=== PATIENT | male | born 1960 | race Caucasian/White ===

== ENCOUNTER 2021-09-05 10:07 | Emergency (ER) | payer OTHER, SELFPAY ==
[2021-09-05] VITALS (16 sets, daily range): BP systolic 132–169; BP diastolic 72–95; PULSE 75–100; RESP 18–38; TEMP 36.3; O2SAT 93–100; BMI 24.3
--- NOTE | 2021-09-05 10:46 | ED.NAVMDI ---
HPI - Nausea/Vomiting/Diarrhea General Chief complaint: Nausea/Vomiting/Diarrhea Stated complaint: Pancreatitis, vomitting Time Seen by Provider: 09/05/21 10:45 Source: patient Mode of arrival: Ambulatory History of Present Illness HPI Narrative: 61-year-old male nonsmoker with history of pancreatitis presents with a chief complaint of severe right-sided abdominal pain this been present since at least this morning. It is incredibly intense and associated with nausea and vomiting. He states he thinks it started after eating. It is worse with eating and worse with motion. He denies any radiation of his pain. He denies any fever or chills. He denies chest pain or shortness of breath. He was most recently seen an outside facility a few weeks ago for pancreatitis and alcoholic gastritis. Related Data Home Medications Medication Instructions Recorded Confirmed Citalopram Hydrobromide 20 mg PO Q DAY #0 09/09/07 (Citalopram HBr) Previous Rx's Medication Instructions Recorded lorazepam 0.5 mg tablet 0.5 mg PO BID PRN #14 tab 09/05/21 ondansetron 4 mg disintegrating 4 mg PO TID-QID PRN #10 tab 09/05/21 tablet Allergies Allergy/AdvReac Type Severity Reaction Status Date / Time Sulfa (Sulfonamide Allergy Verified 09/05/21 10:24 Antibiotics) Review of Systems Review of Systems Narrative: GENERAL: Denies chills, fatigue, malaise, fever, sweats. HEENT: Denies sinus pain, ear pain, sore throat, difficulty swallowing, dizziness. RESPIRATORY: Denies dyspnea, cough, wheezing, hemoptysis, sputum. CARDIOVASCULAR: Denies chest pain, palpitations, orthopnea, edema, GASTROINTESTINAL: See HPI : Denies dysuria, frequency, incontinence, hematuria, urinary retention. MUSCULOSKELETAL: denies weakness, joint pain, or bony pain SKIN: Denies rash, skin lesions, or other NEUROLOGIC: Denies weakness, headache, numbness, change in speech, confusion, seizures, incoordination. PSYCHIATRIC: No concerning psychosocial issues. 12 point review of systems is negative except for those stated above Patient History Social History Smoking Status: Never smoker Smoking Status: Never smoker Substance Use Type: does not use Exam Narrative Exam Narrative: GENERAL: [61] year old patient appears stated age. Well-developed patient, in mild distress. HEAD: Atraumatic. Normocephalic. EYES: Pupils equal round and reactive. Extraocular motions intact. No scleral icterus. No injection or drainage. ENT: Nose without bleeding, purulent drainage. Throat without erythema, tonsillar hypertrophy or exudate. Airway patent. NECK: Trachea midline. Non tender CARDIOVASCULAR: Regular rate and rhythm without murmurs, gallops, or rubs. RESPIRATORY: Clear to auscultation. Breath sounds equal bilaterally. No wheezes, rales, or rhonchi. GASTROINTESTINAL: Abdomen soft, non-tender, nondistended. EXTREMITIES: No edema or joint tenderness. BACK: Nontender without deformity or crepitance. No flank tenderness. NEURO: AOx3. SKIN: No rash or erythema of visible areas Initial Vital Signs Initial Vital Signs: Vital Signs Temperature 97.4 F L 09/05/21 10:19 Pulse Rate 89 09/05/21 10:19 Respiratory Rate 24 09/05/21 10:19 Blood Pressure 140/92 H 09/05/21 10:19 Pulse Oximetry 99 09/05/21 10:19 Course Orders Ordered: ED Orders 09/05/21 11:13 Complete Blood Count AUTO DIFF Stat Comprehensive Metabolic Panel Stat Lipase Stat 09/05/21 11:19 XR ribs LT min 3V w CXR1V Stat 09/05/21 12:48 CT abdomen pelvis w con Stat 09/05/21 13:52 Urine Culture Stat Urine Microscopic Stat Discontinued Medications Hydromorphone HCl (Hydromorphone 1 Mg Inj) 1 mg IV NOW ONE Stop: 09/05/21 11:45 Last Admin: 09/05/21 11:52 Dose: 1 mg Documented by: TERRI Hydromorphone HCl (Hydromorphone 1 Mg Inj) 1 mg IV NOW ONE Stop: 09/05/21 12:48 Last Admin: 09/05/21 13:03 Dose: 1 mg Documented by: TERRI Sodium Chloride (Normal Saline 0.9%) 1,000 mls @ 1,000 mls/hr IV BOLUS ONE Stop: 09/05/21 12:18 Last Infusion: 09/05/21 12:37 Dose: 0 mls/hr Documented by: Admin: 09/05/21 11:23 Dose: 1,000 mls/hr Documented by: TERRI Sodium Chloride (Normal Saline 0.9%) 1,000 mls @ 1,000 mls/hr IV BOLUS ONE Stop: 09/05/21 14:02 Last Infusion: 09/05/21 15:50 Dose: 0 mls/hr Documented by: Admin: 09/05/21 14:10 Dose: 1,000 mls/hr Documented by: TERRI Lorazepam (Lorazepam 2 Mg/Ml Inj) 1 mg IV NOW ONE Stop: 09/05/21 14:22 Last Admin: 09/05/21 14:41 Dose: 1 mg Documented by: BERTHA Ondansetron HCl (Ondansetron 4 Mg/2 Ml Inj) 4 mg IV NOW ONE Stop: 09/05/21 11:45 Last Admin: 09/05/21 12:37 Dose: 4 mg Documented by: TERRI Ondansetron HCl (Ondansetron 4 Mg/2 Ml Inj) 4 mg IV NOW ONE Stop: 09/05/21 12:48 Last Admin: 09/05/21 14:58 Dose: Not Given Documented by: TERRI Pantoprazole Sodium (Pantoprazole 40 Mg Vial) 40 mg IV NOW ONE Stop: 09/05/21 12:48 Last Admin: 09/05/21 13:03 Dose: 40 mg Documented by: TERRI Vital Signs Vital signs: Vital Signs - 8 hr 09/05/21 11:34 09/05/21 12:00 09/05/21 12:23 Pulse Rate 81 80 76 Respiratory Rate Blood Pressure 143/87 H Pulse Oximetry 100 99 98 09/05/21 12:30 09/05/21 12:37 09/05/21 13:00 Pulse Rate 100 H 86 83 Respiratory Rate Blood Pressure 144/84 H 156/79 H Pulse Oximetry 99 100 98 09/05/21 13:13 09/05/21 13:30 09/05/21 14:00 Pulse Rate 78 75 84 Respiratory Rate 24 Blood Pressure 155/82 H 132/76 143/74 H Pulse Oximetry 98 98 97 09/05/21 14:30 09/05/21 15:00 09/05/21 15:30 Pulse Rate 79 78 83 Respiratory Rate 33 H 32 H 18 Blood Pressure 139/80 152/72 H 135/75 Pulse Oximetry 98 96 96 09/05/21 16:00 Pulse Rate 87 Respiratory Rate 22 Blood Pressure 169/86 H Pulse Oximetry 93 MDM - Nausea/Vomiting/Diarrhea Lab Data Result diagrams: 09/05/21 11:13 09/05/21 11:13 Labs: Lab Results 09/05/21 09/05/21 09/05/21 Range/Units 11:13 11:13 13:52 WBC 6.5 (4.5-11.0) X10^3/uL RBC 4.21 L (4.5-5.9) X10^6/uL Hgb 14.6 (13.5-17.5) g/dL Hct 41.1 (41-53) % MCV 97.7 (80-100) fL MCH 34.6 H (26-34) PG MCHC 35.5 (30-36) % RDW 13.6 (11.6-14.8) % Plt Count 121 L (150-400) X10^3/uL Neut % (Auto) 89.0 H (50-75) % Lymph % (Auto) 4.8 L (25-40) % [place] % (Auto) 6.1 (3-14) % Eos % (Auto) 0.0 L (2-4) % Baso % (Auto) 0.1 (0-2) % Neut # (Auto) 5800 (5972-4970) /uL Lymph # (Auto) 300 L (6552-8692) /uL [place] # (Auto) 400 (0-900) /uL Eos # (Auto) 0 (0-450) /uL Baso # (Auto) 0 (0-100) /uL Sodium 141 (137-145) mmol/L Potassium 3.7 (3.4-5.1) mmol/L Chloride 97 L (98-107) mmol/L Carbon Dioxide 17 L (22-32) mmol/L BUN 12 (9-20) mg/dL Creatinine 0.59 L (0.66-1.25) mg/dL Estimated GFR > 60.0 (>60) mL/min BUN/Creatinine Ratio 20.3 (6-22) Glucose 136 H (80-110) mg/dL Calcium 10.0 (8.4-10.2) mg/dL Total Bilirubin 1.4 H (0.2-1.3) mg/dL AST 107 H (17-59) IU/L ALT 58 H (<50) IU/L Alkaline Phosphatase 130 H (38-126) U/L Total Protein 8.7 H (6.3-8.2) g/dL Albumin 4.9 (3.5-5.0) g/dL Globulin 3.8 (1.7-4.1) g/dL Albumin/Globulin Ratio 1.3 (1.0-2.8) Lipase 66 (23-300) U/L Urine RBC None seen (0-5/HPF) Urine WBC 10-30/hpf H (0-5/HPF) Urine Bacteria Many (>30) H (None) Ur Culture Indicated? Specimen cultured Urine Dip Bedside Urine Glucose Negative Bedside Urine Bilirubin - Negative Bedside Urine Ketone +++ 80 Urine Specific [place] 1.015 Bedside Urine Occult Blood +/- Bedside Urine pH 6.0 Bedside Urine Protein + 30 Bedside Urine Urobilinogen - Negative Bedside Urine Nitrite + Positive Bedside Urine Leukocytes +/- 15 Esterase MDM Narrative Medical decision making narrative: Patient with extensive evaluation and reassuring history and physical exam. Labs are unremarkable, advanced imaging shows no significant findings such as bowel obstruction, pancreatitis or other ominous intra-abdominal finding. Pain is well controlled, vomiting is well controlled, patient is tolerating orals. Extensive return precautions given and questions have been answered to his apparent satisfaction Discharge Plan Departure Patient Disposition: Home Clinical Impression: Abdominal pain, Vomiting Instructions: DI for Abdominal Pain-Adult, DI for Vomiting -- Adult Activity Restrictions/Additional Instructions: *You have been diagnosed with [abdominal pain and vomiting. Your history, physical exam, labs and imaging are very reassuring. There is no suggestion of pancreatitis, bowel obstruction or other significant intra-abdominal pathology. *What to do: *Please continue to take your regular medications as directed. [ x] New medication prescriptions sent to your pharmacy: [[facility] ] [ ] New medication written as a paper prescription [ ] No new medications given *Please follow up with your primary care provider in 2-3 days, call for an appointment. Let them know you were seen in the Emergency Department and that we ask that you be seen in follow up. We will electronically transmit a record of today's note if your PCP is in our system * please use a clear liquid diet for the next 48 hours and then avoid alcohol, nicotine, spicy foods, fatty foods and acidic foods. *Return to Emergency Department if you should have any new, worsening or concerning symptoms, such as [fever greater than 101 F, shaking chills, worsening pain, persistent vomiting or other bothersome symptoms] Prescriptions: New ondansetron 4 mg tablet,disintegrating 4 mg PO TID-QID PRN (Reason: nausea and vomiting) Qty: 10 0RF lorazepam 0.5 mg tablet 0.5 mg PO BID PRN (Reason: nausea and vomiting) Qty: 14 0RF No Action Citalopram Hydrobromide (Citalopram HBr) 20 mg PO Q DAY Qty: 0 0RF
[2021-09-05 11:17] LABS: Add Manual Diff / Slide Review NO; Basophils Absolute Auto 0 /uL (0-100); Basophils Percent Auto 0.1 % (0-2); Eosinophils Absolute Auto 0 /uL (0-450); Hematocrit 41.1 % (41-53); Hemoglobin 14.6 g/dL (13.5-17.5); Lymphocytes Absolute Auto 300 /uL (1100-4500); Lymphocytes Percent Auto 4.8 % (25-40); Mean Corpuscular HGB Conc 35.5 % (30-36); Mean Corpuscular Hemoglobin 34.6 PG (26-34); Mean Corpuscular Volume 97.7 fL (80-100); Monocytes Absolute Auto 400 /uL (0-900); Monocytes Percent Auto 6.1 % (3-14); Neutrophils Absolute Auto 5800 /uL (1500-7000); Platelet Count 121 X10^3/uL (150-400); Red Blood Cell Count 4.21 X10^6/uL (4.5-5.9); Red Cell Distribution Width 13.6 % (11.6-14.8); White Blood Cell Count 6.5 X10^3/uL (4.5-11.0)
[2021-09-05] MEDS: ONDANSETRON 4 MG/2 ML INJ (11:18)
--- NOTE | 2021-09-05 11:19 | DI.RAD.S_ITS ---
PROCEDURE: XR RIBS LT MIN 3V W CXR1V INDICATIONS: fall over carpet and landed on toilet TECHNIQUE: 2 views of the left ribs were acquired, along with a single view chest. COMPARISON: None. FINDINGS: Surgical changes and devices: None. Bones and chest wall: Minimally displaced fracture involving left anterolateral 9th rib is seen. No suspicious bony lesions. Overlying soft tissues appear unremarkable. Lungs and pleura: No pleural effusions or pneumothorax. Lungs appear clear. Mediastinum: Mediastinal contours appear normal. Heart size is normal. IMPRESSION: Minimally displaced left anterolateral 9th rib fracture. No focal infiltrate, pleural effusion or pneumothorax. Dictated by: Mike Regalado M.D. on 09/05/2021 at 12:06 Approved by: Mike Regalado M.D. on 09/05/2021 at 12:07
[2021-09-05] MEDS: SODIUM CHLORIDE 0.9% 1,000 ML 1000 ML IV ×2 (11:23→14:10)
[2021-09-05 11:30] LABS: Albumin 4.9 g/dL (3.5-5.0); Albumin Globulin Ratio 1.3 (1.0-2.8); Alkaline Phosphatase 130 U/L (38-126); Aspartate Aminotransferase 107 IU/L (17-59); BUN Creatinine Ratio 20.3 (6-22); Bilirubin Total 1.4 mg/dL (0.2-1.3); Blood Urea Nitrogen 12 mg/dL (9-20); Carbon Dioxide 17 mmol/L (22-32); Chloride 97 mmol/L (98-107); Estimated Glomerular Filt Rate > 60.0 mL/min (>60); Globulin 3.8 g/dL (1.7-4.1); Glucose 136 mg/dL (80-110); HEMOLYSIS < 15 (0-50); Lipase 66 U/L (23-300); Potassium 3.7 mmol/L (3.4-5.1); Sodium 141 mmol/L (137-145); Total Protein 8.7 g/dL (6.3-8.2)
[2021-09-05 11:37] LABS: Alanine Aminotransferase 58 IU/L (<50)
[2021-09-05] MEDS: HYDROMORPHONE 1 MG INJ IV ×2 (11:52→13:03)
[2021-09-05] MEDS: ONDANSETRON 4 MG/2 ML INJ IV (12:37)
--- NOTE | 2021-09-05 12:48 | DI.CT.S_ITS ---
PROCEDURE: CT ABDOMEN PELVIS W CON INDICATIONS: severe abdominal pain TECHNIQUE: After the administration of intravenous contrast, axial sections acquired from the lung bases to the pubic symphysis. Coronal and sagittal reformats were performed. For radiation dose reduction, the following was used: automated exposure control, adjustment of mA and/or kV according to patient size. COMPARISON: [facility], CR, XR RIBS LT MIN 3V W CXR1V, 09/05/2021, 11:12. FINDINGS: Image quality: Excellent. Lung bases: Unremarkable. Heart: No significant findings. ABDOMEN: Liver: Liver is normal in size. Moderate to severe hepatic steatosis is seen, no discrete hepatic lesion. No signs of liver laceration. Gallbladder: Gallbladder is surgically absent. Biliary ducts: Unremarkable. Pancreas: Unremarkable. Spleen: Unremarkable. Adrenal Glands: Unremarkable. Kidneys and Ureters: Unremarkable. Stomach and Bowel: There is no bowel obstruction or abnormal bowel wall thickening. Sigmoid diverticulosis is seen, no CT evidence of acute diverticulitis. No mesenteric fat stranding. Small hiatal hernia is seen. Peritoneum: No abnormal intraperitoneal fluid. No free air. Ventral Wall: No hernias. Abdominal Nodes: No retroperitoneal or mesenteric adenopathy by size criteria. Vessels: Aorta and inferior vena cava are normal in size. [id number] atherosclerotic calcifications in abdominal aorta is seen. PELVIS: Pelvic Organs: Unremarkable. Bladder: Unremarkable. Pelvic Nodes: No enlarged lymph nodes. Miscellaneous: No hernias are seen. Bones: No suspicious intraosseous lesion. Patient's known minimally displaced left anterolateral 9th rib fracture is again seen series 4, image 12. No acute vertebral body compression fracture. Degenerative disc disease at L3-4 through L5-S1 levels are seen. Osteoarthritic changes are noted throughout bony pelvis. No acute pelvic fracture or dislocation. IMPRESSION: 1. No acute solid organ injury within abdomen or pelvis. No bowel obstruction. No free fluid or free air. 2. Moderate to severe hepatic steatosis. Prior cholecystectomy. 3. Minimally displaced left lateral 9th rib fracture. No other fracture or dislocation is seen in abdomen or pelvis. Dictated by: Mike Regalado M.D. on 09/05/2021 at 13:31 Approved by: Mike Regalado M.D. on 09/05/2021 at 13:37
[2021-09-05] MEDS: PANTOPRAZOLE 40 MG VIAL IV (13:03)
[2021-09-05 14:13] LABS: RBC Urine None Seen (0-5/HPF); WBC Urine 10-30/HPF (0-5/HPF)
[2021-09-05 14:14] LABS: Bacteria Urine Many (>30); Culture Indicated Urine Specimen Cultured
[2021-09-05] MEDS: LORazepam 2 MG/ML INJ 1 MG IV (14:41)
== END 2021-09-05 16:21 | disposition home or self-care (01) ==
PROVIDERS: Emergency Provider Emergency Medicine
DX: R10.9 Unspecified abdominal pain (principal); R11.2 Nausea with vomiting, unspecified
CPT/HCPCS: 36415; 71101; 74177; 80053; 81003; 81015; 83690; 85025; 87077; 87086; 87186; 93005; 93010; 96361; 96374; 96375; 96376; 99284; C9113; J1170; J2060; J2405

== ENCOUNTER 2021-09-06 02:46 | Emergency (ER) | payer OTHER, MEDICAID, SELFPAY ==
[2021-09-06] VITALS (9 sets, daily range): BP systolic 135–165; BP diastolic 89–92; PULSE 66–87; RESP 12–23; TEMP 37.1; O2SAT 94–100
--- NOTE | 2021-09-06 02:55 | ED_ITS ---
HPI - Abdominal Pain General Chief Complaint: Abdominal Pain Stated Complaint: throwing up, body aches Time Seen by Provider: 09/06/21 02:54 Source: patient and old records reviewed Mode of arrival: Ambulatory Limitations: no limitations History of Present Illness HPI narrative: This is a 61-year-old male with history of pancreatitis who returns after being seen on 07/05 for right upper quadrant abdominal pain, nausea vomiting body aches that started acutely yesterday. Patient states he has had a couple episod es in the past over the past year. He has felt shaky and chilled. He denied chest pain or shortness of breath. He states pain is right upper quadrant but also into his back. Patient denies diarrhea constipation states he has had normal bowel movements with no hematochezia or melena. Denies dysuria, urgency or frequency. States he has been told he has had frequent bladder infections in the past. Patient states he has had a cholecystectomy and appendectomy he denies daily medications. He is allergic to sulfa. Denies tobacco, denies alcohol, denies illicit. Note from 09/05/21, notes patient seen recently for alcoholic gastritis and pancreatitis. Related Data Home Medications Medication Instructions Recorded Confirmed Citalopram Hydrobromide 20 mg PO Q DAY #0 09/09/07 (Citalopram HBr) Previous Rx's Medication Instructions Recorded lorazepam 0.5 mg tablet 0.5 mg PO BID PRN #14 tab 09/05/21 ondansetron 4 mg disintegrating 4 mg PO TID-QID PRN #10 tab 09/05/21 tablet metoclopramide HCl 10 mg tablet 10 mg PO Q6H #60 tab 09/07/21 (Reglan) Allergies Allergy/AdvReac Type Severity Reaction Status Date / Time Sulfa (Sulfonamide Allergy Verified 09/06/21 07:29 Antibiotics) Review of Systems Review of Systems ROS Unobtainable: All systems reviewed & are unremarkable except as noted in HPI and below Patient History Medical History Fatty liver due to alcoholism History of alcohol abuse Pancreatitis Surgical History S/P cholecystectomy Social History Smoking Status: Never smoker Smoking Status: Never smoker Substance Use Type: does not use Exam Narrative Exam Narrative: GENERAL: Alert and oriented x three, male in moderate distress. HEENT: Head normocephalic, atraumatic, EOMI, pupils reactive, no scleral icterus or jaundice. Face symmetric, moist mucous membranes NECK: Supple, full range of motion CARDIOVASCULAR: Regular rate and rhythm without murmurs, rubs or gallops. RESPIRATORY: Breath sounds equal bilaterally, no wheezes rales or rhonchi. ABDOMEN: Soft, nondistended. Positive for right upper quadrant tenderness. Bowel sounds all 4 quadrants. No guarding or rebound, rigidity, no mass : No CVA tenderness EXTREMITIES: Normal range of motion, no clubbing or edema. Neurovascularly intact. NEUROLOGICAL: Cranial nerves II through XII grossly intact. Moving all extremities SKIN: Warm, dry, no petechiae, no rashes or lesions. Initial Vital Signs Initial Vital Signs: Vital Signs Temperature 98.8 F 09/06/21 02:56 Pulse Rate 87 09/06/21 02:56 Respiratory Rate 22 09/06/21 02:56 Blood Pressure 165/89 H 09/06/21 02:56 Pulse Oximetry 98 09/06/21 02:56 Course Orders Ordered: Discontinued Medications Sodium Chloride (Normal Saline 0.9%) 1,000 mls @ 150 mls/hr IV CONT TAYLOR Last Infusion: 09/06/21 06:46 Dose: 150 mls/hr Documented by: Admin: 09/06/21 03:49 Dose: 150 mls/hr Documented by: MARY Ceftriaxone Sodium 1,000 mg/ (Sodium Chloride) 100 mls @ 200 mls/hr IV NOW ONE Stop: 09/06/21 04:31 Last Infusion: 09/06/21 05:31 Dose: 0 mls/hr Documented by: Admin: 09/06/21 04:47 Dose: 200 mls/hr Documented by: MARY Ketorolac Tromethamine (Ketorolac 30 Mg/Ml Vial) 15 mg IV NOW ONE Stop: 09/06/21 02:56 Last Admin: 09/06/21 03:48 Dose: 15 mg Documented by: MARY Ondansetron HCl (Ondansetron 4 Mg/2 Ml Inj) 4 mg IV NOW ONE Stop: 09/06/21 02:56 Last Admin: 09/06/21 03:48 Dose: 4 mg Documented by: MARY Reevaluation(s) Reevaluation #1: Patient has improved. We discussed that his labs have also improved. I recommend that he start his medications which were sent to local pharmacy and to fill these they may be helpful. We discussed patient's ultrasound which shows possible cystic lesion or changes and patient is well aware of these and states they have been imaged before. Time: 04:51 Vital Signs Vital signs: Vital Signs - 8 hr 09/06/21 02:56 09/06/21 03:47 09/06/21 04:00 Temperature 98.8 F Pulse Rate 87 72 66 Respiratory Rate 22 21 13 Blood Pressure 165/89 H Pulse Oximetry 98 100 94 09/06/21 04:30 09/06/21 05:00 09/06/21 05:30 Temperature Pulse Rate 78 66 67 Respiratory Rate 22 16 12 Blood Pressure Pulse Oximetry 98 97 97 09/06/21 06:00 Temperature Pulse Rate 67 Respiratory Rate 14 Blood Pressure Pulse Oximetry 96 MDM - Abdominal Pain Lab Data Result diagrams: 09/06/21 03:45 09/06/21 03:45 Labs: Lab Results 09/06/21 09/06/21 09/06/21 Range/Units 03:30 03:30 03:45 WBC 6.0 (4.5-11.0) X10^3/uL RBC 4.11 L (4.5-5.9) X10^6/uL Hgb 13.9 (13.5-17.5) g/dL Hct 40.1 L (41-53) % MCV 97.5 (80-100) fL MCH 34.0 (26-34) PG MCHC 34.8 (30-36) % RDW 13.9 (11.6-14.8) % Plt Count 103 L (150-400) X10^3/uL Neut % (Auto) 81.9 H (50-75) % Lymph % (Auto) 9.8 L (25-40) % [place] % (Auto) 8.2 (3-14) % Eos % (Auto) 0.0 L (2-4) % Baso % (Auto) 0.1 (0-2) % Neut # (Auto) 4900 (8701-3575) /uL Lymph # (Auto) 600 L (8387-4837) /uL [place] # (Auto) 500 (0-900) /uL Eos # (Auto) 0 (0-450) /uL Baso # (Auto) 0 (0-100) /uL Sodium (137-145) mmol/L Potassium (3.4-5.1) mmol/L Chloride (98-107) mmol/L Carbon Dioxide (22-32) mmol/L BUN (9-20) mg/dL Creatinine (0.66-1.25) mg/dL Estimated GFR (>60) mL/min BUN/Creatinine Ratio (6-22) Glucose (80-110) mg/dL Lactate (0.7-2.1) mmol/L Calcium (8.4-10.2) mg/dL Total Bilirubin (0.2-1.3) mg/dL AST (17-59) IU/L ALT (<50) IU/L Alkaline Phosphatase (38-126) U/L Total Protein (6.3-8.2) g/dL Albumin (3.5-5.0) g/dL Globulin (1.7-4.1) g/dL Albumin/Globulin Ratio (1.0-2.8) Lipase (23-300) U/L Ur Bilirubin Confirm Negative (Negative) Urine RBC 1-5/hpf (0-5/HPF) Urine WBC 5-10/hpf H (0-5/HPF) Urine Bacteria Many (>30) H (None) Ur Culture Indicated? Culture not indicate Micro UA Comment * 09/06/21 09/06/21 09/06/21 Range/Units 03:45 03:45 06:05 WBC (4.5-11.0) X10^3/uL RBC (4.5-5.9) X10^6/uL Hgb (13.5-17.5) g/dL Hct (41-53) % MCV (80-100) fL MCH (26-34) PG MCHC (30-36) % RDW (11.6-14.8) % Plt Count (150-400) X10^3/uL Neut % (Auto) (50-75) % Lymph % (Auto) (25-40) % [place] % (Auto) (3-14) % Eos % (Auto) (2-4) % Baso % (Auto) (0-2) % Neut # (Auto) (2233-3914) /uL Lymph # (Auto) (5750-5174) /uL [place] # (Auto) (0-900) /uL Eos # (Auto) (0-450) /uL Baso # (Auto) (0-100) /uL Sodium 138 (137-145) mmol/L Potassium 3.3 L (3.4-5.1) mmol/L Chloride 100 (98-107) mmol/L Carbon Dioxide 26 (22-32) mmol/L BUN 12 (9-20) mg/dL Creatinine 0.66 (0.66-1.25) mg/dL Estimated GFR > 60.0 (>60) mL/min BUN/Creatinine Ratio 18.2 (6-22) Glucose 132 H (80-110) mg/dL Lactate 2.3 H 0.8 (0.7-2.1) mmol/L Calcium 9.8 (8.4-10.2) mg/dL Total Bilirubin 1.3 (0.2-1.3) mg/dL AST 71 H (17-59) IU/L ALT 43 (<50) IU/L Alkaline Phosphatase 108 (38-126) U/L Total Protein 8.0 (6.3-8.2) g/dL Albumin 4.5 (3.5-5.0) g/dL Globulin 3.5 (1.7-4.1) g/dL Albumin/Globulin Ratio 1.3 (1.0-2.8) Lipase 162 D (23-300) U/L Ur Bilirubin Confirm (Negative) Urine RBC (0-5/HPF) Urine WBC (0-5/HPF) Urine Bacteria (None) Ur Culture Indicated? Micro UA Comment Point of care testing: Urine Dip Bedside Urine Glucose Negative Bedside Urine Bilirubin + 1 Bedside Urine Ketone + 15 Urine Specific [place] 1.015 Bedside Urine Occult Blood +/- Bedside Urine pH 6.5 Bedside Urine Protein + 30 Bedside Urine Urobilinogen +/- 1mg Bedside Urine Nitrite - Negative Bedside Urine Leukocytes + 70 Esterase Imaging Data US - abdomen: Radiologist's Impression: Hepatic steatosis. Intermittent hypoechoic structure within the head of the pancreas. Possibly an intraductal papillary mucinous neoplasm. Recommend contrast enhanced MRI of the abdomen/MRCP for further evaluation. Postsurgical findings of cholecystectomy. Common duct is normal in diameter and measures 10 mm. No free fluid or adenopathy noted. MDM Narrative Medical decision making narrative: This is a 61-year-old male comes in with abdominal pain, nausea and vomiting patient was seen here the day prior had CT abdomen pelvis, lab work which was reviewed and today has improved. Patient improved with medications. We repeated with an ultrasound and he has possible lesions on the pancreas. When discussed patient states he is aware these they have been imaged in are followed. Patient has reassuring labs and improving exam he was discharged home and to fill his medications which he had not from the day prior as they will likely be helpful for him symptoms. Discharge Plan Departure Patient Disposition: Home Clinical Impression: Abdominal pain Instructions: DI for Abdominal Pain-Adult Activity Restrictions/Additional Instructions: Your abdominal labs and liver enzymes are improved from yesterday. Your urine shows possible signs of infection I would await urine culture and if positive can have antibiotics called in for you. I would recommend filling and starting the medications prescribed by Dr. Ferreira yesterday. Your prescription was sent to [facility] in [facility]. Please return for fevers, new chest pain or shortness of breath, persistent vomiting, black or bloody stools or other new or concerning symptoms. Prescriptions: No Action Citalopram Hydrobromide (Citalopram HBr) 20 mg PO Q DAY Qty: 0 0RF ondansetron 4 mg tablet,disintegrating 4 mg PO TID-QID PRN (Reason: nausea and vomiting) Qty: 10 0RF lorazepam 0.5 mg tablet 0.5 mg PO BID PRN (Reason: nausea and vomiting) Qty: 14 0RF metoclopramide HCl [Reglan] 10 mg tablet 10 mg PO Q6H Qty: 60 0RF
--- NOTE | 2021-09-06 02:56 | DI.US.S_ITS ---
PROCEDURE: US ABDOMEN LIMITED INDICATIONS: RUQ PAIN, VOMITING TECHNIQUE: Real-time scanning was performed of the abdominal and retroperitoneal organs, with image documentation. COMPARISON: [facility], CT, CT ABDOMEN PELVIS W CON, 09/05/2021, 13:05. FINDINGS: Liver: Liver is normal in size. Increased liver parenchymal echotexture is seen consistent with hepatic steatosis unchanged from CT study. No discrete hepatic lesion is noted. Gallbladder: Gallbladder is surgically absent. Biliary ducts: Intrahepatic bile ducts are non-dilated. Extrahepatic bile duct caliber measures 9.5 mm. Normal is 6-7 mm or less in diameter, or 10 mm or less post-cholecystectomy. Pancreas: There is a 9 x 7 x 9 mm hypoechoic structure seen in pancreatic head region with through acoustic enhancement. No internal vascularity is seen. Rest of the pancreas is within normal limits. Miscellaneous: No free abdominal fluid. IMPRESSION: 1. Hepatic steatosis, no discrete hepatic lesion. 2. Indeterminate subcentimeter hypoechoic structure involving pancreatic head which may represent IPMN. This can be further evaluated with MRI of abdomen and MRCP if clinically indicated. 3. Postsurgical changes from cholecystectomy. Common bile duct size is in the upper limits of normal. No intrahepatic biliary ductal dilatation. No significant discrepancies from preliminary reading. Dictated by: Mike Regalado M.D. on 09/06/2021 at 8:06 Approved by: Mike Regalado M.D. on 09/06/2021 at 8:09
[2021-09-06] MEDS: KETOROLAC 30 MG/ML VIAL 15 MG IV (03:48)
[2021-09-06] MEDS: ONDANSETRON 4 MG/2 ML INJ IV (03:48)
[2021-09-06] MEDS: SODIUM CHLORIDE 0.9% 1,000 ML 150 ML IV (03:49)
[2021-09-06 03:55] LABS: Add Manual Diff / Slide Review NO; Basophils Absolute Auto 0 /uL (0-100); Basophils Percent Auto 0.1 % (0-2); Eosinophils Absolute Auto 0 /uL (0-450); Hematocrit 40.1 % (41-53); Hemoglobin 13.9 g/dL (13.5-17.5); Lymphocytes Absolute Auto 600 /uL (1100-4500); Lymphocytes Percent Auto 9.8 % (25-40); Mean Corpuscular HGB Conc 34.8 % (30-36); Mean Corpuscular Volume 97.5 fL (80-100); Monocytes Absolute Auto 500 /uL (0-900); Monocytes Percent Auto 8.2 % (3-14); Neutrophils Absolute Auto 4900 /uL (1500-7000); Neutrophils Percent Auto 81.9 % (50-75); Platelet Count 103 X10^3/uL (150-400); Red Blood Cell Count 4.11 X10^6/uL (4.5-5.9); Red Cell Distribution Width 13.9 % (11.6-14.8)
[2021-09-06 03:59] LABS: Lactate (Lactic Acid) 2.3 mmol/L (0.7-2.1)
[2021-09-06 04:01] LABS: Alanine Aminotransferase 43 IU/L (<50); Albumin 4.5 g/dL (3.5-5.0); Albumin Globulin Ratio 1.3 (1.0-2.8); Alkaline Phosphatase 108 U/L (38-126); Aspartate Aminotransferase 71 IU/L (17-59); BUN Creatinine Ratio 18.2 (6-22); Bilirubin Total 1.3 mg/dL (0.2-1.3); Blood Urea Nitrogen 12 mg/dL (9-20); Calcium 9.8 mg/dL (8.4-10.2); Carbon Dioxide 26 mmol/L (22-32); Chloride 100 mmol/L (98-107); Estimated Glomerular Filt Rate > 60.0 mL/min (>60); Globulin 3.5 g/dL (1.7-4.1); Glucose 132 mg/dL (80-110); HEMOLYSIS < 15 (0-50); Lipase 162 U/L (23-300); Potassium 3.3 mmol/L (3.4-5.1); Sodium 138 mmol/L (137-145)
[2021-09-06 04:25] LABS: Ictotest Urine Negative (Negative)
[2021-09-06 04:38] LABS: Bacteria Urine Many (>30); RBC Urine 1-5/HPF (0-5/HPF); WBC Urine 5-10/HPF (0-5/HPF)
[2021-09-06] MEDS: cefTRIAXone 1,000 MG in SODIUM CHLORIDE 0.9% 100 ML 200 ML IV (04:47)
[2021-09-06 05:45] LABS: Reflexed Lactate in 2 Hours Y
[2021-09-06 06:21] LABS: Lactate 2HR (Lactic Acid Rflx) 0.8 mmol/L (0.7-2.1)
== END 2021-09-06 06:50 | disposition home or self-care (01) ==
PROVIDERS: Emergency Provider Emergency Medicine
DX: R10.11 Right upper quadrant pain (principal); R11.2 Nausea with vomiting, unspecified
CPT/HCPCS: 36415; 76705; 80053; 81003; 81015; 83605; 83690; 85025; 87040; 87077; 87086; 87186; 99284; J0696; J1885; J2405

== ENCOUNTER 2021-09-06 07:13 | Emergency (ER) | payer OTHER, MEDICAID, SELFPAY ==
[2021-09-06] VITALS (8 sets, daily range): BP systolic 118–158; BP diastolic 69–94; PULSE 64–97; RESP 16–18; TEMP 36.6; O2SAT 95–100; BMI 25.0
--- NOTE | 2021-09-06 08:35 | ED_ITS ---
HPI - Nausea/Vomiting/Diarrhea General Chief complaint: Nausea/Vomiting/Diarrhea Stated complaint: throwing up Time Seen by Provider: 09/06/21 07:38 Source: patient Mode of arrival: Ambulatory History of Present Illness HPI Narrative: Will this is the patient's 3rd ER visit in the last 2 days. He was discharged this morning just prior to my arrival. He was also seen here yesterday. He has a history of pancreatitis/alcoholic pancreatitis. He had onset of epigastric abdominal pain 2 days ago. He has developed nausea vomiting and ongoing pain. The pain is not currently radiated to the back. After having a com closure to his recent ER visit, he developed nausea vomiting almost immediately after discharge. He was discharged on lorazepam and Zofran yesterday yesterday, he failed to get to the pharmacy to cotton picker his medications. CT was done yesterday. He has fatty liver, status post cholecystectomy. The pancreas is normal in CT. He fell about a week ago, a left 9th rib fracture is seen on CT. Ultrasound was done last night. Ultrasound revealed a hypoechoic structure at the pancreatic head. Radiology suggested MRCP. Related Data Home Medications Medication Instructions Recorded Confirmed Citalopram Hydrobromide 20 mg PO Q DAY #0 09/09/07 (Citalopram HBr) Previous Rx's Medication Instructions Recorded lorazepam 0.5 mg tablet 0.5 mg PO BID PRN #14 tab 09/05/21 ondansetron 4 mg disintegrating 4 mg PO TID-QID PRN #10 tab 09/05/21 tablet metoclopramide HCl 10 mg tablet 10 mg PO Q6H #60 tab 09/07/21 (Reglan) Allergies Allergy/AdvReac Type Severity Reaction Status Date / Time Sulfa (Sulfonamide Allergy Verified 09/06/21 07:29 Antibiotics) Review of Systems Constitutional Constitutional: Reports anorexia, Denies body ache(s), Denies chills, Denies fatigue, Denies fever(s), Denies headache(s) and Denies weakness ENT Ears, Nose, Mouth, and Throat: Denies dizziness, Denies headache(s), Denies neck pain, Denies sinus pressure and Denies sore throat Cardiovascular Cardiovascular: Denies chest pain, Denies syncope, Denies rapid heart rate, Denies pedal edema and Denies dyspnea Respiratory Respiratory: Denies cough and Denies dyspnea Gastrointestinal Gastrointestinal: Reports as per HPI Genitourinary Genitourinary: Denies dysuria, Denies testicular pain and Denies urinary frequency Musculoskeletal Musculoskeletal: Reports back pain and Denies neck pain Integumentary/Breasts Skin/Breast: Denies lesions and Denies rash Neurologic Neurologic: Denies confusion, Denies dizziness, Denies syncope, Denies headache(s) and Denies weakness Psychiatric Psychiatric: Denies confusion and Denies depression Endocrine Endocrine: Denies fatigue Hematologic/Lymphatic On Anticoagulants: No Patient History Medical History (Updated 09/06/21 @ 13:00 by Jose Gutierrez MD) Fatty liver due to alcoholism History of alcohol abuse Pancreatitis Surgical History (Updated 09/06/21 @ 13:00 by Jose Gutierrez MD) S/P cholecystectomy Social History Smoking Status: Never smoker Smoking Status: Never smoker alcohol intake frequency: other Substance Use Type: does not use Exam Initial Vital Signs Initial Vital Signs: Vital Signs Temperature 98 F 09/06/21 07:27 Pulse Rate 87 09/06/21 07:27 Respiratory Rate 17 09/06/21 07:27 Blood Pressure 158/94 H 09/06/21 07:27 Pulse Oximetry 100 09/06/21 07:27 Const General: cooperative, in distress and anxious Orientation: Orientation (Normal) [facility] Head: normal to inspection, normocephalic and atraumatic Mouth: oral mucosae normal Throat: posterior oropharynx normal Eyes General: appearance normal, both eyes and all related structures Other: No icterus Neck Neck: supple, No lymphadenopathy and No JVD Thyroid: thyroid normal Chest Chest: normal inspection of the chest Resp Effort & Inspection: normal respiratory effort Auscultation: clear to auscultation bilaterally Cardio Rate: regular rate Rhythm: regular rhythm Heart Sounds: S1 normal, S2 normal, no click and no gallops GI Other: Epigastric tenderness with mild guarding. No distension. Normal bowel sounds. No palpable masses. Back/Spine/Pelvis Back: normal to inspection and No CVA tenderness Skin General: no rashes or lesions noted Neuro General: patient alert, patient awake and no focal motor deficits Extrem General: normal to inspection, no pedal edema and no calf tenderness Psych Appearance: grossly normal Course Course Course Narrative: Pain and nausea have improved greatly after receiving Dilaudid and Reglan. MRI revealed multiple pancreatic findings(IPMNs), see the radiology read. The patient is familiar with 1-3 mm lesions in his pancreas from a prior study. He is advised to contact his PCM and arrange GI follow-up. He responded well to Reglan. I prescribed this medication for him. Orders Ordered: Discontinued Medications Diphenhydramine HCl (Diphenhydramine 50 Mg/Ml Vial) 25 mg IV NOW ONE Stop: 09/06/21 08:57 Last Admin: 09/06/21 10:21 Dose: 25 mg Documented by: NATALIA Hydromorphone HCl (Hydromorphone 1 Mg Inj) 1 mg IV NOW ONE Stop: 09/06/21 08:57 Last Admin: 09/06/21 10:21 Dose: 1 mg Documented by: NATALIA Sodium Chloride (Normal Saline 0.9%) 1,000 mls @ 1,000 mls/hr IV BOLUS ONE Stop: 09/06/21 09:55 Last Infusion: 09/06/21 12:27 Dose: 0 mls/hr Documented by: Admin: 09/06/21 10:21 Dose: 1,000 mls/hr Documented by: NATALIA Metoclopramide HCl (Metoclopramide 10 Mg/2 Ml Inj) 10 mg IV NOW ONE Stop: 09/06/21 08:57 Last Admin: 09/06/21 10:21 Dose: 10 mg Documented by: NATALIA Vital Signs Vital signs: Vital Signs - 8 hr 09/06/21 07:27 09/06/21 08:30 09/06/21 09:30 Temperature 98 F Pulse Rate 87 66 69 Respiratory Rate 17 17 17 Blood Pressure 158/94 H 147/69 H 138/77 Pulse Oximetry 100 97 95 09/06/21 10:30 09/06/21 11:00 09/06/21 11:30 Temperature Pulse Rate 70 64 94 H Respiratory Rate 17 18 Blood Pressure 131/74 129/73 118/72 Pulse Oximetry 95 97 95 09/06/21 12:00 09/06/21 12:30 Temperature Pulse Rate 97 H 65 Respiratory Rate 16 16 Blood Pressure 125/75 132/76 Pulse Oximetry 97 97 MDM - Nausea/Vomiting/Diarrhea Lab Data Result diagrams: 09/06/21 10:11 09/06/21 10:11 Labs: Lab Results 09/06/21 09/06/21 Range/Units 10:11 10:11 WBC 4.4 L (4.5-11.0) X10^3/uL RBC 3.51 L (4.5-5.9) X10^6/uL Hgb 12.0 L (13.5-17.5) g/dL Hct 34.3 L (41-53) % MCV 97.7 (80-100) fL MCH 34.2 H (26-34) PG MCHC 35.0 (30-36) % RDW 13.9 (11.6-14.8) % Plt Count 72 L (150-400) X10^3/uL Neut % (Auto) 78.3 H (50-75) % Lymph % (Auto) 13.1 L (25-40) % [place] % (Auto) 8.3 (3-14) % Eos % (Auto) 0.2 L (2-4) % Baso % (Auto) 0.1 (0-2) % Neut # (Auto) 3400 (1909-5291) /uL Lymph # (Auto) 600 L (9891-8762) /uL [place] # (Auto) 400 (0-900) /uL Eos # (Auto) 0 (0-450) /uL Baso # (Auto) 0 (0-100) /uL Sodium 136 L (137-145) mmol/L Potassium 3.4 (3.4-5.1) mmol/L Chloride 103 (98-107) mmol/L Carbon Dioxide 27 (22-32) mmol/L BUN 12 (9-20) mg/dL Creatinine 0.61 L (0.66-1.25) mg/dL Estimated GFR > 60.0 (>60) mL/min BUN/Creatinine Ratio 19.7 (6-22) Glucose 113 H (80-110) mg/dL Calcium 8.7 (8.4-10.2) mg/dL Total Bilirubin 0.8 (0.2-1.3) mg/dL AST 53 (17-59) IU/L ALT 36 (<50) IU/L Alkaline Phosphatase 83 (38-126) U/L Total Protein 6.4 (6.3-8.2) g/dL Albumin 3.5 (3.5-5.0) g/dL Globulin 2.9 (1.7-4.1) g/dL Albumin/Globulin Ratio 1.2 (1.0-2.8) Lipase 227 (23-300) U/L Ethyl Alcohol < 10 ( - 10) mg/dL Imaging Data Abdominal MRI/MRCP: Radiologist's Impression: Launch?Image [address] [id number] Magnetic Resonance Report Signed Patient: Elvis Zheng MR#: [id number] : 1960 Acct:[id number] Age/Sex: 61 / M Date of Service: 09/06/21 Loc: ED Accession Number: [id number] ?? Procedure: MR abdomen wo con Ordering Provider: Jose Gutierrez MD PROCEDURE:? MR ABDOMEN WO CON ? INDICATIONS:? abdominal pain ? TECHNIQUE:? Coronal HASTE through the abdomen, axial 2-D FLASH in- and [id number], and breath-hold T2 FSE with fat saturation through the biliary system and pancreas.? Oblique coronal and axial thin-slice HASTE, radial thick-slab HASTE centered on the extrahepatic bile ducts.? ? ? Intravenous secretin:? Not requested.? ? COMPARISON:? [facility], CT, CT ABDOMEN PELVIS W CON, 09/05/2021, 13:05.? [facility], US, US ABDOMEN LIMITED, 09/06/2021, 3:42. ? FINDINGS:? Image quality:? Excellent.? ? Pancreas and biliary system:? Status post cholecystectomy.? Mild prominence of the central intrahepatic bile ducts and the common bile duct is most likely secondary to the prior cholecystectomy.? The common hepatic duct measures approximately 9 mm in diameter.? The common bile duct measures 7 mm in diameter at the level of the pancreatic head.? No intraductal filling defect is seen. ? A T2-hyperintense cyst is seen in the head of the pancreas that measures 1.1 x 1.1 x 0.8 cm (image 24 of series 5 and image 12 of series 3).? There is no pancreatic ductal dilatation.? No solid pancreatic mass is seen.? Additional 1.1 x 0.5 by 0.6 cm cyst is seen in the pancreatic tail (21/5, 13/3). ? Other solid organs:? Markedly decreased signal on out of phase T1-weighted image s throughout the liver is consistent with severe fatty infiltration.? The liver is mildly enlarged, measuring 20.6 cm in craniocaudal dimension.? Spleen is normal in size.? No adrenal nodules.? Both kidneys are normal in size, without hydronephrosis.? ? Nodes and vessels:? No retroperitoneal or mesenteric adenopathy by size criteria.? Aorta and inferior vena cava are normal in size.? ? Bowel and peritoneum:? Unenhanced bowel loops are normal in caliber.? No free fluid.? ? Lung bases:? No basal pleural effusions.? Heart size is normal.? ? Bones and soft tissues:? No ventral hernias.? Bone marrow is of normal overall signal.? Left-sided rib fracture demonstrated on recent CT is not well visualized with MRI.? ? IMPRESSION:? 1. Status post cholecystectomy with associated prominence of the extrahepatic and central intrahepatic biliary ducts.? No filling defect is seen within the biliary colle cting system. ? 2. Hepatomegaly and diffuse severe hepatic steatosis. ? 3. 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 No dilation of the main pancreatic duct.? Recommend annual contrast enhanced pancreas protocol MRI or CT to demonstrate stability. ? ? Dictated by: Allen Meyer M.D. on 09/06/2021 at 10:41 ? ? Approved by: Allen Meyer M.D. on 09/06/2021 at 10:52?? Discharge Plan Departure Patient Disposition: Home Clinical Impression: Chronic pancreatitis Instructions: DI for Pancreatitis Activity Restrictions/Additional Instructions: Drink plenty of water. You should be on a low-fat diet only. Reglan every 6-8 hours as needed for abdominal pain. Followup with your PCM, you need to follow-up with a net making supervisor. As we discussed, MRI shows small lesions on your pancreas that need to be followed closely. Return to the ER as necessary. Prescriptions: New metoclopramide HCl [Reglan] 10 mg tablet 10 mg PO Q6H Qty: 60 0RF No Action Citalopram Hydrobromide (Citalopram HBr) 20 mg PO Q DAY Qty: 0 0RF ondansetron 4 mg tablet,disintegrating 4 mg PO TID-QID PRN (Reason: nausea and vomiting) Qty: 10 0RF lorazepam 0.5 mg tablet 0.5 mg PO BID PRN (Reason: nausea and vomiting) Qty: 14 0RF
--- NOTE | 2021-09-06 09:24 | DI.MRI.S_ITS ---
PROCEDURE: MR ABDOMEN WO CON INDICATIONS: abdominal pain TECHNIQUE: Coronal HASTE through the abdomen, axial 2-D FLASH in- and [id number], and breath-hold T2 FSE with fat saturation through the biliary system and pancreas. Oblique coronal and axial thin-slice HASTE, radial thick-slab HASTE centered on the extrahepatic bile ducts. Intravenous secretin: Not requested. COMPARISON: [facility], CT, CT ABDOMEN PELVIS W CON, 09/05/2021, 13:05. [facility], US, US ABDOMEN LIMITED, 09/06/2021, 3:42. FINDINGS: Image quality: Excellent. Pancreas and biliary system: Status post cholecystectomy. Mild prominence of the central intrahepatic bile ducts and the common bile duct is most likely secondary to the prior cholecystectomy. The common hepatic duct measures approximately 9 mm in diameter. The common bile duct measures 7 mm in diameter at the level of the pancreatic head. No intraductal filling defect is seen. A T2-hyperintense cyst is seen in the head of the pancreas that measures 1.1 x 1.1 x 0.8 cm (image 24 of series 5 and image 12 of series 3). There is no pancreatic ductal dilatation. No solid pancreatic mass is seen. Additional 1.1 x 0.5 by 0.6 cm cyst is seen in the pancreatic tail (21/5, 13/3). Other solid organs: Markedly decreased signal on out of phase T1-weighted images throughout the liver is consistent with severe fatty infiltration. The liver is mildly enlarged, measuring 20.6 cm in craniocaudal dimension. Spleen is normal in size. No adrenal nodules. Both kidneys are normal in size, without hydronephrosis. Nodes and vessels: No retroperitoneal or mesenteric adenopathy by size criteria. Aorta and inferior vena cava are normal in size. Bowel and peritoneum: Unenhanced bowel loops are normal in caliber. No free fluid. Lung bases: No basal pleural effusions. Heart size is normal. Bones and soft tissues: No ventral hernias. Bone marrow is of normal overall signal. Left-sided rib fracture demonstrated on recent CT is not well visualized with MRI. IMPRESSION: 1. Status post cholecystectomy with associated prominence of the extrahepatic and central intrahepatic biliary ducts. No filling defect is seen within the biliary collecting system. 2. Hepatomegaly and diffuse severe hepatic steatosis. 3. 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 No dilation of the main pancreatic duct. Recommend annual contrast enhanced pancreas protocol MRI or CT to demonstrate stability. Dictated by: Allen Meyer M.D. on 09/06/2021 at 10:41 Approved by: Allen Meyer M.D. on 09/06/2021 at 10:52
[2021-09-06 10:18] LABS: Add Manual Diff / Slide Review NO; Basophils Absolute Auto 0 /uL (0-100); Basophils Percent Auto 0.1 % (0-2); Eosinophils Absolute Auto 0 /uL (0-450); Eosinophils Percent Auto 0.2 % (2-4); Hematocrit 34.3 % (41-53); Lymphocytes Absolute Auto 600 /uL (1100-4500); Lymphocytes Percent Auto 13.1 % (25-40); Mean Corpuscular Hemoglobin 34.2 PG (26-34); Mean Corpuscular Volume 97.7 fL (80-100); Monocytes Absolute Auto 400 /uL (0-900); Monocytes Percent Auto 8.3 % (3-14); Neutrophils Absolute Auto 3400 /uL (1500-7000); Neutrophils Percent Auto 78.3 % (50-75); Platelet Count 72 X10^3/uL (150-400); Red Blood Cell Count 3.51 X10^6/uL (4.5-5.9); Red Cell Distribution Width 13.9 % (11.6-14.8); White Blood Cell Count 4.4 X10^3/uL (4.5-11.0)
[2021-09-06] MEDS: diphenhydrAMINE 50 MG/ML VIAL 25 MG IV (10:21)
[2021-09-06] MEDS: SODIUM CHLORIDE 0.9% 1,000 ML 1000 ML IV (10:21)
[2021-09-06] MEDS: METOCLOPRAMIDE 10 MG/2 ML INJ IV (10:21)
[2021-09-06] MEDS: HYDROMORPHONE 1 MG INJ IV (10:21)
[2021-09-06 10:34] LABS: Alanine Aminotransferase 36 IU/L (<50); Albumin 3.5 g/dL (3.5-5.0); Albumin Globulin Ratio 1.2 (1.0-2.8); Alkaline Phosphatase 83 U/L (38-126); Aspartate Aminotransferase 53 IU/L (17-59); BUN Creatinine Ratio 19.7 (6-22); Bilirubin Total 0.8 mg/dL (0.2-1.3); Blood Urea Nitrogen 12 mg/dL (9-20); Calcium 8.7 mg/dL (8.4-10.2); Carbon Dioxide 27 mmol/L (22-32); Chloride 103 mmol/L (98-107); Estimated Glomerular Filt Rate > 60.0 mL/min (>60); Ethanol (ETOH) < 10 mg/dL; Globulin 2.9 g/dL (1.7-4.1); Glucose 113 mg/dL (80-110); HEMOLYSIS < 15 (0-50); Lipase 227 U/L (23-300); Potassium 3.4 mmol/L (3.4-5.1); Sodium 136 mmol/L (137-145); Total Protein 6.4 g/dL (6.3-8.2)
== END 2021-09-06 13:06 | disposition home or self-care (01) ==
PROVIDERS: Emergency Provider Emergency Medicine
DX: K86.1 Other chronic pancreatitis (principal); Z88.2 Allergy status to sulfonamides; R10.11 Right upper quadrant pain; R11.2 Nausea with vomiting, unspecified
CPT/HCPCS: 36415; 74181; 76705; 80053; 80320; 81003; 81015; 83605; 83690; 85025; 87040; 87077; 87086; 87186; 96361; 96365; 96374; 96375; 99284; J0696; J1170; J1200; J1885; J2405; J2765

== ENCOUNTER 2021-09-17 10:45 | Emergency (ER) | payer OTHER, MEDICAID, SELFPAY ==
[2021-09-17] VITALS (14 sets, daily range): BP systolic 131–168; BP diastolic 70–94; PULSE 66–77; RESP 18–37; TEMP 36.8; O2SAT 97–100; BMI 21.9
[2021-09-17 11:31] LABS: Add Manual Diff / Slide Review NO; Basophils Absolute Auto 0 /uL (0-100); Basophils Percent Auto 0.6 % (0-2); Eosinophils Absolute Auto 0 /uL (0-450); Hemoglobin 14.1 g/dL (13.5-17.5); Lymphocytes Absolute Auto 400 /uL (1100-4500); Lymphocytes Percent Auto 8.3 % (25-40); Mean Corpuscular HGB Conc 35.2 % (30-36); Mean Corpuscular Hemoglobin 34.3 PG (26-34); Mean Corpuscular Volume 97.5 fL (80-100); Monocytes Absolute Auto 400 /uL (0-900); Monocytes Percent Auto 7.6 % (3-14); Neutrophils Absolute Auto 4100 /uL (1500-7000); Neutrophils Percent Auto 83.5 % (50-75); Platelet Count 242 X10^3/uL (150-400); Red Cell Distribution Width 13.8 % (11.6-14.8); White Blood Cell Count 4.9 X10^3/uL (4.5-11.0)
[2021-09-17] MEDS: ONDANSETRON 4 MG/2 ML INJ IV (11:35)
[2021-09-17 11:40] LABS: INR 1.2 (0.9-1.3); Prothrombin Time 14.1 SECONDS (10.1-12.7)
[2021-09-17 11:43] LABS: PTT Partial Thromboplastin Tim 26 SECONDS (26.4-36.2)
[2021-09-17 11:44] LABS: Albumin 4.5 g/dL (3.5-5.0); Albumin Globulin Ratio 1.3 (1.0-2.8); Alkaline Phosphatase 167 U/L (38-126); Aspartate Aminotransferase 49 IU/L (17-59); BUN Creatinine Ratio 19.6 (6-22); Bilirubin Total 1.3 mg/dL (0.2-1.3); Blood Urea Nitrogen 11 mg/dL (9-20); Calcium 9.3 mg/dL (8.4-10.2); Carbon Dioxide 24 mmol/L (22-32); Chloride 101 mmol/L (98-107); Estimated Glomerular Filt Rate > 60.0 mL/min (>60); Globulin 3.6 g/dL (1.7-4.1); Glucose 149 mg/dL (80-110); HEMOLYSIS < 15 (0-50); Lipase 72 U/L (23-300); Potassium 3.1 mmol/L (3.4-5.1); Sodium 139 mmol/L (137-145); Total Protein 8.1 g/dL (6.3-8.2)
[2021-09-17 11:51] LABS: Alanine Aminotransferase 40 IU/L (<50)
--- NOTE | 2021-09-17 12:10 | PC.NURSE ---
Pt denies nausea/vomiting since zofran. Pt provided with mouth swab per request.
--- NOTE | 2021-09-17 12:27 | DI.CT.S_ITS ---
PROCEDURE: CT ABDOMEN PELVIS W CON INDICATIONS: epigastric, RUQ pain, hx pancreatitis TECHNIQUE: After the administration of oral and IV contrast, axial sections were acquired from the lung bases to the pubic symphysis. Coronal and sagittal reformats were performed. For radiation dose reduction, the following was used: automated exposure control, adjustment of mA and/or kV according to patient size. COMPARISON: [facility], MR, MR ABDOMEN WO CON, 09/06/2021, 9:36. [facility], CT, CT ABDOMEN PELVIS W CON, 09/05/2021, 13:05. FINDINGS: Image quality: Excellent. Lung bases: No pleural effusion. Heart: No significant findings. Suspect thickening of the distal esophagus. ABDOMEN: Liver: Hepatic steatosis. No focal lesion seen. Gallbladder: Absent. Biliary ducts: CBD is mildly dilated measuring 1.2 cm, unchanged and tapers distally. No significant intrahepatic biliary ductal dilatation. Pancreas: Cyst in the head of the pancreas measuring 1.1 cm, (09/17), unchanged. No peripancreatic fluid collection. Spleen: Unremarkable. Adrenal Glands: Unremarkable. Kidneys and Ureters: No hydronephrosis. Stomach and Bowel: Stomach, small bowel loops, and colon are unremarkable. A few colonic diverticuli. Peritoneum: No abnormal intraperitoneal fluid. No free air. Ventral Wall: No hernia. Abdominal Nodes: No retroperitoneal or mesenteric adenopathy by size criteria. Vessels: Aorta and inferior vena cava are normal in size. Calcified plaque. PELVIS: Pelvic Organs: Prostatomegaly. Bladder: Unremarkable. Pelvic Nodes: No enlarged lymph nodes. Miscellaneous: No inguinal hernias are seen. Bones: No suspicious lesion. IMPRESSION: 1. No CT evidence of pancreatitis. 2. Cyst in the head of the pancreas measuring 1.1 cm. Most likely IPMN. Please see recent MRCP. 3. Similar prominent extrahepatic bile duct. 4. Suspect thickening of the distal esophagus. This could be further evaluated with endoscopy if clinically indicated. 5. Cholecystectomy. Dictated by: Mat Carmen M.D. on 09/17/2021 at 13:20 Approved by: Mat Carmen M.D. on 09/17/2021 at 13:31
--- NOTE | 2021-09-17 12:36 | PC.NURSE ---
Pt educated on order for urine specimen, pt states he has not received any IVs and declines attempt for urine specimen at this time.
[2021-09-17] MEDS: SODIUM CHLORIDE 0.9% 1,000 ML 1000 ML IV (12:42)
[2021-09-17] MEDS: MORPHINE 4 MG/ML INJ IV (12:42)
[2021-09-17 13:32] LABS: Lactate (Lactic Acid) 4.7 mmol/L (0.7-2.1)
[2021-09-17 14:07] LABS: RBC Urine 30-100/HPF (0-5/HPF); WBC Urine 5-10/HPF (0-5/HPF)
[2021-09-17 14:08] LABS: Bacteria Urine Many (>30); Culture Indicated Urine Specimen Cultured; Squamous Epithelial Cell Urine None Seen (0-5/HPF)
[2021-09-17 14:47] LABS: Lactate (Lactic Acid) 1.8 mmol/L (0.7-2.1)
[2021-09-17 15:10] LABS: Reflexed Lactate in 2 Hours Y
--- NOTE | 2021-09-17 20:37 | ED.ABDPAIN ---
HPI - Abdominal Pain <Anuel Stone PA-C - Last Filed: 09/17/21 20:44> General Chief Complaint: Abdominal Pain Stated Complaint: Pancreatitis episode Time Seen by Provider: 09/17/21 12:01 Source: patient Mode of arrival: Wheelchair History of Present Illness HPI narrative: 61-year-old male with past medical history pancreatitis, hepatic steatosis, history of alcohol abuse presents to the ED with 2 days of burning epigastric pain, nausea, vomiting. Patient denies fever, endorses chills. Patient denies chest pain, shortness of breath, flank pain, dysuria, urinary urgency, lightheadedness, dizziness, syncope. Patient has been seen in this ED several times for similar symptoms, has recent MRI findings of pancreatic lesions that are likely IPMNs, for which the patient has an appointment with a GI specialist for tomorrow. Related Data Home Medications Medication Instructions Recorded Confirmed Citalopram Hydrobromide 20 mg PO Q DAY #0 09/09/07 (Citalopram HBr) Previous Rx's Medication Instructions Recorded lorazepam 0.5 mg tablet 0.5 mg PO BID PRN #14 tab 09/05/21 ondansetron 4 mg disintegrating 4 mg PO TID-QID PRN #10 tab 09/05/21 tablet metoclopramide HCl 10 mg tablet 10 mg PO Q6H #60 tab 09/07/21 (Reglan) cefpodoxime 200 mg tablet 200 mg PO BID 10 Days #20 tab 09/17/21 ondansetron 4 mg disintegrating 4 mg PO Q8H PRN #10 tab 09/17/21 tablet Allergies Allergy/AdvReac Type Severity Reaction Status Date / Time Sulfa (Sulfonamide Allergy Verified 09/17/21 11:34 Antibiotics) Review of Systems <Anuel Stone PA-C - Last Filed: 09/17/21 20:44> Review of Systems ROS Unobtainable: All systems reviewed & are unremarkable except as noted in HPI and below Constitutional Constitutional: Reports chills, Denies fatigue, Denies fever(s), Denies frequent falls, Denies lethargy and Denies weakness Eyes Eyes: Denies change in vision, Denies eye discharge, Denies irritation and Denies loss of vision ENT Ears, Nose, Mouth, and Throat: Denies change in voice, Denies dizziness, Denies neck pain, Denies sore throat and Denies throat swelling Cardiovascular Cardiovascular: Denies chest pain, Denies irregular heart rhythm, Denies lightheadedness, Denies palpitations, Denies dyspnea, Denies dyspnea on exertion and Denies orthopnea Respiratory Respiratory: Denies cough, Denies dyspnea, Denies dyspnea on exertion and Denies wheezing Gastrointestinal Gastrointestinal: Reports abdominal pain, Denies change in bowel habits, Denies diarrhea, Reports nausea and Reports vomiting Genitourinary Genitourinary: Denies hematuria, Denies flank pain, Denies urinary incontinence and Denies urinary urgency Musculoskeletal Musculoskeletal: Denies back pain, Denies muscle weakness, Denies neck pain, Denies numbness and Denies tingling Integumentary/Breasts Skin/Breast: Denies pruritus, Denies erythema, Denies rash and Denies wounds Neurologic Neurologic: Denies behavioral changes, Denies confusion, Denies dizziness, Denies frequent falls, Denies loss of vision, Denies numbness, Denies tingling and Denies weakness Psychiatric Psychiatric: Denies anxiety, Denies behavioral changes, Denies confusion, Denies depression, Denies homicidal ideation and Denies suicidal ideation Endocrine Endocrine: Denies fatigue, Denies flushing and Denies palpitations Hematologic/Lymphatic Hematologic/Lymphatic: Denies easy bruising Allergic/Immunologic Allergic/Immunologic: Denies urticaria, Denies throat swelling and Denies wheezing Patient History <Anuel Stone PA-C - Last Filed: 09/17/21 20:44> Medical History Fatty liver due to alcoholism History of alcohol abuse Pancreatitis Surgical History S/P cholecystectomy Social History Smoking Status: Never smoker Smoking Status: Never smoker alcohol intake frequency: other Substance Use Type: does not use Exam <Anuel Stone PA-C - Last Filed: 09/17/21 20:44> Initial Vital Signs Initial Vital Signs: Vital Signs Temperature 98.3 F 09/17/21 11:26 Pulse Rate 73 09/17/21 11:26 Respiratory Rate 18 09/17/21 11:26 Blood Pressure 162/88 H 09/17/21 11:26 Pulse Oximetry 99 09/17/21 11:26 Const General: cooperative, healthy appearing and comfortable HENWV Head: normal to inspection Eyes General: appearance normal, both eyes and all related structures Resp Effort & Inspection: normal respiratory effort Auscultation: clear to auscultation bilaterally Cardio Rate: regular rate Rhythm: regular rhythm GI Other: Abdomen is soft, nondistended, tender to palpation in the epigastric region. General: No CVA tenderness Skin General: no rashes or lesions noted Neuro General: patient alert, patient awake and patient oriented x3 Psych Appearance: grossly normal Mental Status: mental status grossly normal <Michelle Alfaro DO - Last Filed: 09/21/21 19:10> Initial Vital Signs Initial Vital Signs: Vital Signs Temperature 98.3 F 09/17/21 11:26 Pulse Rate 73 09/17/21 11:26 Respiratory Rate 18 09/17/21 11:26 Blood Pressure 162/88 H 09/17/21 11:26 Pulse Oximetry 99 09/17/21 11:26 Course <Anuel Stone PA-C - Last Filed: 09/17/21 20:44> Orders Ordered: Discontinued Medications Sodium Chloride (Normal Saline 0.9%) 1,000 mls @ 1,000 mls/hr IV BOLUS ONE Stop: 09/17/21 13:31 Last Infusion: 09/17/21 14:30 Dose: 0 mls/hr Documented by: Admin: 09/17/21 12:42 Dose: 1,000 mls/hr Documented by: GISSEL Morphine Sulfate (Morphine 4 Mg/Ml Inj) 4 mg IV NOW ONE Stop: 09/17/21 12:32 Last Admin: 09/17/21 12:42 Dose: 4 mg Documented by: GISSEL Ondansetron HCl (Ondansetron 4 Mg/2 Ml Inj) 4 mg IV NOW ONE Stop: 09/17/21 11:19 Last Admin: 09/17/21 11:35 Dose: 4 mg Documented by: GISSEL Vital Signs Vital signs: Vital Signs - 8 hr 09/17/21 13:00 09/17/21 13:01 09/17/21 13:30 Pulse Rate 76 76 67 Respiratory Rate 37 H 30 H 24 Blood Pressure 168/94 H 150/81 H Pulse Oximetry 99 100 99 09/17/21 14:00 09/17/21 14:30 09/17/21 15:15 Pulse Rate 66 74 74 Respiratory Rate 20 33 H Blood Pressure 131/77 137/91 H Pulse Oximetry 97 100 99 09/17/21 15:16 09/17/21 15:20 Pulse Rate 74 74 Respiratory Rate 18 Blood Pressure 154/85 H 154/85 H Pulse Oximetry 99 100 <Michelle Alfaro DO - Last Filed: 09/21/21 19:10> Orders Ordered: Discontinued Medications Sodium Chloride (Normal Saline 0.9%) 1,000 mls @ 1,000 mls/hr IV BOLUS ONE Stop: 09/17/21 13:31 Last Infusion: 09/17/21 14:30 Dose: 0 mls/hr Documented by: Admin: 09/17/21 12:42 Dose: 1,000 mls/hr Documented by: GISSEL Morphine Sulfate (Morphine 4 Mg/Ml Inj) 4 mg IV NOW ONE Stop: 09/17/21 12:32 Last Admin: 09/17/21 12:42 Dose: 4 mg Documented by: GISSEL Ondansetron HCl (Ondansetron 4 Mg/2 Ml Inj) 4 mg IV NOW ONE Stop: 09/17/21 11:19 Last Admin: 09/17/21 11:35 Dose: 4 mg Documented by: GISSEL Vital Signs Vital signs: Vital Signs - 8 hr 09/17/21 13:00 09/17/21 13:01 09/17/21 13:30 Pulse Rate 76 76 67 Respiratory Rate 37 H 30 H 24 Blood Pressure 168/94 H 150/81 H Pulse Oximetry 99 100 99 09/17/21 14:00 09/17/21 14:30 09/17/21 15:15 Pulse Rate 66 74 74 Respiratory Rate 20 33 H Blood Pressure 131/77 137/91 H Pulse Oximetry 97 100 99 09/17/21 15:16 09/17/21 15:20 Pulse Rate 74 74 Respiratory Rate 18 Blood Pressure 154/85 H 154/85 H Pulse Oximetry 99 100 MDM - Abdominal Pain <Anuel Stone PA-C - Last Filed: 09/17/21 20:44> Medical Records Attestation: I reviewed the patient's medical records. Lab Data Attestation: I reviewed the patient's lab results. Lab results narrative: Labs within normal limits. UA positive for UTI. Result diagrams: 09/17/21 11:20 09/17/21 11:20 Labs: Lab Results 09/17/21 09/17/21 09/17/21 Range/Units 11:20 11:20 11:20 WBC 4.9 (4.5-11.0) X10^3/uL RBC 4.10 L (4.5-5.9) X10^6/uL Hgb 14.1 (13.5-17.5) g/dL Hct 40.0 L (41-53) % MCV 97.5 (80-100) fL MCH 34.3 H (26-34) PG MCHC 35.2 (30-36) % RDW 13.8 (11.6-14.8) % Plt Count 242 (150-400) X10^3/uL Neut % (Auto) 83.5 H (50-75) % Lymph % (Auto) 8.3 L (25-40) % [place] % (Auto) 7.6 (3-14) % Eos % (Auto) 0.0 L (2-4) % Baso % (Auto) 0.6 (0-2) % Neut # (Auto) 4100 (1248-5760) /uL Lymph # (Auto) 400 L (4291-8389) /uL [place] # (Auto) 400 (0-900) /uL Eos # (Auto) 0 (0-450) /uL Baso # (Auto) 0 (0-100) /uL PT 14.1 H (10.1-12.7) SECONDS INR 1.2 (0.9-1.3) APTT 26 L (26.4-36.2) SECONDS Sodium 139 (137-145) mmol/L Potassium 3.1 L (3.4-5.1) mmol/L Chloride 101 (98-107) mmol/L Carbon Dioxide 24 (22-32) mmol/L BUN 11 (9-20) mg/dL Creatinine 0.56 L (0.66-1.25) mg/dL Estimated GFR > 60.0 (>60) mL/min BUN/Creatinine Ratio 19.6 (6-22) Glucose 149 H (80-110) mg/dL Lactate (0.7-2.1) mmol/L Calcium 9.3 (8.4-10.2) mg/dL Total Bilirubin 1.3 (0.2-1.3) mg/dL AST 49 (17-59) IU/L ALT 40 (<50) IU/L Alkaline Phosphatase 167 H (38-126) U/L Total Protein 8.1 (6.3-8.2) g/dL Albumin 4.5 (3.5-5.0) g/dL Globulin 3.6 (1.7-4.1) g/dL Albumin/Globulin Ratio 1.3 (1.0-2.8) Lipase 72 (23-300) U/L Urine RBC (0-5/HPF) Urine WBC (0-5/HPF) Ur Squamous Epith Cells (0-5/HPF) Urine Bacteria (None) Ur Culture Indicated? 09/17/21 09/17/21 09/17/21 Range/Units 11:20 13:33 14:13 WBC (4.5-11.0) X10^3/uL RBC (4.5-5.9) X10^6/uL Hgb (13.5-17.5) g/dL Hct (41-53) % MCV (80-100) fL MCH (26-34) PG MCHC (30-36) % RDW (11.6-14.8) % Plt Count (150-400) X10^3/uL Neut % (Auto) (50-75) % Lymph % (Auto) (25-40) % [place] % (Auto) (3-14) % Eos % (Auto) (2-4) % Baso % (Auto) (0-2) % Neut # (Auto) (7556-0462) /uL Lymph # (Auto) (1948-7306) /uL [place] # (Auto) (0-900) /uL Eos # (Auto) (0-450) /uL Baso # (Auto) (0-100) /uL PT (10.1-12.7) SECONDS INR (0.9-1.3) APTT (26.4-36.2) SECONDS Sodium (137-145) mmol/L Potassium (3.4-5.1) mmol/L Chloride (98-107) mmol/L Carbon Dioxide (22-32) mmol/L BUN (9-20) mg/dL Creatinine (0.66-1.25) mg/dL Estimated GFR (>60) mL/min BUN/Creatinine Ratio (6-22) Glucose (80-110) mg/dL Lactate 4.7 H* 1.8 (0.7-2.1) mmol/L Calcium (8.4-10.2) mg/dL Total Bilirubin (0.2-1.3) mg/dL AST (17-59) IU/L ALT (<50) IU/L Alkaline Phosphatase (38-126) U/L Total Protein (6.3-8.2) g/dL Albumin (3.5-5.0) g/dL Globulin (1.7-4.1) g/dL Albumin/Globulin Ratio (1.0-2.8) Lipase (23-300) U/L Urine RBC 30-100/hpf H (0-5/HPF) Urine WBC 5-10/hpf H (0-5/HPF) Ur Squamous Epith Cells None seen (0-5/HPF) Urine Bacteria Many (>30) H (None) Ur Culture Indicated? Specimen cultured Point of care testing: Urine Dip Bedside Urine Glucose Negative Bedside Urine Bilirubin - Negative Bedside Urine Ketone +/- 5 Urine Specific [place] 1.005 Bedside Urine Occult Blood +++ Bedside Urine pH 8.5 Bedside Urine Protein ++ 100 Bedside Urine Urobilinogen - Negative Bedside Urine Nitrite - Negative Bedside Urine Leukocytes - Negative Esterase Imaging Data CT scan - abdomen/pelvis: Radiologist's Impression: PROCEDURE:? CT ABDOMEN PELVIS W CON ? INDICATIONS:? epigastric, RUQ pain, hx pancreatitis ? TECHNIQUE:? After the administration of oral and IV contrast, axial sections were acquired from the lung bases to the pubic symphysis.? Coronal and sagittal reformats were performed.? For radiation dose reduction, the following was used:? automated exposure control, adjustment of mA and/or kV according to patient size. ? COMPARISON:? [facility], MR, MR ABDOMEN WO CON, 09/06/2021, 9:36.? [facility], CT, CT ABDOMEN PELVIS W CON, 09/05/2021, 13:05. ? FINDINGS:? Image quality:? Excellent.? ? Lung bases:? No pleural effusion.? ? Heart:? No significant findings. ? Suspect thickening of the distal esophagus. ? ABDOMEN: Liver:? Hepatic steatosis.? No focal lesion seen. Gallbladder:? Absent.? ? Biliary ducts:? CBD is mildly dilated measuring 1.2 cm, unchanged and tapers distally.? No significant intrahepatic biliary ductal dilatation. Pancreas:? Cyst in the head of the pancreas measuring 1.1 cm, (09/17), unchanged.? No peripancreatic fluid collection. Spleen:? Unremarkable.? ? Adrenal Glands:? Unremarkable.? ? Kidneys and Ureters:? No hydronephrosis. ? Stomach and Bowel:? Stomach, small bowel loops, and colon are unremarkable.? A few colonic diverticuli. Peritoneum:? No abnormal intraperitoneal fluid.? No free air.? ? Ventral Wall: ? No hernia.? Abdominal Nodes:? No retroperitoneal or mesenteric adenopathy by size criteria.? Vessels:? Aorta and inferior vena cava are normal in size.? Calcified plaque. ? PELVIS: Pelvic Organs:? Prostatomegaly.? ? Bladder:? Unremarkable.? ? Pelvic Nodes: No enlarged lymph nodes.? Miscellaneous: No inguinal hernias are seen. ? ? ? Bones:? No suspicious lesion. ? ? IMPRESSION:? 1. No CT evidence of pancreatitis. ? 2. Cyst in the head of the pancreas measuring 1.1 cm.? Most likely IPMN.? Please see recent MRCP. ? 3. Similar prominent extrahepatic bile duct. ? 4. Suspect thickening of the distal esophagus.? This could be further evaluated with endoscopy if clinically indicated. ? 5. Cholecystectomy.? ? Dictated by: Mat Carmen M.D. on 09/17/2021 at 13:20 ? ? Approved by: Mat Carmen M.D. on 09/17/2021 at 13:31 ? [facility] Narrative Medical decision making narrative: 61-year-old male with past medical history pancreatitis, hepatic steatosis, history of alcohol abuse presents to the ED with 2 days of burning epigastric pain, nausea, vomiting. Concern for pancreatitis versus GERD versus gastritis versus dehydration versus bowel obstruction versus UTI Will order labs, lipase, lactate, CT abdomen pelvis, UA. Symptoms improved with Zofran, IV fluids, morphine. Labs within normal limits. CT unchanged with no new findings. UA positive for UTI. Will treat with antibiotics. ED return precautions discussed. Patient to keep his appointment with GI tomorrow. Patient verbalized understanding. Discharge patient. <Michelle Alfaro, DO - Last Filed: 09/21/21 19:10> Lab Data Labs: Lab Results 09/17/21 09/17/21 09/17/21 Range/Units 11:20 11:20 11:20 WBC 4.9 (4.5-11.0) X10^3/uL RBC 4.10 L (4.5-5.9) X10^6/uL Hgb 14.1 (13.5-17.5) g/dL Hct 40.0 L (41-53) % MCV 97.5 (80-100) fL MCH 34.3 H (26-34) PG MCHC 35.2 (30-36) % RDW 13.8 (11.6-14.8) % Plt Count 242 (150-400) X10^3/uL Neut % (Auto) 83.5 H (50-75) % Lymph % (Auto) 8.3 L (25-40) % [place] % (Auto) 7.6 (3-14) % Eos % (Auto) 0.0 L (2-4) % Baso % (Auto) 0.6 (0-2) % Neut # (Auto) 4100 (3401-6138) /uL Lymph # (Auto) 400 L (6415-4213) /uL [place] # (Auto) 400 (0-900) /uL Eos # (Auto) 0 (0-450) /uL Baso # (Auto) 0 (0-100) /uL PT 14.1 H (10.1-12.7) SECONDS INR 1.2 (0.9-1.3) APTT 26 L (26.4-36.2) SECONDS Sodium 139 (137-145) mmol/L Potassium 3.1 L (3.4-5.1) mmol/L Chloride 101 (98-107) mmol/L Carbon Dioxide 24 (22-32) mmol/L BUN 11 (9-20) mg/dL Creatinine 0.56 L (0.66-1.25) mg/dL Estimated GFR > 60.0 (>60) mL/min BUN/Creatinine Ratio 19.6 (6-22) Glucose 149 H (80-110) mg/dL Lactate (0.7-2.1) mmol/L Calcium 9.3 (8.4-10.2) mg/dL Total Bilirubin 1.3 (0.2-1.3) mg/dL AST 49 (17-59) IU/L ALT 40 (<50) IU/L Alkaline Phosphatase 167 H (38-126) U/L Total Protein 8.1 (6.3-8.2) g/dL Albumin 4.5 (3.5-5.0) g/dL Globulin 3.6 (1.7-4.1) g/dL Albumin/Globulin Ratio 1.3 (1.0-2.8) Lipase 72 (23-300) U/L Urine RBC (0-5/HPF) Urine WBC (0-5/HPF) Ur Squamous Epith Cells (0-5/HPF) Urine Bacteria (None) Ur Culture Indicated? 09/17/21 09/17/21 09/17/21 Range/Units 11:20 13:33 14:13 WBC (4.5-11.0) X10^3/uL RBC (4.5-5.9) X10^6/uL Hgb (13.5-17.5) g/dL Hct (41-53) % MCV (80-100) fL MCH (26-34) PG MCHC (30-36) % RDW (11.6-14.8) % Plt Count (150-400) X10^3/uL Neut % (Auto) (50-75) % Lymph % (Auto) (25-40) % [place] % (Auto) (3-14) % Eos % (Auto) (2-4) % Baso % (Auto) (0-2) % Neut # (Auto) (4240-3119) /uL Lymph # (Auto) (3550-8216) /uL [place] # (Auto) (0-900) /uL Eos # (Auto) (0-450) /uL Baso # (Auto) (0-100) /uL PT (10.1-12.7) SECONDS INR (0.9-1.3) APTT (26.4-36.2) SECONDS Sodium (137-145) mmol/L Potassium (3.4-5.1) mmol/L Chloride (98-107) mmol/L Carbon Dioxide (22-32) mmol/L BUN (9-20) mg/dL Creatinine (0.66-1.25) mg/dL Estimated GFR (>60) mL/min BUN/Creatinine Ratio (6-22) Glucose (80-110) mg/dL Lactate 4.7 H* 1.8 (0.7-2.1) mmol/L Calcium (8.4-10.2) mg/dL Total Bilirubin (0.2-1.3) mg/dL AST (17-59) IU/L ALT (<50) IU/L Alkaline Phosphatase (38-126) U/L Total Protein (6.3-8.2) g/dL Albumin (3.5-5.0) g/dL Globulin (1.7-4.1) g/dL Albumin/Globulin Ratio (1.0-2.8) Lipase (23-300) U/L Urine RBC 30-100/hpf H (0-5/HPF) Urine WBC 5-10/hpf H (0-5/HPF) Ur Squamous Epith Cells None seen (0-5/HPF) Urine Bacteria Many (>30) H (None) Ur Culture Indicated? Specimen cultured Point of care testing: Urine Dip Bedside Urine Glucose Negative Bedside Urine Bilirubin - Negative Bedside Urine Ketone +/- 5 Urine Specific [place] 1.005 Bedside Urine Occult Blood +++ Bedside Urine pH 8.5 Bedside Urine Protein ++ 100 Bedside Urine Urobilinogen - Negative Bedside Urine Nitrite - Negative Bedside Urine Leukocytes - Negative Esterase Discharge Plan Departure Patient Disposition: Home Clinical Impression: Acute UTI Instructions: DI for Urinary Tract Infection (UTI) Activity Restrictions/Additional Instructions: You were evaluated in the ED today for nausea and vomiting, abdominal pain. Your labs, CT abdomen pelvis did not show any acute findings or changes from prior imaging. Your urine was positive for a UTI. You have been prescribed an antibiotic. Please complete the full course of the antibiotic. Please keep your appointment with the GI specialist that you have for tomorrow. Return to the ED if you have worsening symptoms, uncontrollable nausea, vomiting, fever, chills. Prescriptions: New cefpodoxime 200 mg tablet 200 mg PO BID 10 Days Qty: 20 0RF Rx Instructions: must administer with a meal/food ondansetron 4 mg tablet,disintegrating 4 mg PO Q8H PRN (Reason: nausea and vomiting) Qty: 10 0RF No Action Citalopram Hydrobromide (Citalopram HBr) 20 mg PO Q DAY Qty: 0 0RF ondansetron 4 mg tablet,disintegrating 4 mg PO TID-QID PRN (Reason: nausea and vomiting) Qty: 10 0RF lorazepam 0.5 mg tablet 0.5 mg PO BID PRN (Reason: nausea and vomiting) Qty: 14 0RF metoclopramide HCl [Reglan] 10 mg tablet 10 mg PO Q6H Qty: 60 0RF <Michelle Alfaro, DO - Last Filed: 09/21/21 19:10> Cosign ED Attending Cosethanature Attestation: I was immediately available in the department for consultation. Documentation has been reviewed.
== END 2021-09-17 15:21 | disposition home or self-care (01) ==
PROVIDERS: Emergency Medicine; Emergency Provider Student in an Organized Health Care Education/Training Program
DX: N39.0 Urinary tract infection, site not specified (principal); R10.13 Epigastric pain; R11.2 Nausea with vomiting, unspecified; R03.0 Elevated blood-pressure reading, without diagnosis of hypertension
CPT/HCPCS: 36415; 74177; 80053; 81003; 81015; 83605; 83690; 85025; 85610; 85730; 87077; 87086; 87186; 93005; 96361; 96374; 96375; 99284; J2270; J2405

== ENCOUNTER 2021-09-18 10:54 | Emergency (ER) | payer OTHER, MEDICAID, SELFPAY ==
[2021-09-18 11:05] VITALS: BP 128/74; PULSE 75; RESP 28; TEMP 36.7; O2SAT 100; BMI 22.5
--- NOTE | 2021-09-18 12:15 | ED.NAVMDI ---
HPI - Nausea/Vomiting/Diarrhea <Anuel Stone PA-C - Last Filed: 09/18/21 15:11> General Chief complaint: Nausea/Vomiting/Diarrhea Stated complaint: Pancreatitis episode Time Seen by Provider: 09/18/21 11:36 Source: patient Mode of arrival: Wheelchair History of Present Illness HPI Narrative: 61-year-old male with past medical history pancreatitis, hepatic steatosis, history of alcohol abuse presents to the ED with 1 day of burning epigastric pain, nausea, vomiting, chills. Patient denies fever, chest pain, shortness of breath, diarrhea, constipation, lightheadedness, dizziness, syncope. Patient was seen in the ED just yesterday with the same complaints, workup showed a UTI, a CT abdomen pelvis that was unchanged from prior imaging. Patient was given a prescription for cefpodoxime and Zofran, which he has not yet filled. He has an appointment with his GI for follow-up tomorrow. Patient denies recent alcohol use. Patient denies history of alcohol withdrawal. Related Data Home Medications Medication Instructions Recorded Confirmed Citalopram Hydrobromide 20 mg PO Q DAY #0 09/09/07 (Citalopram HBr) Previous Rx's Medication Instructions Recorded lorazepam 0.5 mg tablet 0.5 mg PO BID PRN #14 tab 09/05/21 ondansetron 4 mg disintegrating 4 mg PO TID-QID PRN #10 tab 09/05/21 tablet metoclopramide HCl 10 mg tablet 10 mg PO Q6H #60 tab 09/07/21 (Reglan) cefpodoxime 200 mg tablet 200 mg PO BID 10 Days #20 tab 09/17/21 ondansetron 4 mg disintegrating 4 mg PO Q8H PRN #10 tab 09/17/21 tablet Allergies Allergy/AdvReac Type Severity Reaction Status Date / Time Sulfa (Sulfonamide Allergy Verified 09/17/21 11:34 Antibiotics) Review of Systems <Anuel Stone PA-C - Last Filed: 09/18/21 15:11> Review of Systems ROS Unobtainable: All systems reviewed & are unremarkable except as noted in HPI and below Constitutional Constitutional: Reports chills, Denies fatigue, Denies fever(s), Denies frequent falls, Denies lethargy and Denies weakness Eyes Eyes: Denies change in vision, Denies eye discharge, Denies irritation and Denies loss of vision ENT Ears, Nose, Mouth, and Throat: Denies change in voice, Denies dizziness, Denies neck pain, Denies sore throat and Denies throat swelling Cardiovascular Cardiovascular: Denies chest pain, Denies irregular heart rhythm, Denies lightheadedness, Denies palpitations, Denies dyspnea, Denies dyspnea on exertion and Denies orthopnea Respiratory Respiratory: Denies cough, Denies dyspnea, Denies dyspnea on exertion and Denies wheezing Gastrointestinal Gastrointestinal: Reports abdominal pain, Denies change in bowel habits, Denies diarrhea, Reports nausea and Reports vomiting Genitourinary Genitourinary: Denies hematuria, Denies flank pain, Denies urinary incontinence and Denies urinary urgency Musculoskeletal Musculoskeletal: Denies back pain, Denies muscle weakness, Denies neck pain, Denies numbness and Denies tingling Integumentary/Breasts Skin/Breast: Denies pruritus, Denies erythema, Denies rash and Denies wounds Neurologic Neurologic: Denies behavioral changes, Denies confusion, Denies dizziness, Denies frequent falls, Denies loss of vision, Denies numbness, Denies tingling and Denies weakness Psychiatric Psychiatric: Denies anxiety, Denies behavioral changes, Denies confusion, Denies depression, Denies homicidal ideation and Denies suicidal ideation Endocrine Endocrine: Denies fatigue, Denies flushing and Denies palpitations Hematologic/Lymphatic Hematologic/Lymphatic: Denies easy bruising Allergic/Immunologic Allergic/Immunologic: Denies urticaria, Denies throat swelling and Denies wheezing Patient History <Anuel Stone PA-C - Last Filed: 09/18/21 15:11> Medical History Fatty liver due to alcoholism History of alcohol abuse Pancreatitis Surgical History S/P cholecystectomy Social History Smoking Status: Never smoker Smoking Status: Never smoker alcohol intake frequency: other Substance Use Type: does not use Exam <Anuel Stone PA-C - Last Filed: 09/18/21 15:11> Narrative Exam Narrative: Const General: cooperative, healthy appearing and comfortable HENMT Head: normal to inspection Eyes General: appearance normal, both eyes and all related structures Resp Effort & Inspection: normal respiratory effort Auscultation: clear to auscultation bilaterally Cardio Rate: regular rate Rhythm: regular rhythm GI Other: Abdomen is soft, nondistended, tender to palpation in the epigastric region. General: No CVA tenderness Skin General: no rashes or lesions noted Neuro General: patient alert, patient awake and patient oriented x3 Psych Appearance: grossly normal Mental Status: mental status grossly normal Initial Vital Signs Initial Vital Signs: Vital Signs Temperature 98.0 F 09/18/21 11:05 Pulse Rate 75 09/18/21 11:05 Respiratory Rate 28 H 09/18/21 11:05 Blood Pressure 128/74 09/18/21 11:05 Pulse Oximetry 100 09/18/21 11:05 <Alyson Montero DO - Last Filed: 09/19/21 07:29> Initial Vital Signs Initial Vital Signs: Vital Signs Temperature 98.0 F 09/18/21 11:05 Pulse Rate 75 09/18/21 11:05 Respiratory Rate 28 H 09/18/21 11:05 Blood Pressure 128/74 09/18/21 11:05 Pulse Oximetry 100 09/18/21 11:05 Course <Anuel Stone PA-C - Last Filed: 09/18/21 15:11> Orders Ordered: Discontinued Medications Famotidine (Famotidine 20 Mg/2 Ml Vial) 20 mg IV NOW TAYLOR Last Admin: 09/18/21 13:48 Dose: 20 mg Documented by: RENAE Sodium Chloride (Normal Saline 0.9%) 1,000 mls @ 1,000 mls/hr IV BOLUS ONE Stop: 09/18/21 12:38 Last Infusion: 09/18/21 15:02 Dose: 0 mls/hr Documented by: Admin: 09/18/21 13:48 Dose: 1,000 mls/hr Documented by: RENAE Ceftriaxone Sodium 1,000 mg/ (Sodium Chloride) 100 mls @ 200 mls/hr IV NOW ONE Stop: 09/18/21 12:26 Last Infusion: 09/18/21 14:48 Dose: 0 mls/hr Documented by: Admin: 09/18/21 13:50 Dose: 200 mls/hr Documented by: RENAE Lorazepam (Lorazepam 2 Mg/Ml Inj) 2 mg IV NOW ONE Stop: 09/18/21 12:32 Last Admin: 09/18/21 13:48 Dose: 2 mg Documented by: RENAE Morphine Sulfate (Morphine 4 Mg/Ml Inj) 4 mg IV NOW ONE Stop: 09/18/21 12:23 Last Admin: 09/18/21 15:01 Dose: Not Given Documented by: RENAE Ondansetron HCl (Ondansetron 4 Mg/2 Ml Inj) 4 mg IV NOW ONE Stop: 09/18/21 11:40 Last Admin: 09/18/21 13:48 Dose: 4 mg Documented by: RENAE Pantoprazole Sodium (Pantoprazole 40 Mg Vial) 40 mg IV NOW ONE Stop: 09/18/21 11:40 Last Admin: 09/18/21 13:48 Dose: 40 mg Documented by: RENAE Phenobarbital (Phenobarbital 65 Mg/Ml Vial) 130 mg IV NOW ONE Stop: 09/18/21 12:34 Last Admin: 09/18/21 15:01 Dose: Not Given Documented by: RENAE Vital Signs Vital signs: Vital Signs - 8 hr 09/18/21 11:05 09/18/21 13:56 09/18/21 14:00 Temperature 98.0 F Pulse Rate 75 74 67 Respiratory Rate 28 H 22 Blood Pressure 128/74 152/86 H 156/93 H Pulse Oximetry 100 100 100 09/18/21 14:30 Temperature Pulse Rate 68 Respiratory Rate Blood Pressure 164/89 H Pulse Oximetry 97 <Alyson Montero DO - Last Filed: 09/19/21 07:29> Orders Ordered: Discontinued Medications Famotidine (Famotidine 20 Mg/2 Ml Vial) 20 mg IV NOW TAYLOR Last Admin: 09/18/21 13:48 Dose: 20 mg Documented by: RENAE Sodium Chloride (Normal Saline 0.9%) 1,000 mls @ 1,000 mls/hr IV BOLUS ONE Stop: 09/18/21 12:38 Last Infusion: 09/18/21 15:02 Dose: 0 mls/hr Documented by: Admin: 09/18/21 13:48 Dose: 1,000 mls/hr Documented by: RENAE Ceftriaxone Sodium 1,000 mg/ (Sodium Chloride) 100 mls @ 200 mls/hr IV NOW ONE Stop: 09/18/21 12:26 Last Infusion: 09/18/21 14:48 Dose: 0 mls/hr Documented by: Admin: 09/18/21 13:50 Dose: 200 mls/hr Documented by: RENAE Lorazepam (Lorazepam 2 Mg/Ml Inj) 2 mg IV NOW ONE Stop: 09/18/21 12:32 Last Admin: 09/18/21 13:48 Dose: 2 mg Documented by: RENAE Morphine Sulfate (Morphine 4 Mg/Ml Inj) 4 mg IV NOW ONE Stop: 09/18/21 12:23 Last Admin: 09/18/21 15:01 Dose: Not Given Documented by: RENAE Ondansetron HCl (Ondansetron 4 Mg/2 Ml Inj) 4 mg IV NOW ONE Stop: 09/18/21 11:40 Last Admin: 09/18/21 13:48 Dose: 4 mg Documented by: RENAE Pantoprazole Sodium (Pantoprazole 40 Mg Vial) 40 mg IV NOW ONE Stop: 09/18/21 11:40 Last Admin: 09/18/21 13:48 Dose: 40 mg Documented by: RENAE Phenobarbital (Phenobarbital 65 Mg/Ml Vial) 130 mg IV NOW ONE Stop: 09/18/21 12:34 Last Admin: 09/18/21 15:01 Dose: Not Given Documented by: RENAE Vital Signs Vital signs: Vital Signs - 8 hr 09/18/21 11:05 09/18/21 13:56 09/18/21 14:00 Temperature 98.0 F Pulse Rate 75 74 67 Respiratory Rate 28 H 22 Blood Pressure 128/74 152/86 H 156/93 H Pulse Oximetry 100 100 100 09/18/21 14:30 Temperature Pulse Rate 68 Respiratory Rate Blood Pressure 164/89 H Pulse Oximetry 97 MDM - Nausea/Vomiting/Diarrhea <Anuel Stone PA-C - Last Filed: 09/18/21 15:11> Lab Data Lab results narrative: UA positive for UTI. Potassium 2.9. Result diagrams: 09/18/21 11:39 09/18/21 14:10 Labs: Lab Results 09/18/21 09/18/21 09/18/21 Range/Units 11:39 14:10 14:10 WBC 7.3 (4.5-11.0) X10^3/uL RBC 3.61 L (4.5-5.9) X10^6/uL Hgb 12.4 L (13.5-17.5) g/dL Hct 35.0 L (41-53) % MCV 97.0 (80-100) fL MCH 34.4 H (26-34) PG MCHC 35.4 (30-36) % RDW 13.8 (11.6-14.8) % Plt Count 179 (150-400) X10^3/uL Neut % (Auto) 77.2 H (50-75) % Lymph % (Auto) 12.3 L (25-40) % [place] % (Auto) 10.3 (3-14) % Eos % (Auto) 0.0 L (2-4) % Baso % (Auto) 0.2 (0-2) % Neut # (Auto) 5600 (5764-2003) /uL Lymph # (Auto) 900 L (9292-5080) /uL [place] # (Auto) 700 (0-900) /uL Eos # (Auto) 0 (0-450) /uL Baso # (Auto) 0 (0-100) /uL PT (10.1-12.7) SECONDS INR (0.9-1.3) APTT (26.4-36.2) SECONDS Sodium 137 (137-145) mmol/L Potassium 2.9 L (3.4-5.1) mmol/L Chloride 102 (98-107) mmol/L Carbon Dioxide 27 (22-32) mmol/L BUN 8 L (9-20) mg/dL Creatinine 0.56 L (0.66-1.25) mg/dL Estimated GFR > 60.0 (>60) mL/min BUN/Creatinine Ratio 14.3 (6-22) Glucose 104 (80-110) mg/dL Calcium 8.4 (8.4-10.2) mg/dL Total Bilirubin 0.9 (0.2-1.3) mg/dL AST 31 (17-59) IU/L ALT 23 (<50) IU/L Alkaline Phosphatase 116 D (38-126) U/L Total Protein 7.0 (6.3-8.2) g/dL Albumin 3.8 (3.5-5.0) g/dL Globulin 3.2 (1.7-4.1) g/dL Albumin/Globulin Ratio 1.2 (1.0-2.8) Lipase 52 (23-300) U/L Ur Bilirubin Confirm (Negative) Urine RBC (0-5/HPF) Urine WBC (0-5/HPF) Urine Bacteria (None) Ur Culture Indicated? Ethyl Alcohol < 10 ( - 10) mg/dL 09/18/21 09/18/21 09/18/21 Range/Units 14:27 14:42 14:42 WBC (4.5-11.0) X10^3/uL RBC (4.5-5.9) X10^6/uL Hgb (13.5-17.5) g/dL Hct (41-53) % MCV (80-100) fL MCH (26-34) PG MCHC (30-36) % RDW (11.6-14.8) % Plt Count (150-400) X10^3/uL Neut % (Auto) (50-75) % Lymph % (Auto) (25-40) % [place] % (Auto) (3-14) % Eos % (Auto) (2-4) % Baso % (Auto) (0-2) % Neut # (Auto) (3686-6034) /uL Lymph # (Auto) (6484-4287) /uL [place] # (Auto) (0-900) /uL Eos # (Auto) (0-450) /uL Baso # (Auto) (0-100) /uL PT 14.5 H (10.1-12.7) SECONDS INR 1.3 (0.9-1.3) APTT 26 L (26.4-36.2) SECONDS Sodium (137-145) mmol/L Potassium (3.4-5.1) mmol/L Chloride (98-107) mmol/L Carbon Dioxide (22-32) mmol/L BUN (9-20) mg/dL Creatinine (0.66-1.25) mg/dL Estimated GFR (>60) mL/min BUN/Creatinine Ratio (6-22) Glucose (80-110) mg/dL Calcium (8.4-10.2) mg/dL Total Bilirubin (0.2-1.3) mg/dL AST (17-59) IU/L ALT (<50) IU/L Alkaline Phosphatase (38-126) U/L Total Protein (6.3-8.2) g/dL Albumin (3.5-5.0) g/dL Globulin (1.7-4.1) g/dL Albumin/Globulin Ratio (1.0-2.8) Lipase (23-300) U/L Ur Bilirubin Confirm Negative (Negative) Urine RBC 5-10/hpf H (0-5/HPF) Urine WBC 10-30/hpf H (0-5/HPF) Urine Bacteria Many (>30) H (None) Ur Culture Indicated? Specimen cultured Ethyl Alcohol ( - 10) mg/dL Urine Dip Bedside Urine Glucose Negative Bedside Urine Bilirubin + 1 Bedside Urine Ketone +/- 5 Urine Specific [place] 1.010 Bedside Urine Occult Blood - Negative Bedside Urine pH 8.0 Bedside Urine Protein + 30 Bedside Urine Urobilinogen 1+ 2mg Bedside Urine Nitrite - Negative Bedside Urine Leukocytes + 70 Esterase MDM Narrative Medical decision making narrative: 61-year-old male with past medical history pancreatitis, hepatic steatosis, history of alcohol abuse presents to the ED with 1 day of burning epigastric pain, nausea, vomiting, chills. Given patient's recent ED visit, unchanged CT abdomen pelvis, will not repeat imaging. Will repeat labs, ETOH levels to rule out alcohol withdrawal. Will give IV fluids, Zofran, Protonix, Pepcid AC for symptoms. Will give abdomen and phenobarbital if patient's symptoms are likely from alcohol withdrawal. Will give 1g of ceftriaxone for the UTI. Will reassess. Patient's symptoms improved with Zofran, IV fluids, antacids, Ativan. Patient was given 1 g of ceftriaxone for the UTI. Potassium 2.9. Patient aware. Patient elected to go home prior to getting potassium supplements, phenobarbital, morphine. Risks of leaving prior to full therapy discussed with patient. ED return precautions discussed. Patient verbalized understanding. Patient has a GI appointment set up for tomorrow. Patient agreed to go to the GI specialist. Discharged home. <Alyson Montero DO - Last Filed: 09/19/21 07:29> Lab Data Labs: Lab Results 09/18/21 09/18/21 09/18/21 Range/Units 11:39 14:10 14:10 WBC 7.3 (4.5-11.0) X10^3/uL RBC 3.61 L (4.5-5.9) X10^6/uL Hgb 12.4 L (13.5-17.5) g/dL Hct 35.0 L (41-53) % MCV 97.0 (80-100) fL MCH 34.4 H (26-34) PG MCHC 35.4 (30-36) % RDW 13.8 (11.6-14.8) % Plt Count 179 (150-400) X10^3/uL Neut % (Auto) 77.2 H (50-75) % Lymph % (Auto) 12.3 L (25-40) % [place] % (Auto) 10.3 (3-14) % Eos % (Auto) 0.0 L (2-4) % Baso % (Auto) 0.2 (0-2) % Neut # (Auto) 5600 (4129-2244) /uL Lymph # (Auto) 900 L (5111-0963) /uL [place] # (Auto) 700 (0-900) /uL Eos # (Auto) 0 (0-450) /uL Baso # (Auto) 0 (0-100) /uL PT (10.1-12.7) SECONDS INR (0.9-1.3) APTT (26.4-36.2) SECONDS Sodium 137 (137-145) mmol/L Potassium 2.9 L (3.4-5.1) mmol/L Chloride 102 (98-107) mmol/L Carbon Dioxide 27 (22-32) mmol/L BUN 8 L (9-20) mg/dL Creatinine 0.56 L (0.66-1.25) mg/dL Estimated GFR > 60.0 (>60) mL/min BUN/Creatinine Ratio 14.3 (6-22) Glucose 104 (80-110) mg/dL Calcium 8.4 (8.4-10.2) mg/dL Total Bilirubin 0.9 (0.2-1.3) mg/dL AST 31 (17-59) IU/L ALT 23 (<50) IU/L Alkaline Phosphatase 116 D (38-126) U/L Total Protein 7.0 (6.3-8.2) g/dL Albumin 3.8 (3.5-5.0) g/dL Globulin 3.2 (1.7-4.1) g/dL Albumin/Globulin Ratio 1.2 (1.0-2.8) Lipase 52 (23-300) U/L Ur Bilirubin Confirm (Negative) Urine RBC (0-5/HPF) Urine WBC (0-5/HPF) Urine Bacteria (None) Ur Culture Indicated? Ethyl Alcohol < 10 ( - 10) mg/dL 09/18/21 09/18/21 09/18/21 Range/Units 14:27 14:42 14:42 WBC (4.5-11.0) X10^3/uL RBC (4.5-5.9) X10^6/uL Hgb (13.5-17.5) g/dL Hct (41-53) % MCV (80-100) fL MCH (26-34) PG MCHC (30-36) % RDW (11.6-14.8) % Plt Count (150-400) X10^3/uL Neut % (Auto) (50-75) % Lymph % (Auto) (25-40) % [place] % (Auto) (3-14) % Eos % (Auto) (2-4) % Baso % (Auto) (0-2) % Neut # (Auto) (2764-5340) /uL Lymph # (Auto) (2599-0451) /uL [place] # (Auto) (0-900) /uL Eos # (Auto) (0-450) /uL Baso # (Auto) (0-100) /uL PT 14.5 H (10.1-12.7) SECONDS INR 1.3 (0.9-1.3) APTT 26 L (26.4-36.2) SECONDS Sodium (137-145) mmol/L Potassium (3.4-5.1) mmol/L Chloride (98-107) mmol/L Carbon Dioxide (22-32) mmol/L BUN (9-20) mg/dL Creatinine (0.66-1.25) mg/dL Estimated GFR (>60) mL/min BUN/Creatinine Ratio (6-22) Glucose (80-110) mg/dL Calcium (8.4-10.2) mg/dL Total Bilirubin (0.2-1.3) mg/dL AST (17-59) IU/L ALT (<50) IU/L Alkaline Phosphatase (38-126) U/L Total Protein (6.3-8.2) g/dL Albumin (3.5-5.0) g/dL Globulin (1.7-4.1) g/dL Albumin/Globulin Ratio (1.0-2.8) Lipase (23-300) U/L Ur Bilirubin Confirm Negative (Negative) Urine RBC 5-10/hpf H (0-5/HPF) Urine WBC 10-30/hpf H (0-5/HPF) Urine Bacteria Many (>30) H (None) Ur Culture Indicated? Specimen cultured Ethyl Alcohol ( - 10) mg/dL Urine Dip Bedside Urine Glucose Negative Bedside Urine Bilirubin + 1 Bedside Urine Ketone +/- 5 Urine Specific [place] 1.010 Bedside Urine Occult Blood - Negative Bedside Urine pH 8.0 Bedside Urine Protein + 30 Bedside Urine Urobilinogen 1+ 2mg Bedside Urine Nitrite - Negative Bedside Urine Leukocytes + 70 Esterase Discharge Plan Departure Patient Disposition: Home Clinical Impression: Nausea and vomiting Instructions: DI for Urinary Tract Infection (UTI) Activity Restrictions/Additional Instructions: You were evaluated in the ED today for nausea, vomiting, abdominal pain. You were given your 1st dose of antibiotics for the UTI. Your symptoms improved with IV fluids, Zofran, antacids. Please make sure to continue your course of antibiotics for the UTI. Return to the ED if you have worsening symptoms, fever, chills, chest pain, shortness of breath. Prescriptions: No Action Citalopram Hydrobromide (Citalopram HBr) 20 mg PO Q DAY Qty: 0 0RF ondansetron 4 mg tablet,disintegrating 4 mg PO TID-QID PRN (Reason: nausea and vomiting) Qty: 10 0RF lorazepam 0.5 mg tablet 0.5 mg PO BID PRN (Reason: nausea and vomiting) Qty: 14 0RF metoclopramide HCl [Reglan] 10 mg tablet 10 mg PO Q6H Qty: 60 0RF cefpodoxime 200 mg tablet 200 mg PO BID 10 Days Qty: 20 0RF Rx Instructions: must administer with a meal/food ondansetron 4 mg tablet,disintegrating 4 mg PO Q8H PRN (Reason: nausea and vomiting) Qty: 10 0RF <Alyson Montero, DO - Last Filed: 09/19/21 07:29> Cosign ED Attending Cosignature Attestation: I was immediately available in the department for consultation. Documentation has been reviewed. I agree with assessment and plan.
[2021-09-18] MEDS: ONDANSETRON 4 MG/2 ML INJ IV (13:48)
[2021-09-18] MEDS: LORazepam 2 MG/ML INJ IV (13:48)
[2021-09-18] MEDS: SODIUM CHLORIDE 0.9% 1,000 ML 1000 ML IV (13:48)
[2021-09-18] MEDS: PANTOPRAZOLE 40 MG VIAL IV (13:48)
[2021-09-18] MEDS: FAMOTIDINE 20 MG/2 ML VIAL IV (13:48)
[2021-09-18] MEDS: cefTRIAXone 1,000 MG in SODIUM CHLORIDE 0.9% 100 ML 200 ML IV (13:50)
[2021-09-18 13:56] VITALS: BP 152/86; PULSE 74; O2SAT 100
[2021-09-18 14:00] VITALS: BP 156/93; PULSE 67; RESP 22; O2SAT 100
[2021-09-18 14:23] LABS: Add Manual Diff / Slide Review NO; Basophils Absolute Auto 0 /uL (0-100); Basophils Percent Auto 0.2 % (0-2); Eosinophils Absolute Auto 0 /uL (0-450); Hemoglobin 12.4 g/dL (13.5-17.5); Lymphocytes Absolute Auto 900 /uL (1100-4500); Lymphocytes Percent Auto 12.3 % (25-40); Mean Corpuscular HGB Conc 35.4 % (30-36); Mean Corpuscular Hemoglobin 34.4 PG (26-34); Monocytes Absolute Auto 700 /uL (0-900); Monocytes Percent Auto 10.3 % (3-14); Neutrophils Absolute Auto 5600 /uL (1500-7000); Neutrophils Percent Auto 77.2 % (50-75); Platelet Count 179 X10^3/uL (150-400); Red Blood Cell Count 3.61 X10^6/uL (4.5-5.9); Red Cell Distribution Width 13.8 % (11.6-14.8); White Blood Cell Count 7.3 X10^3/uL (4.5-11.0)
[2021-09-18 14:30] VITALS: BP 164/89; PULSE 68; O2SAT 97
[2021-09-18 14:31] LABS: INR 1.3 (0.9-1.3); Prothrombin Time 14.5 SECONDS (10.1-12.7)
[2021-09-18 14:34] LABS: PTT Partial Thromboplastin Tim 26 SECONDS (26.4-36.2)
[2021-09-18 14:36] LABS: Ethanol (ETOH) < 10 mg/dL
[2021-09-18 14:38] LABS: Alanine Aminotransferase 23 IU/L (<50); Albumin 3.8 g/dL (3.5-5.0); Albumin Globulin Ratio 1.2 (1.0-2.8); Alkaline Phosphatase 116 U/L (38-126); Aspartate Aminotransferase 31 IU/L (17-59); BUN Creatinine Ratio 14.3 (6-22); Bilirubin Total 0.9 mg/dL (0.2-1.3); Blood Urea Nitrogen 8 mg/dL (9-20); Calcium 8.4 mg/dL (8.4-10.2); Carbon Dioxide 27 mmol/L (22-32); Chloride 102 mmol/L (98-107); Estimated Glomerular Filt Rate > 60.0 mL/min (>60); Globulin 3.2 g/dL (1.7-4.1); Glucose 104 mg/dL (80-110); HEMOLYSIS < 15 (0-50); Lipase 52 U/L (23-300); Potassium 2.9 mmol/L (3.4-5.1); Sodium 137 mmol/L (137-145)
[2021-09-18 15:08] LABS: Ictotest Urine Negative (Negative)
[2021-09-18 15:26] LABS: Bacteria Urine Many (>30); RBC Urine 5-10/HPF (0-5/HPF); WBC Urine 10-30/HPF (0-5/HPF)
[2021-09-18 15:27] LABS: Culture Indicated Urine Specimen Cultured
== END 2021-09-18 15:08 | disposition home or self-care (01) ==
PROVIDERS: Emergency Medicine; Emergency Provider Student in an Organized Health Care Education/Training Program
DX: R11.2 Nausea with vomiting, unspecified (principal); R10.13 Epigastric pain
CPT/HCPCS: 80053; 80320; 81003; 81015; 83690; 85025; 85610; 85730; 87077; 87086; 87186; 96365; 96375; 99283; 99284; C9113; J0696; J2060; J2405

== ENCOUNTER 2021-10-02 05:13 | Emergency (ER) | payer OTHER, MEDICAID, SELFPAY ==
[2021-10-02] VITALS (15 sets, daily range): BP systolic 126–167; BP diastolic 70–95; PULSE 69–83; RESP 12–35; TEMP 36.8; O2SAT 98–100; BMI 21.9
--- NOTE | 2021-10-02 05:21 | ED.ABDPAIN ---
HPI - Abdominal Pain <Michelle Alfaro DO - Last Filed: 10/02/21 18:31> General Chief Complaint: Abdominal Pain Stated Complaint: SOB Time Seen by Provider: 10/02/21 05:14 Source: patient, RN notes reviewed and old records reviewed Mode of arrival: Wheelchair Limitations: no limitations History of Present Illness HPI narrative: 61-year-old male with the past medical history of pancreatitis, hepatic steatosis, history of alcohol abuse and pancreatic cyst or pseudocyst. Patient arrives complaining of epigastric pain, nausea and vomiting for her possibly 24 hours. Patient symptoms either started on Friday or Friday. He has felt chilled but no objective fevers. He states he had some yogurt which caused him to projectile vomit. He has had epigastric pain consistent with his prior episodes. He had diarrhea last week for 3 or 4 days but denies any currently. He has been taking antibiotics for a UTI. He states his urine does seem somewhat darker. He did have an EGD which showed esophagitis and patient did come with his paperwork and images. He was supposed to be changed to omeprazole but has not filled this prescription. Patient other new medication changes. He states that his throat has been very irritated since the EGD. Related Data Home Medications Medication Instructions Recorded Confirmed Citalopram Hydrobromide 20 mg PO Q DAY #0 09/09/07 (Citalopram HBr) Previous Rx's Medication Instructions Recorded lorazepam 0.5 mg tablet 0.5 mg PO BID PRN #14 tab 09/05/21 ondansetron 4 mg disintegrating 4 mg PO TID-QID PRN #10 tab 09/05/21 tablet metoclopramide HCl 10 mg tablet 10 mg PO Q6H #60 tab 09/07/21 (Reglan) ondansetron 4 mg disintegrating 4 mg PO Q8H PRN #10 tab 09/17/21 tablet Allergies Allergy/AdvReac Type Severity Reaction Status Date / Time Sulfa (Sulfonamide Allergy Verified 09/17/21 11:34 Antibiotics) Review of Systems <Michelle Alfaro DO - Last Filed: 10/02/21 18:31> Review of Systems ROS Unobtainable: All systems reviewed & are unremarkable except as noted in HPI and below Patient History <Michelle Alfaro DO - Last Filed: 10/02/21 18:31> Medical History Fatty liver due to alcoholism History of alcohol abuse Pancreatitis Surgical History S/P cholecystectomy Social History Smoking Status: Never smoker Smoking Status: Never smoker alcohol intake frequency: other Substance Use Type: does not use Exam <Michelle Alfaro DO - Last Filed: 10/02/21 18:31> Narrative Exam Narrative: GENERAL: Alert and oriented x three, tall, thin male in moderate distress. HEENT: Head normocephalic, atraumatic, EOMI, pupils reactive, face symmetric, moist mucous membranes NECK: Supple, full range of motion CARDIOVASCULAR: Regular rate and rhythm without murmurs, rubs or gallops. No JVD. No bilateral lower extremity swelling. RESPIRATORY: Breath sounds equal bilaterally, no wheezes rales or rhonchi. Patient has tachypnea which resolves while talking on the phone. He is able to speak in full sentences with myself and on his cell phone. No accessory muscle use. ABDOMEN: Soft, generalized tenderness greatest at the epigastric region. Nondistended. Bowel sounds all 4 quadrants. No guarding or rebound, rigidity, no mass : No CVA tenderness EXTREMITIES: Normal range of motion, no clubbing or edema. Neurovascularly intact. Normal movement of all 4 extremities. NEUROLOGICAL: Cranial nerves II through XII grossly intact. Moving all extremities SKIN: Warm, dry, no petechiae, no rashes or lesions. Initial Vital Signs Initial Vital Signs: Vital Signs Temperature 98.3 F 10/02/21 05:30 Pulse Rate 83 10/02/21 05:30 Respiratory Rate 35 H 10/02/21 05:30 Blood Pressure 167/95 H 10/02/21 05:30 Pulse Oximetry 99 10/02/21 05:30 <Alyson Montero DO - Last Filed: 10/02/21 16:08> Initial Vital Signs Initial Vital Signs: Vital Signs Temperature 98.3 F 10/02/21 05:30 Pulse Rate 83 10/02/21 05:30 Respiratory Rate 35 H 10/02/21 05:30 Blood Pressure 167/95 H 10/02/21 05:30 Pulse Oximetry 99 10/02/21 05:30 Course <Michellealejandro Alfaro, DO - Last Filed: 10/02/21 18:31> Orders Ordered: ED Orders 10/02/21 11:25 Ictotest Urine Stat Urinalysis and Microscopic Stat Discontinued Medications Diphenhydramine HCl (Diphenhydramine 50 Mg/Ml Vial) 25 mg IV NOW ONE Stop: 10/02/21 06:20 Last Admin: 10/02/21 07:01 Dose: 25 mg Documented by: CTRCARLIN Haloperidol (Haloperidol 5 Mg/Ml Vial) 2 mg IV NOW ONE Stop: 10/02/21 06:20 Last Admin: 10/02/21 06:27 Dose: 2 mg Documented by: CTRCARLIN Sodium Chloride (Normal Saline 0.9%) 1,000 mls @ 1,000 mls/hr IV BOLUS ONE Stop: 10/02/21 06:27 Last Infusion: 10/02/21 07:40 Dose: 0 mls/hr Documented by: Admin: 10/02/21 05:51 Dose: 1,000 mls/hr Documented by: VIDYA POTASSIUM CHLORIDE IN WATER (Potassium Cl 10 Meq/100 Ml Shirin) 10 meq in 100 mls @ 100 mls/hr IV Q1H TAYLOR Stop: 10/02/21 10:14 Last Infusion: 10/02/21 14:07 Dose: 0 mls/hr Documented by: Admin: 10/02/21 13:04 Dose: 100 mls/hr Documented by: Infusion: 10/02/21 12:54 Dose: 0 mls/hr Documented by: Admin: 10/02/21 11:54 Dose: 100 mls/hr Documented by: Infusion: 10/02/21 11:10 Dose: 100 mls/hr Documented by: Admin: 10/02/21 10:10 Dose: 100 mls/hr Documented by: Infusion: 10/02/21 07:40 Dose: 0 mls/hr Documented by: Admin: 10/02/21 06:31 Dose: 100 mls/hr Documented by: CTRCARLIN Magnesium Sulfate (Magnesium Sulfate) 2 gm in 50 mls @ 25 mls/hr IV NOW ONE Stop: 10/02/21 08:56 Last Infusion: 10/02/21 10:25 Dose: 0 mls/hr Documented by: MIROSLAVA Cosigned by: RENAE Admin: 10/02/21 07:32 Dose: 25 mls/hr Documented by: MIROSLAVA Cosigned by: TERRI Ketorolac Tromethamine (Ketorolac 30 Mg/Ml Vial) 30 mg IV NOW ONE Stop: 10/02/21 05:29 Last Admin: 10/02/21 05:51 Dose: 30 mg Documented by: VIDYA Ondansetron HCl (Ondansetron 4 Mg/2 Ml Inj) 4 mg IV NOW ONE Stop: 10/02/21 05:29 Last Admin: 10/02/21 05:51 Dose: 4 mg Documented by: VIDYA Pantoprazole Sodium (Pantoprazole 40 Mg Vial) 40 mg IV NOW ONE Stop: 10/02/21 05:29 Last Admin: 10/02/21 05:51 Dose: 40 mg Documented by: VIDYA Reevaluation(s) Reevaluation #1: Patient is drinking water in his room while continuing to have intermittent dry heaving/vomiting. Patient was instructed to stop with oral intake. He was given a swab. Patient's potassium is quite low which we discussed is dangerous he had not stayed to receive his potassium last time he was here. He is agreeable at this time we discussed it takes 4 hours to be given because if given too quickly can kill him. Patient has received multiple medications in the past which are sometimes adequate for symptoms and sometimes not. Even after stopping his oral intake here in the department on several occasions will try alternative method for his nausea vomiting and abdominal pain. Time: 06:15 Vital Signs Vital signs: Vital Signs - 8 hr 10/02/21 10:30 10/02/21 11:00 10/02/21 11:30 Pulse Rate 70 72 75 Respiratory Rate 18 15 19 Blood Pressure 158/89 H 137/75 138/81 Pulse Oximetry 99 99 98 10/02/21 12:00 10/02/21 12:30 10/02/21 13:00 Pulse Rate 72 70 69 Respiratory Rate 20 15 18 Blood Pressure 147/92 H 136/77 126/70 Pulse Oximetry 98 98 98 10/02/21 13:30 10/02/21 14:00 Pulse Rate 70 76 Respiratory Rate 16 20 Blood Pressure 140/87 144/87 H Pulse Oximetry 98 99 <Alyson Montero, DO - Last Filed: 10/02/21 16:08> Orders Ordered: ED Orders 10/02/21 11:25 Ictotest Urine Stat Urinalysis and Microscopic Stat Discontinued Medications Diphenhydramine HCl (Diphenhydramine 50 Mg/Ml Vial) 25 mg IV NOW ONE Stop: 10/02/21 06:20 Last Admin: 10/02/21 07:01 Dose: 25 mg Documented by: CTRCARLIN Haloperidol (Haloperidol 5 Mg/Ml Vial) 2 mg IV NOW ONE Stop: 10/02/21 06:20 Last Admin: 10/02/21 06:27 Dose: 2 mg Documented by: VIDYA Sodium Chloride (Normal Saline 0.9%) 1,000 mls @ 1,000 mls/hr IV BOLUS ONE Stop: 10/02/21 06:27 Last Infusion: 10/02/21 07:40 Dose: 0 mls/hr Documented by: Admin: 10/02/21 05:51 Dose: 1,000 mls/hr Documented by: VIDYA POTASSIUM CHLORIDE IN WATER (Potassium Cl 10 Meq/100 Ml Shirin) 10 meq in 100 mls @ 100 mls/hr IV Q1H TAYLOR Stop: 10/02/21 10:14 Last Infusion: 10/02/21 14:07 Dose: 0 mls/hr Documented by: Admin: 10/02/21 13:04 Dose: 100 mls/hr Documented by: Infusion: 10/02/21 12:54 Dose: 0 mls/hr Documented by: Admin: 10/02/21 11:54 Dose: 100 mls/hr Documented by: Infusion: 10/02/21 11:10 Dose: 100 mls/hr Documented by: Admin: 10/02/21 10:10 Dose: 100 mls/hr Documented by: Infusion: 10/02/21 07:40 Dose: 0 mls/hr Documented by: Admin: 10/02/21 06:31 Dose: 100 mls/hr Documented by: CTRCARLIN Magnesium Sulfate (Magnesium Sulfate) 2 gm in 50 mls @ 25 mls/hr IV NOW ONE Stop: 10/02/21 08:56 Last Infusion: 10/02/21 10:25 Dose: 0 mls/hr Documented by: MIROSLAVA Cosigned by: RENAE Admin: 10/02/21 07:32 Dose: 25 mls/hr Documented by: MIROSLAVA Cosigned by: TERRI Ketorolac Tromethamine (Ketorolac 30 Mg/Ml Vial) 30 mg IV NOW ONE Stop: 10/02/21 05:29 Last Admin: 10/02/21 05:51 Dose: 30 mg Documented by: VIDYA Ondansetron HCl (Ondansetron 4 Mg/2 Ml Inj) 4 mg IV NOW ONE Stop: 10/02/21 05:29 Last Admin: 10/02/21 05:51 Dose: 4 mg Documented by: VIDYA Pantoprazole Sodium (Pantoprazole 40 Mg Vial) 40 mg IV NOW ONE Stop: 10/02/21 05:29 Last Admin: 10/02/21 05:51 Dose: 40 mg Documented by: VIDYA Vital Signs Vital signs: Vital Signs - 8 hr 10/02/21 10:30 10/02/21 11:00 10/02/21 11:30 Pulse Rate 70 72 75 Respiratory Rate 18 15 19 Blood Pressure 158/89 H 137/75 138/81 Pulse Oximetry 99 99 98 10/02/21 12:00 10/02/21 12:30 10/02/21 13:00 Pulse Rate 72 70 69 Respiratory Rate 20 15 18 Blood Pressure 147/92 H 136/77 126/70 Pulse Oximetry 98 98 98 10/02/21 13:30 10/02/21 14:00 Pulse Rate 70 76 Respiratory Rate 16 20 Blood Pressure 140/87 144/87 H Pulse Oximetry 98 99 MDM - Abdominal Pain <Michelle Aflaro DO - Last Filed: 10/02/21 18:31> Lab Data Result diagrams: 10/02/21 05:45 10/02/21 05:45 Labs: Lab Results 10/02/21 10/02/21 10/02/21 Range/Units 05:45 05:45 05:45 WBC 5.0 (4.5-11.0) X10^3/uL RBC 4.27 L (4.5-5.9) X10^6/uL Hgb 14.9 (13.5-17.5) g/dL Hct 41.8 (41-53) % MCV 97.8 (80-100) fL MCH 34.9 H (26-34) PG MCHC 35.7 (30-36) % RDW 13.6 (11.6-14.8) % Plt Count 220 (150-400) X10^3/uL Neut % (Auto) 83.4 H (50-75) % Lymph % (Auto) 10.7 L (25-40) % [place] % (Auto) 5.7 (3-14) % Eos % (Auto) 0.0 L (2-4) % Baso % (Auto) 0.2 (0-2) % Neut # (Auto) 4200 (7381-3303) /uL Lymph # (Auto) 500 L (5247-0153) /uL [place] # (Auto) 300 (0-900) /uL Eos # (Auto) 0 (0-450) /uL Baso # (Auto) 0 (0-100) /uL Sodium 139 (137-145) mmol/L Potassium 2.7 L* (3.4-5.1) mmol/L Chloride 99 (98-107) mmol/L Carbon Dioxide 22 (22-32) mmol/L BUN 7 L (9-20) mg/dL Creatinine 0.73 (0.66-1.25) mg/dL Estimated GFR > 60.0 (>60) mL/min BUN/Creatinine Ratio 9.6 (6-22) Glucose 169 H (80-110) mg/dL Calcium 9.4 (8.4-10.2) mg/dL Magnesium 1.3 L (1.6-2.3) mg/dL Total Bilirubin 1.4 H (0.2-1.3) mg/dL AST 35 (17-59) IU/L ALT 32 (<50) IU/L Alkaline Phosphatase 130 H (38-126) U/L Total Protein 8.1 (6.3-8.2) g/dL Albumin 4.6 (3.5-5.0) g/dL Globulin 3.5 (1.7-4.1) g/dL Albumin/Globulin Ratio 1.3 (1.0-2.8) Lipase 74 (23-300) U/L Urine Color Urine Appearance Urine pH (4.5-8.0) Ur Specific [place] (1.000-1.035) Urine Protein (Negative) Urine Glucose (UA) (Negative) g/dL Urine Ketones (NEGATIVE) Urine Occult Blood (Negative) Urine Nitrate (Negative) Urine Bilirubin (NEGATIVE) Ur Bilirubin Confirm (Negative) Urine Urobilinogen (0.2) E.U./dL Ur Leukocyte Esterase (NEGATIVE) Urine RBC (0-5/HPF) Urine WBC (0-5/HPF) Ur Squamous Epith Cells (0-5/HPF) Ur Transition Epith Cell (0-5/HPF) Ur Renal Epithelial Cell (0-1/HPF) Urine Bacteria (None) Urine Mucus (Negative) Ur Culture Indicated? Ethyl Alcohol ( - 10) mg/dL 10/02/21 10/02/21 Range/Units 05:45 11:25 WBC (4.5-11.0) X10^3/uL RBC (4.5-5.9) X10^6/uL Hgb (13.5-17.5) g/dL Hct (41-53) % MCV (80-100) fL MCH (26-34) PG MCHC (30-36) % RDW (11.6-14.8) % Plt Count (150-400) X10^3/uL Neut % (Auto) (50-75) % Lymph % (Auto) (25-40) % [place] % (Auto) (3-14) % Eos % (Auto) (2-4) % Baso % (Auto) (0-2) % Neut # (Auto) (7938-7681) /uL Lymph # (Auto) (7324-9327) /uL [place] # (Auto) (0-900) /uL Eos # (Auto) (0-450) /uL Baso # (Auto) (0-100) /uL Sodium (137-145) mmol/L Potassium (3.4-5.1) mmol/L Chloride (98-107) mmol/L Carbon Dioxide (22-32) mmol/L BUN (9-20) mg/dL Creatinine (0.66-1.25) mg/dL Estimated GFR (>60) mL/min BUN/Creatinine Ratio (6-22) Glucose (80-110) mg/dL Calcium (8.4-10.2) mg/dL Magnesium (1.6-2.3) mg/dL Total Bilirubin (0.2-1.3) mg/dL AST (17-59) IU/L ALT (<50) IU/L Alkaline Phosphatase (38-126) U/L Total Protein (6.3-8.2) g/dL Albumin (3.5-5.0) g/dL Globulin (1.7-4.1) g/dL Albumin/Globulin Ratio (1.0-2.8) Lipase (23-300) U/L Urine Color Yellow Urine Appearance Clear Urine pH 7.5 (4.5-8.0) Ur Specific [place] 1.015 (1.000-1.035) Urine Protein 1+ H (Negative) Urine Glucose (UA) Negative (Negative) g/dL Urine Ketones 2+ H (NEGATIVE) Urine Occult Blood Negative (Negative) Urine Nitrate Negative (Negative) Urine Bilirubin 1+ H (NEGATIVE) Ur Bilirubin Confirm Positive H (Negative) Urine Urobilinogen 1.0 (0.2) E.U./dL Ur Leukocyte Esterase Negative (NEGATIVE) Urine RBC None seen (0-5/HPF) Urine WBC 5-10/hpf H (0-5/HPF) Ur Squamous Epith Cells 10-30 /hpf H D (0-5/HPF) Ur Transition Epith Cell 1-5/hpf (0-5/HPF) Ur Renal Epithelial Cell 1-5/hpf H (0-1/HPF) Urine Bacteria Occasional (0-1) D (None) Urine Mucus 2+ H (Negative) Ur Culture Indicated? Cult not indicated Ethyl Alcohol < 10 ( - 10) mg/dL Imaging Data kub xray: Radiologist's Impression: Nonspecific bowel gas pattern without evidence of obstruction. Mild to moderate stool burden is present. Through clips in the right upper quadrant which may be secondary to prior cholecystectomy. ECG Data Attestation: I personally reviewed and interpreted this ECG as follows: Prior ECG tracings: available for review Interpretation: Sinus rhythm. Rate of 71, MI 140, QRS 88 QTC 491. Right axis deviation. Patient has prior from 09/17/2021 which appears to have a lot of artifact. EKG from 09/05/2021 appears similar to today's with no acute ST changes appreciated. MDM Narrative Medical decision making narrative: This is a 61-year-old male with recurrent chronic abdominal pain and nausea and vomiting with prior history pancreatitis although patient's lipase has been persistently appropriate. He does have some elevations in liver enzymes and bilirubin. Patient was continuing to drink water in the department while having nausea and active vomiting. CT KUB was obtained and shows no signs of obstruction. labs are repeated he has been hypokalemic recently and has worsened. His renal function appears appropriate. Patient is afebrile. He is occasionally tachypneic immediately after vomiting. Patient did have EGD on 09/21/2021 which showed esophagitis but no other changes biopsies per patient were negative. He was switched to omeprazole from his other antacid but has not initiated this. Plan to replace patient's potassium. Magnesium level is pending. Patient signed out to Dr. Montero, if he has persistent vomiting may require admission but if were able to control this he would likely be able to discharge home today. She has sign-out from Dr. Alfaro. Patient was sleeping but now awake alert no longer having any pain nausea or vomiting. He is tolerating oral fluids. He seems back to his baseline. His potassium and magnesium have both been replaced. Patient states that he actually has potassium supplements at home. He also has anti nausea medication at home. <Alyson Montero, DO - Last Filed: 10/02/21 16:08> Lab Data Labs: Lab Results 10/02/21 10/02/21 10/02/21 Range/Units 05:45 05:45 05:45 WBC 5.0 (4.5-11.0) X10^3/uL RBC 4.27 L (4.5-5.9) X10^6/uL Hgb 14.9 (13.5-17.5) g/dL Hct 41.8 (41-53) % MCV 97.8 (80-100) fL MCH 34.9 H (26-34) PG MCHC 35.7 (30-36) % RDW 13.6 (11.6-14.8) % Plt Count 220 (150-400) X10^3/uL Neut % (Auto) 83.4 H (50-75) % Lymph % (Auto) 10.7 L (25-40) % [place] % (Auto) 5.7 (3-14) % Eos % (Auto) 0.0 L (2-4) % Baso % (Auto) 0.2 (0-2) % Neut # (Auto) 4200 (5215-7636) /uL Lymph # (Auto) 500 L (7921-0920) /uL [place] # (Auto) 300 (0-900) /uL Eos # (Auto) 0 (0-450) /uL Baso # (Auto) 0 (0-100) /uL Sodium 139 (137-145) mmol/L Potassium 2.7 L* (3.4-5.1) mmol/L Chloride 99 (98-107) mmol/L Carbon Dioxide 22 (22-32) mmol/L BUN 7 L (9-20) mg/dL Creatinine 0.73 (0.66-1.25) mg/dL Estimated GFR > 60.0 (>60) mL/min BUN/Creatinine Ratio 9.6 (6-22) Glucose 169 H (80-110) mg/dL Calcium 9.4 (8.4-10.2) mg/dL Magnesium 1.3 L (1.6-2.3) mg/dL Total Bilirubin 1.4 H (0.2-1.3) mg/dL AST 35 (17-59) IU/L ALT 32 (<50) IU/L Alkaline Phosphatase 130 H (38-126) U/L Total Protein 8.1 (6.3-8.2) g/dL Albumin 4.6 (3.5-5.0) g/dL Globulin 3.5 (1.7-4.1) g/dL Albumin/Globulin Ratio 1.3 (1.0-2.8) Lipase 74 (23-300) U/L Urine Color Urine Appearance Urine pH (4.5-8.0) Ur Specific [place] (1.000-1.035) Urine Protein (Negative) Urine Glucose (UA) (Negative) g/dL Urine Ketones (NEGATIVE) Urine Occult Blood (Negative) Urine Nitrate (Negative) Urine Bilirubin (NEGATIVE) Ur Bilirubin Confirm (Negative) Urine Urobilinogen (0.2) E.U./dL Ur Leukocyte Esterase (NEGATIVE) Urine RBC (0-5/HPF) Urine WBC (0-5/HPF) Ur Squamous Epith Cells (0-5/HPF) Ur Transition Epith Cell (0-5/HPF) Ur Renal Epithelial Cell (0-1/HPF) Urine Bacteria (None) Urine Mucus (Negative) Ur Culture Indicated? Ethyl Alcohol ( - 10) mg/dL 10/02/21 10/02/21 Range/Units 05:45 11:25 WBC (4.5-11.0) X10^3/uL RBC (4.5-5.9) X10^6/uL Hgb (13.5-17.5) g/dL Hct (41-53) % MCV (80-100) fL MCH (26-34) PG MCHC (30-36) % RDW (11.6-14.8) % Plt Count (150-400) X10^3/uL Neut % (Auto) (50-75) % Lymph % (Auto) (25-40) % [place] % (Auto) (3-14) % Eos % (Auto) (2-4) % Baso % (Auto) (0-2) % Neut # (Auto) (8638-5018) /uL Lymph # (Auto) (9222-5053) /uL [place] # (Auto) (0-900) /uL Eos # (Auto) (0-450) /uL Baso # (Auto) (0-100) /uL Sodium (137-145) mmol/L Potassium (3.4-5.1) mmol/L Chloride (98-107) mmol/L Carbon Dioxide (22-32) mmol/L BUN (9-20) mg/dL Creatinine (0.66-1.25) mg/dL Estimated GFR (>60) mL/min BUN/Creatinine Ratio (6-22) Glucose (80-110) mg/dL Calcium (8.4-10.2) mg/dL Magnesium (1.6-2.3) mg/dL Total Bilirubin (0.2-1.3) mg/dL AST (17-59) IU/L ALT (<50) IU/L Alkaline Phosphatase (38-126) U/L Total Protein (6.3-8.2) g/dL Albumin (3.5-5.0) g/dL Globulin (1.7-4.1) g/dL Albumin/Globulin Ratio (1.0-2.8) Lipase (23-300) U/L Urine Color Yellow Urine Appearance Clear Urine pH 7.5 (4.5-8.0) Ur Specific [place] 1.015 (1.000-1.035) Urine Protein 1+ H (Negative) Urine Glucose (UA) Negative (Negative) g/dL Urine Ketones 2+ H (NEGATIVE) Urine Occult Blood Negative (Negative) Urine Nitrate Negative (Negative) Urine Bilirubin 1+ H (NEGATIVE) Ur Bilirubin Confirm Positive H (Negative) Urine Urobilinogen 1.0 (0.2) E.U./dL Ur Leukocyte Esterase Negative (NEGATIVE) Urine RBC None seen (0-5/HPF) Urine WBC 5-10/hpf H (0-5/HPF) Ur Squamous Epith Cells 10-30 /hpf H D (0-5/HPF) Ur Transition Epith Cell 1-5/hpf (0-5/HPF) Ur Renal Epithelial Cell 1-5/hpf H (0-1/HPF) Urine Bacteria Occasional (0-1) D (None) Urine Mucus 2+ H (Negative) Ur Culture Indicated? Cult not indicated Ethyl Alcohol < 10 ( - 10) mg/dL MDM Narrative Medical decision making narrative: This is a 61-year-old male with recurrent chronic abdominal pain and nausea and vomiting with prior history pancreatitis although patient's lipase has been persistently appropriate. He does have some elevations in liver enzymes and bilirubin. Patient was continuing to drink water in the department while having nausea and active vomiting. CT KUB was obtained and shows no signs of obstruction. labs are repeated he has been hypokalemic recently and has worsened. His renal function appears appropriate. Patient is afebrile. He is occasionally tachypneic immediately after vomiting. Patient did have EGD on 09/21/2021 which showed esophagitis but no other changes biopsies per patient were negative. He was switched to omeprazole from his other antacid but has not initiated this. Plan to replace patient's potassium. Magnesium level is pending. Patient signed out to Dr. Montero, if he has persistent vomiting may require admission but if were able to control this he would likely be able to discharge home today. She has sign-out from Dr. Alfaro. Patient was sleeping but now awake alert no longer having any pain nausea or vomiting. He is tolerating oral fluids. He seems back to his baseline. His potassium and magnesium have both been replaced. Patient states that he actually has potassium supplements at home. He also has anti nausea medication at home. Discharge Plan Departure Patient Disposition: Home Clinical Impression: Nausea and vomiting, Hypokalemia Instructions: DI for Abdominal Pain-Adult Activity Restrictions/Additional Instructions: *You have been diagnosed with nausea vomiting, low potassium *What to do: Please take your medication as directed. Please take post tolerating a for the next few days *Continue to take medications as directed *Follow up with your primary care provider in 2-3 days or call [phone] *Return to ER if you should have post distant vomiting, worsening abdominal pain, fever any new, worsening or concerning symptoms Prescriptions: No Action Citalopram Hydrobromide (Citalopram HBr) 20 mg PO Q DAY Qty: 0 0RF ondansetron 4 mg tablet,disintegrating 4 mg PO TID-QID PRN (Reason: nausea and vomiting) Qty: 10 0RF lorazepam 0.5 mg tablet 0.5 mg PO BID PRN (Reason: nausea and vomiting) Qty: 14 0RF metoclopramide HCl [Reglan] 10 mg tablet 10 mg PO Q6H Qty: 60 0RF ondansetron 4 mg tablet,disintegrating 4 mg PO Q8H PRN (Reason: nausea and vomiting) Qty: 10 0RF
--- NOTE | 2021-10-02 05:35 | DI.RAD.S_ITS ---
PROCEDURE: XR KUB INDICATIONS: v/epigastric pain TECHNIQUE: One view of the abdomen acquired. COMPARISON: None. FINDINGS: Surgical changes and devices: Surgical clips in right upper quadrant compatible with prior cholecystectomy. Bowel: Bowel gas pattern is nonobstructive. Scattered fecal material seen throughout the abdomen. Soft tissues: No suspicious abdominal calcifications. Specifically, no focal calcifications projecting over the bilateral renal shadows. There is a 2 mm rounded calcification noted in the right lower pelvis, likely representing a small phlebolith. Visualized solid organ contours appear normal in size. Bones: No suspicious bony lesions. IMPRESSION: Nonspecific bowel gas pattern without evidence for bowel obstruction. Small 2 mm right lower pelvic calcification favored to represent a small pelvic phlebolith. 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 Dictated by: Tomás Uribe M.D. on 10/02/2021 at 7:21 Approved by: Tomás Uribe M.D. on 10/02/2021 at 7:23
[2021-10-02] MEDS: KETOROLAC 30 MG/ML VIAL IV (05:51)
[2021-10-02] MEDS: PANTOPRAZOLE 40 MG VIAL IV (05:51)
[2021-10-02] MEDS: ONDANSETRON 4 MG/2 ML INJ IV (05:51)
[2021-10-02] MEDS: SODIUM CHLORIDE 0.9% 1,000 ML 1000 ML IV (05:51)
[2021-10-02 06:02] LABS: Add Manual Diff / Slide Review NO; Basophils Absolute Auto 0 /uL (0-100); Basophils Percent Auto 0.2 % (0-2); Eosinophils Absolute Auto 0 /uL (0-450); Hematocrit 41.8 % (41-53); Hemoglobin 14.9 g/dL (13.5-17.5); Lymphocytes Absolute Auto 500 /uL (1100-4500); Lymphocytes Percent Auto 10.7 % (25-40); Mean Corpuscular HGB Conc 35.7 % (30-36); Mean Corpuscular Hemoglobin 34.9 PG (26-34); Mean Corpuscular Volume 97.8 fL (80-100); Monocytes Absolute Auto 300 /uL (0-900); Monocytes Percent Auto 5.7 % (3-14); Neutrophils Absolute Auto 4200 /uL (1500-7000); Neutrophils Percent Auto 83.4 % (50-75); Platelet Count 220 X10^3/uL (150-400); Red Blood Cell Count 4.27 X10^6/uL (4.5-5.9); Red Cell Distribution Width 13.6 % (11.6-14.8)
[2021-10-02 06:11] LABS: Albumin 4.6 g/dL (3.5-5.0); Albumin Globulin Ratio 1.3 (1.0-2.8); Alkaline Phosphatase 130 U/L (38-126); Aspartate Aminotransferase 35 IU/L (17-59); BUN Creatinine Ratio 9.6 (6-22); Bilirubin Total 1.4 mg/dL (0.2-1.3); Blood Urea Nitrogen 7 mg/dL (9-20); Calcium 9.4 mg/dL (8.4-10.2); Carbon Dioxide 22 mmol/L (22-32); Chloride 99 mmol/L (98-107); Estimated Glomerular Filt Rate > 60.0 mL/min (>60); Globulin 3.5 g/dL (1.7-4.1); Glucose 169 mg/dL (80-110); HEMOLYSIS 16 (0-50); Lipase 74 U/L (23-300); Sodium 139 mmol/L (137-145); Total Protein 8.1 g/dL (6.3-8.2)
[2021-10-02 06:13] LABS: Potassium 2.7 mmol/L (3.4-5.1)
[2021-10-02 06:18] LABS: Alanine Aminotransferase 32 IU/L (<50)
[2021-10-02] MEDS: HALOPERIDOL 5 MG/ML VIAL 2 MG IV (06:27)
[2021-10-02] MEDS: POTASSIUM CHLORIDE IN WATER 10 MEQ/100 ML PIGGYBACK 100 MEQ IV ×4 (06:31→13:04)
[2021-10-02 06:35] LABS: Magnesium 1.3 mg/dL (1.6-2.3)
[2021-10-02] MEDS: diphenhydrAMINE 50 MG/ML VIAL 25 MG IV (07:01)
[2021-10-02 07:18] LABS: Ethanol (ETOH) < 10 mg/dL
[2021-10-02] MEDS: MAGNESIUM SULFATE 2 GM/50 ML PIGGYBACK IV (07:32)
[2021-10-02 12:06] LABS: Bacteria Urine Occasional (0-1); RBC Urine None Seen (0-5/HPF); Renal Epithelial Cells Urine 1-5/HPF (0-1/HPF); Squamous Epithelial Cell Urine 10-30 /HPF (0-5/HPF); Transitional Epi Cells Urine 1-5/HPF (0-5/HPF); WBC Urine 5-10/HPF (0-5/HPF)
[2021-10-02 12:07] LABS: Culture Indicated Urine Cult Not Indicated; Mucus Urine 2+ (Negative)
[2021-10-02 12:17] LABS: Appearance Urine UA CLEAR; Bilirubin Urine UA 1+ (NEGATIVE); Color Urine UA YELLOW; Glucose Urine UA NEGATIVE (Negative); Ketones Urine UA 2+ (NEGATIVE); Leukocyte Esterase Urine UA NEGATIVE (NEGATIVE); Nitrite Urine UA NEGATIVE (Negative); Occult Blood Urine UA NEGATIVE (Negative); Protein Urine UA 1+ (Negative); Specific Gravity Urine UA 1.015 (1.000-1.035); pH Urine UA 7.5 (4.5-8.0)
[2021-10-02 12:21] LABS: Ictotest Urine Positive (Negative)
== END 2021-10-02 14:31 | disposition home or self-care (01) ==
PROVIDERS: Emergency Medicine; Emergency Provider Emergency Medicine
DX: R11.2 Nausea with vomiting, unspecified (principal); E87.6 Hypokalemia
CPT/HCPCS: 36415; 74018; 80053; 80320; 81001; 83690; 83735; 85025; 93005; 96361; 96365; 96366; 96367; 96375; 99284; C9113; J1200; J1630; J1885; J2405; J3475

== ENCOUNTER 2021-10-13 23:06 | Inpatient (IN) | payer OTHER, MEDICAID, SELFPAY ==
[2021-10-13 23:15] VITALS: BP 144/99; PULSE 99; RESP 34; TEMP 36.4; O2SAT 99; BMI 21.2
--- NOTE | 2021-10-13 23:24 | ED.NAVMDI ---
HPI - Nausea/Vomiting/Diarrhea General Chief complaint: Nausea/Vomiting/Diarrhea Stated complaint: vomiting/chest burning Time Seen by Provider: 10/13/21 23:21 History of Present Illness HPI Narrative: 61-year-old male with history of chronic pancreatitis and former heavy alcohol abuse presents for evaluation of persistent nausea and vomiting for the past 4-5 days. He has become dizzy, weak and lightheaded and has not been able to keep anything even water down. He states he last consumed alcohol 6 weeks ago. He denies any recent bad food, new medications. He has had no fever but complains of chills. He states this feels relatively similar to prior episodes and states he has had an endoscopy in [place] that showed some mild inflammation but was otherwise well, since his last visit. Recent visits this year with a significant number of imaging modalities including ultrasound, CT and even an MRCP. He has a known pancreatic pseudocyst and frequently slightly dilated common bile duct thought to be normal in the aftermath of a surgically absent gallbladder. Related Data Home Medications Medication Instructions Recorded Confirmed Citalopram Hydrobromide 20 mg PO Q DAY #0 09/09/07 (Citalopram HBr) Previous Rx's Medication Instructions Recorded lorazepam 0.5 mg tablet 0.5 mg PO BID PRN #14 tab 09/05/21 ondansetron 4 mg disintegrating 4 mg PO TID-QID PRN #10 tab 09/05/21 tablet metoclopramide HCl 10 mg tablet 10 mg PO Q6H #60 tab 09/07/21 (Reglan) ondansetron 4 mg disintegrating 4 mg PO Q8H PRN #10 tab 09/17/21 tablet Allergies Allergy/AdvReac Type Severity Reaction Status Date / Time Sulfa (Sulfonamide Allergy Verified 09/17/21 11:34 Antibiotics) Review of Systems Review of Systems Narrative: GENERAL: See HPI HEENT: Denies sinus pain, ear pain, sore throat, difficulty swallowing, dizziness. RESPIRATORY: Denies dyspnea, cough, wheezing, hemoptysis, sputum. CARDIOVASCULAR: Denies chest pain, palpitations, orthopnea, edema, GASTROINTESTINAL: See HPI : Denies dysuria, frequency, incontinence, hematuria, urinary retention. MUSCULOSKELETAL: denies weakness, joint pain, or bony pain SKIN: Denies rash, skin lesions, or other NEUROLOGIC: Denies weakness, headache, numbness, change in speech, confusion, seizures, incoordination. PSYCHIATRIC: No concerning psychosocial issues. 12 point review of systems is negative except for those stated above Patient History Medical History Fatty liver due to alcoholism History of alcohol abuse Pancreatitis Surgical History S/P cholecystectomy Social History Smoking Status: Never smoker Smoking Status: Never smoker alcohol intake frequency: other Substance Use Type: does not use Exam Narrative Exam Narrative: GENERAL: [61 year old patient appears older than stated age. Obviously uncomfortable and unwell, holding an emesis bag, mild resting tremor from persistent vomiting (this is very in her her him per his own admission) HEAD: Atraumatic. Normocephalic. EYES: Pupils equal round and reactive. Extraocular motions intact. No scleral icterus. No injection or drainage. ENT: Nose without bleeding, purulent drainage. Throat without erythema, tonsillar hypertrophy or exudate. Airway patent. NECK: Trachea midline. Non tender CARDIOVASCULAR: Regular rate and rhythm without murmurs, gallops, or rubs. RESPIRATORY: Clear to auscultation. Breath sounds equal bilaterally. No wheezes, rales, or rhonchi. GASTROINTESTINAL: Abdomen soft, non-tender, nondistended. EXTREMITIES: No edema or joint tenderness. BACK: Nontender without deformity or crepitance. No flank tenderness. NEURO: AOx3. SKIN: No rash or erythema of visible areas Initial Vital Signs Initial Vital Signs: Vital Signs Temperature 97.5 F L 10/13/21 23:15 Pulse Rate 99 H 10/13/21 23:15 Respiratory Rate 34 H 10/13/21 23:15 Blood Pressure 144/99 H 10/13/21 23:15 Pulse Oximetry 99 10/13/21 23:15 Course Orders Ordered: ED Orders 10/13/21 23:20 Complete Blood Count AUTO DIFF Stat Comprehensive Metabolic Panel Stat Ethanol (ETOH) Stat Lipase Stat Magnesium Stat Prothrombin Time INR Stat 10/13/21 23:25 Consult to PHARMACY INTERN - Ge[employer] Analyst Stat 10/14/21 00:08 US abdomen limited Stat 10/14/21 00:21 COVID19 -Nasal swab/Pre-Proc Stat 10/14/21 01:25 Urine Drug Screen, Rapid Stat POTASSIUM CHLORIDE IN WATER (Potassium Cl 10 Meq/100 Ml Shirin) 10 meq in 100 mls @ 100 mls/hr IV Q1H TAYLOR Stop: 10/14/21 03:44 Last Admin: 10/14/21 01:06 Dose: 100 mls/hr Documented by: Infusion: 10/14/21 00:58 Dose: 100 mls/hr Documented by: Admin: 10/13/21 23:58 Dose: 100 mls/hr Documented by: ANNABEL Magnesium Sulfate (Magnesium Sulfate) 2 gm in 50 mls @ 25 mls/hr IV NOW ONE Stop: 10/14/21 01:45 Last Admin: 10/13/21 23:58 Dose: 25 mls/hr Documented by: ANNABEL Cosigned by: ANGELTI Sodium Chloride (Normal Saline 0.9%) 1,000 mls @ 1,000 mls/hr IV BOLUS ONE Stop: 10/14/21 02:26 Discontinued Medications Sodium Chloride (Normal Saline 0.9%) 1,000 mls @ 1,000 mls/hr IV BOLUS ONE Stop: 10/14/21 00:23 Last Infusion: 10/14/21 00:40 Dose: 0 mls/hr Documented by: Admin: 10/13/21 23:36 Dose: 1,000 mls/hr Documented by: STANLEY Lorazepam (Lorazepam 2 Mg/Ml Inj) 1 mg IV NOW ONE Stop: 10/13/21 23:30 Last Admin: 10/13/21 23:36 Dose: 1 mg Documented by: STANLEY Ondansetron HCl (Ondansetron 4 Mg/2 Ml Inj) 4 mg IV NOW ONE Stop: 10/13/21 23:25 Last Admin: 10/13/21 23:36 Dose: 4 mg Documented by: STANLEY Pantoprazole Sodium (Pantoprazole 40 Mg Vial) 40 mg IV NOW ONE Stop: 10/13/21 23:25 Last Admin: 10/13/21 23:36 Dose: 40 mg Documented by: STANLEY Potassium Chloride (Potassium Chloride 20 Meq/15 Ml Udc) 40 meq PO NOW ONE Stop: 10/13/21 23:46 Last Admin: 10/14/21 00:55 Dose: Not Given Documented by: AUALEKSANDRA Reevaluation(s) Reevaluation #1: Despite multiple antiemetics patient still unable to tolerate orals. Time: 01:16 Vital Signs Vital signs: Vital Signs - 8 hr 10/13/21 23:15 10/13/21 23:30 10/13/21 23:31 Temperature 97.5 F L Pulse Rate 99 H 92 H Respiratory Rate 34 H 22 Blood Pressure 144/99 H 142/81 H Pulse Oximetry 99 100 10/14/21 00:00 10/14/21 00:30 10/14/21 01:00 Temperature Pulse Rate 76 81 83 Respiratory Rate 19 17 22 Blood Pressure 138/86 145/88 H 174/96 H Pulse Oximetry 99 98 100 MDM - Nausea/Vomiting/Diarrhea Medical Records Attestation: I reviewed the patient's medical records. Medical records narrative: EGD from 09/21/21 reviewed which notes Lab Data Result diagrams: 10/13/21 23:20 10/13/21 23:20 Labs: Lab Results 10/13/21 10/13/21 10/13/21 Range/Units 23:20 23:20 23:20 WBC 9.1 (4.5-11.0) X10^3/uL RBC 4.60 (4.5-5.9) X10^6/uL Hgb 16.2 (13.5-17.5) g/dL Hct 45.3 (41-53) % MCV 98.5 (80-100) fL MCH 35.3 H (26-34) PG MCHC 35.8 (30-36) % RDW 14.4 (11.6-14.8) % Plt Count 135 L (150-400) X10^3/uL Neut % (Auto) 82.5 H (50-75) % Lymph % (Auto) 9.0 L (25-40) % [place] % (Auto) 8.3 (3-14) % Eos % (Auto) 0.0 L (2-4) % Baso % (Auto) 0.2 (0-2) % Neut # (Auto) 7500 H (6061-4726) /uL Lymph # (Auto) 800 L (0314-2035) /uL [place] # (Auto) 800 (0-900) /uL Eos # (Auto) 0 (0-450) /uL Baso # (Auto) 0 (0-100) /uL PT 15.9 H (10.1-12.7) SECONDS INR 1.4 H (0.9-1.3) Sodium 134 L (137-145) mmol/L Potassium 2.6 L* (3.4-5.1) mmol/L Chloride 95 L (98-107) mmol/L Carbon Dioxide 25 (22-32) mmol/L BUN 8 L (9-20) mg/dL Creatinine 0.87 (0.66-1.25) mg/dL Estimated GFR > 60.0 (>60) mL/min BUN/Creatinine Ratio 9.2 (6-22) Glucose 168 H (80-110) mg/dL Calcium 9.7 (8.4-10.2) mg/dL Magnesium 1.0 L (1.6-2.3) mg/dL Total Bilirubin 2.1 H (0.2-1.3) mg/dL AST 41 (17-59) IU/L ALT 27 (<50) IU/L Alkaline Phosphatase 168 H (38-126) U/L Total Protein 7.8 (6.3-8.2) g/dL Albumin 4.3 (3.5-5.0) g/dL Globulin 3.5 (1.7-4.1) g/dL Albumin/Globulin Ratio 1.2 (1.0-2.8) Lipase 50 (23-300) U/L Ethyl Alcohol < 10 ( - 10) mg/dL SARS-CoV-2 (PCR) (Negative) 10/14/21 Range/Units 00:21 WBC (4.5-11.0) X10^3/uL RBC (4.5-5.9) X10^6/uL Hgb (13.5-17.5) g/dL Hct (41-53) % MCV (80-100) fL MCH (26-34) PG MCHC (30-36) % RDW (11.6-14.8) % Plt Count (150-400) X10^3/uL Neut % (Auto) (50-75) % Lymph % (Auto) (25-40) % [place] % (Auto) (3-14) % Eos % (Auto) (2-4) % Baso % (Auto) (0-2) % Neut # (Auto) (3182-1859) /uL Lymph # (Auto) (9042-0215) /uL [place] # (Auto) (0-900) /uL Eos # (Auto) (0-450) /uL Baso # (Auto) (0-100) /uL PT (10.1-12.7) SECONDS INR (0.9-1.3) Sodium (137-145) mmol/L Potassium (3.4-5.1) mmol/L Chloride (98-107) mmol/L Carbon Dioxide (22-32) mmol/L BUN (9-20) mg/dL Creatinine (0.66-1.25) mg/dL Estimated GFR (>60) mL/min BUN/Creatinine Ratio (6-22) Glucose (80-110) mg/dL Calcium (8.4-10.2) mg/dL Magnesium (1.6-2.3) mg/dL Total Bilirubin (0.2-1.3) mg/dL AST (17-59) IU/L ALT (<50) IU/L Alkaline Phosphatase (38-126) U/L Total Protein (6.3-8.2) g/dL Albumin (3.5-5.0) g/dL Globulin (1.7-4.1) g/dL Albumin/Globulin Ratio (1.0-2.8) Lipase (23-300) U/L Ethyl Alcohol ( - 10) mg/dL SARS-CoV-2 (PCR) Negative (Negative) Imaging Data US - abdomen: Radiologist's Impression: [address] [address] Ultrasound Report Signed Patient: Elvis Zheng MR#: [id number] : 1960 Acct:[id number] Age/Sex: 61 / M Date of Service: 10/14/21 Loc: ED Accession Number: [id number] ?? Procedure: US abdomen limited Ordering Provider: Eliezer Ferreira D.O. PROCEDURE: US ABDOMEN LIMITED ? INDICATIONS:? EPIGASTRIC PAIN ? TECHNIQUE:? Real-time focused scanning was performed of the abdomen, with image documentation.? ? COMPARISON:? [facility], MR, MR ABDOMEN WO CON, 09/06/2021, 9:36.? [facility], CT, CT ABDOMEN PELVIS W CON, 09/17/2021, 12:55.? [facility], US, US ABDOMEN LIMITED, 09/06/2021, 3:42. ? FINDINGS:? Study limited at clinician request.? The liver is normal in size and free of focal lesion or intrahepatic biliary distension.? The gallbladder is surgically absent.? The common duct is stable in caliber measuring between 7 and 9 mm, little if any changed from 10-11 mm 09/17/[address] scanning.? A small cyst is again seen at the pancreatic head, measuring 1.1 cm in stable size. ? IMPRESSION:? No slip box changer time.? Continued mild prominence of the common bile duct and continued stable appearance of a small cyst at the pancreatic head.? Prior cholecystectomy. ? ? Dictated by: Brandon Negrete M.D. on 10/14/2021 at 1:04 ? ? Approved by: Brandon Negrete M.D. on 10/14/2021 at 1:09 ? MDM Narrative Medical decision making narrative: 61-year-old male with multiple gastrointestinal diagnoses presents with persistent nausea and vomiting over the past few days. He has been given multiple antiemetics and still fails an oral challenge. He requires hospitalization for ongoing treatment and stabilization of his vomiting as well as electrolyte abnormalities including hypokalemia and hypomagnesemia. Ultrasound shows no change and recent EGD from September 21 is reassuring, demonstrating only LA grade D esophagitis. Discharge Plan Departure Patient Disposition: Admitted As Inpatient Clinical Impression: Intractable nausea and vomiting, Hypokalemia, Hypomagnesemia Admit Date/Time: 10/14/21 01:31
[2021-10-13 23:30] VITALS: BP 142/81
[2021-10-13 23:31] VITALS: PULSE 92; RESP 22; O2SAT 100
[2021-10-13 23:35] LABS: INR 1.4 (0.9-1.3); Prothrombin Time 15.9 SECONDS (10.1-12.7)
[2021-10-13 23:36] LABS: Add Manual Diff / Slide Review NO; Basophils Absolute Auto 0 /uL (0-100); Basophils Percent Auto 0.2 % (0-2); Eosinophils Absolute Auto 0 /uL (0-450); Hematocrit 45.3 % (41-53); Hemoglobin 16.2 g/dL (13.5-17.5); Lymphocytes Absolute Auto 800 /uL (1100-4500); Mean Corpuscular HGB Conc 35.8 % (30-36); Mean Corpuscular Hemoglobin 35.3 PG (26-34); Mean Corpuscular Volume 98.5 fL (80-100); Monocytes Absolute Auto 800 /uL (0-900); Monocytes Percent Auto 8.3 % (3-14); Neutrophils Absolute Auto 7500 /uL (1500-7000); Neutrophils Percent Auto 82.5 % (50-75); Platelet Count 135 X10^3/uL (150-400); Red Cell Distribution Width 14.4 % (11.6-14.8); White Blood Cell Count 9.1 X10^3/uL (4.5-11.0)
[2021-10-13] MEDS: ONDANSETRON 4 MG/2 ML INJ IV (23:36)
[2021-10-13] MEDS: LORazepam 2 MG/ML INJ 1 MG IV (23:36)
[2021-10-13] MEDS: SODIUM CHLORIDE 0.9% 1,000 ML 1000 ML IV (23:36)
[2021-10-13] MEDS: PANTOPRAZOLE 40 MG VIAL IV (23:36)
[2021-10-13 23:40] LABS: Albumin 4.3 g/dL (3.5-5.0); Albumin Globulin Ratio 1.2 (1.0-2.8); Alkaline Phosphatase 168 U/L (38-126); BUN Creatinine Ratio 9.2 (6-22); Bilirubin Total 2.1 mg/dL (0.2-1.3); Blood Urea Nitrogen 8 mg/dL (9-20); Calcium 9.7 mg/dL (8.4-10.2); Carbon Dioxide 25 mmol/L (22-32); Chloride 95 mmol/L (98-107); Estimated Glomerular Filt Rate > 60.0 mL/min (>60); Ethanol (ETOH) < 10 mg/dL; Globulin 3.5 g/dL (1.7-4.1); Glucose 168 mg/dL (80-110); HEMOLYSIS < 15 (0-50); Lipase 50 U/L (23-300); Sodium 134 mmol/L (137-145); Total Protein 7.8 g/dL (6.3-8.2)
[2021-10-13 23:45] LABS: Potassium 2.6 mmol/L (3.4-5.1)
[2021-10-13 23:46] LABS: Aspartate Aminotransferase 41 IU/L (17-59)
[2021-10-13 23:47] LABS: Alanine Aminotransferase 27 IU/L (<50)
[2021-10-13] MEDS: POTASSIUM CHLORIDE IN WATER 10 MEQ/100 ML PIGGYBACK 100 MEQ IV (23:58)
[2021-10-13] MEDS: MAGNESIUM SULFATE 2 GM/50 ML PIGGYBACK IV (23:58)
[2021-10-14] VITALS (11 sets, daily range): BP systolic 122–174; BP diastolic 82–112; PULSE 76–86; RESP 17–24; TEMP 36.6–37.3; O2SAT 95–100; BMI 21.2
--- NOTE | 2021-10-14 00:08 | DI.US.S_ITS ---
PROCEDURE: US ABDOMEN LIMITED INDICATIONS: EPIGASTRIC PAIN TECHNIQUE: Real-time focused scanning was performed of the abdomen, with image documentation. COMPARISON: [facility], MR, MR ABDOMEN WO CON, 09/06/2021, 9:36. [facility], CT, CT ABDOMEN PELVIS W CON, 09/17/2021, 12:55. [facility], US, US ABDOMEN LIMITED, 09/06/2021, 3:42. FINDINGS: Study limited at clinician request. The liver is normal in size and free of focal lesion or intrahepatic biliary distension. The gallbladder is surgically absent. The common duct is stable in caliber measuring between 7 and 9 mm, little if any changed from 10-11 mm 09/17/[address] scanning. A small cyst is again seen at the pancreatic head, measuring 1.1 cm in stable size. IMPRESSION: No manager exchange time. Continued mild prominence of the common bile duct and continued stable appearance of a small cyst at the pancreatic head. Prior cholecystectomy. Dictated by: Brandon Negrete M.D. on 10/14/2021 at 1:04 Approved by: Brandon Negrete M.D. on 10/14/2021 at 1:09
[2021-10-14 00:43] LABS: COVID19 -Nasal RAPID Negative (Negative)
--- NOTE | 2021-10-14 01:01 | PC.NURSE ---
Pt unable to tolerate PO K+. Dry heaving after the first sip
[2021-10-14] MEDS: POTASSIUM CHLORIDE IN WATER 10 MEQ/100 ML PIGGYBACK 100 MEQ IV ×2 (01:06→02:27)
[2021-10-14] MEDS: SODIUM CHLORIDE 0.9% 1,000 ML 1000 ML IV (01:32)
--- NOTE | 2021-10-14 01:48 | P.HP_ITS ---
History of Present Illness History of Present Illness Date Patient Seen: 10/14/21 Time Patient Seen: 01:48 Date of Onset of Symptoms: 10/07/21 Chief complaint: vomiting/chest burning Narrative: This is a pleasant 61-year-old male who presents to the emergency department for intractable vomiting. Patient has a long history of same. He has been to the ER multiple times for the same reason. He has a long history of pancreatitis, esophagitis, alcohol disuse syndrome and pancreatic pseudocyst. He underwent an EGD at [facility] September 17. It showed esophagitis and use placed on Protonix 40 mg twice daily. He has been taking this. He has not had any alcohol for 6 weeks. He is now not been able to hold anything down. He was given IV fluids and Zofran and and the relative am and still with persistent vomiting even of water. He was found have profound hypokalemia and hypomagnesemia and those have both been replaced while in the ER.. Due to persistent vomiting despite at times it was determined to admit him to the [facility]. Past medical history: Esophagitis Pancreatitis Recurrent bouts of intractable vomiting Fatty liver disease Alcohol disuse syndrome Allergies: Sulfa Past surgical history: Cholecystectomy Social history: Patient is currently living in an at [facility] in [facility]. Patient's girlfriend is currently being treated for cancer. Patient is to grown children who are healthy. Health related behavior: Patient has not had alcohol for 6 weeks. Patient previously drank on a regular basis. Patient does not smoke Family history: Mom in her mid 60s. Had a stroke and then developed diabetes. Father from a massive acute GA in his late 60s Patient has 2 children who are alive and healthy Review of systems Patient denies any chest pain or shortness of breath. Patient denies any fever or chills. Patient denies any cough Patient denies any headache Patient denies any bloody stools Patient is losing weight. He is not able to eat much. Constant abdominal pain and not much appetite Patient History Medical History Fatty liver due to alcoholism History of alcohol abuse Pancreatitis Surgical History S/P cholecystectomy Family & Social History Safety & Behavioral: Feels Safe in Current Yes Environment Tobacco & Substance use: Smoking Status Never smoker alcohol intake frequency other Substance Use Type does not use Meds Home Medications and Allergies Home Medications Medication Instructions Recorded Confirmed Type Citalopram Hydrobromide 20 mg PO Q DAY #0 09/09/07 History (Citalopram HBr) lorazepam 0.5 mg tablet 0.5 mg PO BID PRN #14 tab 09/05/21 Rx ondansetron 4 mg disintegrating 4 mg PO TID-QID PRN #10 tab 09/05/21 Rx tablet metoclopramide HCl 10 mg tablet 10 mg PO Q6H #60 tab 09/07/21 Rx (Reglan) ondansetron 4 mg disintegrating 4 mg PO Q8H PRN #10 tab 09/17/21 Rx tablet Allergies Allergy/AdvReac Type Severity Reaction Status Date / Time Sulfa (Sulfonamide Allergy Verified 09/17/21 11:34 Antibiotics) Exam Vital Signs (past 8 hours): - 10/13/21 23:15 10/13/21 23:30 10/13/21 23:31 Temperature 97.5 F L Pulse Rate 99 H 92 H Respiratory Rate 34 H 22 Blood Pressure 144/99 H 142/81 H Pulse Oximetry 99 100 10/14/21 00:00 10/14/21 00:30 10/14/21 01:00 Temperature Pulse Rate 76 81 83 Respiratory Rate 19 17 22 Blood Pressure 138/86 145/88 H 174/96 H Pulse Oximetry 99 98 100 10/14/21 01:30 Temperature Pulse Rate 82 Respiratory Rate 17 Blood Pressure 145/112 H Pulse Oximetry 98 Oxygen Delivery Method Nasal Cannula Oxygen Flow Rate 2 Narrative Exam Narrative: S patient tremulous due to feeling cold Vital signs stable. Afebrile. Alert and oriented x3 HEENT: Poor dentition. Mucous membranes dry but no lesions noted Neck: Supple without adenopathy Chest: Clear to auscultation throughout Cor: Regular rate and rhythm without murmur with distant S1-S2 Abdomen: No hepatosplenomegaly mild midepigastric tenderness, positive bowel sounds x4 Extremities: No edema pulses intact Patient appears slightly cachectic Neurologic exam nonfocal Objective Labs Result Diagrams: 10/13/21 23:20 10/13/21 23:20 Labs: Laboratory Results - last 24 hr 10/13/21 10/13/21 10/13/21 23:20 23:20 23:20 WBC 9.1 RBC 4.60 Hgb 16.2 Hct 45.3 MCV 98.5 MCH 35.3 H MCHC 35.8 RDW 14.4 Plt Count 135 L Neut % (Auto) 82.5 H Lymph % (Auto) 9.0 L [place] % (Auto) 8.3 Eos % (Auto) 0.0 L Baso % (Auto) 0.2 Neut # (Auto) 7500 H Lymph # (Auto) 800 L [place] # (Auto) 800 Eos # (Auto) 0 Baso # (Auto) 0 PT 15.9 H INR 1.4 H Sodium 134 L Potassium 2.6 L* Chloride 95 L Carbon Dioxide 25 BUN 8 L Creatinine 0.87 Estimated GFR > 60.0 BUN/Creatinine Ratio 9.2 Glucose 168 H Calcium 9.7 Magnesium 1.0 L Total Bilirubin 2.1 H AST 41 ALT 27 Alkaline Phosphatase 168 H Total Protein 7.8 Albumin 4.3 Globulin 3.5 Albumin/Globulin Ratio 1.2 Lipase 50 Ethyl Alcohol < 10 SARS-CoV-2 (PCR) 10/14/21 00:21 WBC RBC Hgb Hct MCV MCH MCHC RDW Plt Count Neut % (Auto) Lymph % (Auto) [place] % (Auto) Eos % (Auto) Baso % (Auto) Neut # (Auto) Lymph # (Auto) [place] # (Auto) Eos # (Auto) Baso # (Auto) PT INR Sodium Potassium Chloride Carbon Dioxide BUN Creatinine Estimated GFR BUN/Creatinine Ratio Glucose Calcium Magnesium Total Bilirubin AST ALT Alkaline Phosphatase Total Protein Albumin Globulin Albumin/Globulin Ratio Lipase Ethyl Alcohol SARS-CoV-2 (PCR) Negative Assessment & Plan Assessment & Plan narrative: 61-year-old male with intractable vomiting, hypokalemia, hypomagnesemia admitted for the same. Assessment 1. Intractable vomiting suspect recurrence of chronic condition which is multi factorial etiology. No current evidence of pancreatitis but we will continue to trend lipase values. Likely in part related to esophagitis Plan: Will give IV fluid hydration Will give IV antiemetics including Zofran and lorazepam and Haldol if necessary. Will give Benadryl as well if needed. Recent EGD so I do not think surgical consult and EGD indicated at this time but we will continue to follow closely. Protonix 40 mg IV q.12 hours Assessment 2. Hypo magnesemia Plan will replace and follow Assessment 3. Hypokalemia Plan: Will replace and continue to follow. Code status is full code 60 minutes was spent with patient in discussing with ER meeting with patient, discussing with nursing and formulating plan of care Time Spent With Patient Critical Care time: I spent a total of [] minutes of critical care time on this patient's care today; this time is exclusive of procedural time.
[2021-10-14] MEDS: LORazepam 2 MG/ML INJ 1 MG IV ×3 (02:37→21:28)
[2021-10-14] MEDS: POTASSIUM CHLORIDE IN WATER 10 MEQ/100 ML PIGGYBACK 75 MEQ IV (03:57)
[2021-10-14] MEDS: SODIUM CHLORIDE 0.9% 1,000 ML 150 ML IV ×3 (04:20→18:11)
[2021-10-14 06:28] LABS: Add Manual Diff / Slide Review NO; Basophils Absolute Auto 0 /uL (0-100); Basophils Percent Auto 0.2 % (0-2); Eosinophils Absolute Auto 0 /uL (0-450); Eosinophils Percent Auto 0.1 % (2-4); Hematocrit 37.9 % (41-53); Hemoglobin 13.3 g/dL (13.5-17.5); Lymphocytes Absolute Auto 900 /uL (1100-4500); Lymphocytes Percent Auto 13.6 % (25-40); Mean Corpuscular HGB Conc 35.1 % (30-36); Mean Corpuscular Hemoglobin 34.6 PG (26-34); Mean Corpuscular Volume 98.7 fL (80-100); Monocytes Absolute Auto 500 /uL (0-900); Monocytes Percent Auto 7.9 % (3-14); Neutrophils Absolute Auto 5200 /uL (1500-7000); Neutrophils Percent Auto 78.2 % (50-75); Platelet Count 82 X10^3/uL (150-400); Red Blood Cell Count 3.84 X10^6/uL (4.5-5.9); White Blood Cell Count 6.7 X10^3/uL (4.5-11.0)
[2021-10-14 06:39] LABS: Alanine Aminotransferase 12 IU/L (<50); Alkaline Phosphatase 104 U/L (38-126); Aspartate Aminotransferase 25 IU/L (17-59); BUN Creatinine Ratio 10.8 (6-22); Bilirubin Total 1.2 mg/dL (0.2-1.3); Blood Urea Nitrogen 7 mg/dL (9-20); Calcium 8.6 mg/dL (8.4-10.2); Carbon Dioxide 25 mmol/L (22-32); Chloride 105 mmol/L (98-107); Estimated Glomerular Filt Rate > 60.0 mL/min (>60); Globulin 2.9 g/dL (1.7-4.1); Glucose 117 mg/dL (80-110); HEMOLYSIS 15 (0-50); Magnesium 1.6 mg/dL (1.6-2.3); Potassium 3.7 mmol/L (3.4-5.1); Sodium 133 mmol/L (137-145); Total Protein 5.9 g/dL (6.3-8.2)
[2021-10-14 07:09] LABS: Lipase 41 U/L (23-300)
[2021-10-14] MEDS: MAGNESIUM SULFATE 4 GM/100 ML PIGGYBACK IV (07:38)
[2021-10-14] MEDS: POTASSIUM CHLORIDE 20 MEQ TAB 40 MEQ PO (07:38)
[2021-10-14] MEDS: PANTOPRAZOLE 40 MG VIAL IV ×2 (09:16→20:51)
[2021-10-14 09:49] LABS: Ur Creatinine Normal (Normal)
[2021-10-14 09:50] LABS: UR Morphine/Opiate cutoff 300 Negative (Negative); Ur Specific Gravity Normal (Normal); Urine Amphetamines Negative (Negative); Urine Barbiturates Negative (Negative); Urine Benzodiazepines Positive (Negative); Urine Cocaine Negative (Negative); Urine MDMA Negative (Negative); Urine Methadone Negative (Negative); Urine Methamphetamines Negative (Negative); Urine Oxycodone Negative (Negative); Urine Phencyclidine Negative (Negative); Urine Tetrahydrocannabinol Negative (Negative); Urine Tricyclic Antidepressant Negative (Negative); Urine pH Normal (Normal)
[2021-10-14 10:12] LABS: Appearance Urine UA CLOUDY; Bilirubin Urine UA 1+ (NEGATIVE); Color Urine UA YELLOW; Glucose Urine UA NEGATIVE (Negative); Ketones Urine UA TRACE (NEGATIVE); Leukocyte Esterase Urine UA 2+ (NEGATIVE); Nitrite Urine UA NEGATIVE (Negative); Occult Blood Urine UA 2+ (Negative); Protein Urine UA 2+ (Negative); Specific Gravity Urine UA 1.015 (1.000-1.035); pH Urine UA 8.5 (4.5-8.0)
[2021-10-14 10:55] LABS: Bacteria Urine Many (>30); Culture Indicated Urine Specimen Cultured; Ictotest Urine Negative (Negative); RBC Urine 5-10/HPF (0-5/HPF); Squamous Epithelial Cell Urine 0-1 /HPF (0-5/HPF); WBC Urine 30-100/HPF (0-5/HPF)
[2021-10-14] MEDS: ONDANSETRON 4 MG/2 ML INJ IV ×2 (11:11→20:52)
[2021-10-14] MEDS: cefTRIAXone 1,000 MG in SODIUM CHLORIDE 0.9% 100 ML 200 ML IV (11:52)
--- NOTE | 2021-10-14 12:54 | CM.DANOTE ---
Patient is a 61 yo male who was admitted on 10/14/21 today for Vomiting/Chest Burn. Pt has [facility] and [employer] for insurance and his PCP is not listed. EMR was reviewed. Per MD, pt with hx of ETOH abuse and pancreatitis and multiple ED visits for similar and had recent EGD at [facility] and started on new medication. Pt informed ED staff that he has remained sober the past 6 weeks and now having intractable nausea and vomiting. SW attempted to meet bedside with pt and explained role and pt actively retching and looks quite ill feeling and pt requesting SW come back but also requests additional blanket and moaning. SW provided warm blanket and updated RN and will attempt assessment when pt more medically appropriate. Plan: SW to follow tomorrow when pt hopefully more medially stable and less miserable for discussion on d/c planning to confirm safe plan of home when stable and any further identified needs. KAN Laird Discharge Planning/Care Management CM Discharge Assessment Start: 10/14/21 12:52 Freq: Status: Active Protocol: Document 10/14/21 12:53 BF (Rec: 10/14/21 12:54 BF [id number]) Discharge Planning Assessment Assigned [employer] Supervisor KAN Mckenzie Advance Directives? No Advance Directives on File No History Provided By Patient,Medical Record Has Patient been admitted in last 30 No days? Prior Living Arrangements Mobile home Type of transporation used prior to Drives own vehicle admit Independent with ADL's Yes Is patient alert and oriented? Yes Caregiver for Another No Barriers to Discharge No Discharge Plan Home Referrals Initiated None needed Additional Comment Pending pt progress with n/v Review Status In Process Please Provide Date Initial DC 10/14/21 Assessment Was Performed Next Review Type Continued Stay Review
[2021-10-14] MEDS: ACETAMINOPHEN 325 MG TABLET 650 MG PO ×2 (18:11→23:16)
--- NOTE | 2021-10-14 23:28 | PC.NURSE ---
Patient is alert and oriented. Breath sounds CTA with RA sat of 98%. HRR. Complained of nausea earlier and was medicated with Zofran and then later Ativan and still states he is feeling slightly nauseated but without emesis. Does complain of upper abdominal pain and rates severity as 6/10; is receiving scheduled Tylenol. States he normally takes Ibuprofen at home so advised to avoid Ibuprofen in future. BT hypoactive. Denies dysuria, frequency or urgency with urination; urine is [place]. Is able to turn himself in bed. Gait not assessed at this time. Agreeable to having bilateral calf SCD's applied. Very drowsy at this time likely related to Ativan. Fall risk score is high and bed alarm is activated.
[2021-10-15] VITALS (8 sets, daily range): BP systolic 128–141; BP diastolic 76–88; PULSE 71–79; RESP 17–27; TEMP 36.2–37.4; O2SAT 99–100
[2021-10-15] MEDS: SODIUM CHLORIDE 0.9% 1,000 ML 150 ML IV ×4 (01:26→23:37)
[2021-10-15 05:34] LABS: Hematocrit 38.6 % (41-53); Hemoglobin 13.6 g/dL (13.5-17.5); Mean Corpuscular HGB Conc 35.3 % (30-36); Mean Corpuscular Hemoglobin 35.3 PG (26-34); Platelet Count 72 X10^3/uL (150-400); Red Blood Cell Count 3.86 X10^6/uL (4.5-5.9); Red Cell Distribution Width 13.9 % (11.6-14.8)
[2021-10-15 05:47] LABS: BUN Creatinine Ratio 4.9 (6-22); Blood Urea Nitrogen 3 mg/dL (9-20); Calcium 8.1 mg/dL (8.4-10.2); Carbon Dioxide 24 mmol/L (22-32); Chloride 106 mmol/L (98-107); Estimated Glomerular Filt Rate > 60.0 mL/min (>60); Glucose 99 mg/dL (80-110); HEMOLYSIS 34 (0-50); Magnesium 1.7 mg/dL (1.6-2.3); Potassium 3.6 mmol/L (3.4-5.1); Sodium 132 mmol/L (137-145)
--- NOTE | 2021-10-15 07:53 | PC.NURSE ---
Addendum entered by Chely Swartz R.N. 10/15/21 19:20: Patient scored a 7 on ciwa scale. He is resting now supine. Given ativan earlier for nausea. Addendum entered by Chely Swartz R.N. 10/15/21 18:37: Patient still states that he had his last drink 6 weeks ago but he is now having hallucinations, tremors, vision issues. and he is diaphoretic. Just given 1mg of iv ativan. Mag rider finished. Patient was up in the chair for a while and back to bed. Addendum entered by Chely Swartz R.N. 10/15/21 13:59: Patient given ativan 1mg iv for nausea and emesis of 100cc. He is comfortable, iv rocephin is in and his magnesium rider is infusing now at 25cc/hr. Original Note: Assess- Patient is alert and oriented x4, he states that the last time he had a drink was 6weeks ago, he also states that his girlfriend is dying of liver cancer. Patients bowel tones are not heard in the 4 quadrants. He always states when asked by RN that his discomfort is a 6/10, tylenol does seem to be helping him some, he will be do again at 1200. If his discomfort gets worse then will talke to hospitalist.
[2021-10-15] MEDS: PANTOPRAZOLE 40 MG VIAL IV ×2 (08:00→20:40)
[2021-10-15] MEDS: LORazepam 2 MG/ML INJ 1 MG IV ×2 (12:06→18:29)
[2021-10-15] MEDS: cefTRIAXone 1,000 MG in SODIUM CHLORIDE 0.9% 100 ML 200 ML IV (12:15)
[2021-10-15] MEDS: MAGNESIUM SULFATE 2 GM/50 ML PIGGYBACK IV (13:01)
[2021-10-15] MEDS: ACETAMINOPHEN 325 MG TABLET 650 MG PO ×2 (13:02→18:29)
--- NOTE | 2021-10-15 13:28 | P.PN_ITS ---
Subjective Subjective Date Patient Seen: 10/15/21 Time Patient Seen: 13:28 Interval history: Becomes more nauseous today after meals with slight epigastric pain. Overall still doesn't feel well and not able to tolerate much more than a small amount of liquids. Exam Vital Signs (past 8 hours): - 10/15/21 08:47 10/15/21 13:02 Temperature 99.3 F 99 F Pulse Rate 79 Respiratory Rate 27 H Blood Pressure 136/88 Pulse Oximetry 100 Oxygen Delivery Method Room Air Oxygen Flow Rate 0 Narrative Exam Narrative: General:? Patient is well developed and well nourished, mildly ill appearing, slightly diaphoretic and tremulous. HEENT:? Normocephalic, atraumatic, extraocular muscles intact, oral pharynx is clear and mucous membranes are moist. Neck: supple and symmetric, trachea is midline, no cervical adenopathy. Negative for JVD Chest:? Normal AP diameter and contour without kyphoscoliosis, no tachypnea, equal chest rise bilaterally. Lungs:? CTA b/l no wheezing rhonchi or rales. Cardio:?RRR no m/r/g. Abdomen: S mild RUQ/epigastric tenderness, negative coulter sign, minimal distension. Musculoskeletal:? Muscle strength and tone are equal within normal limits, no deformity. Extremities: No edema or joint effusions. No cyanosis or clubbing. Skin:? Pale,? Warm to touch,dry and intact without rashes, ulcerations or pe techiae.? Neuro:? Alert and orientated x3,? sensation to touch intact in all extremities, no gross deficits noted of cranial nerves. Mild tremulousness. Psych:? Patient has a well-kept appearance, appropriate affect, mental status attitude thought context and judgment are appropriate for age. Objective Labs Result Diagrams: 10/15/21 04:36 10/15/21 04:36 Labs: Laboratory Results - last 24 hr 10/14/21 10/15/21 10/15/21 10:28 04:36 04:36 WBC 6.0 RBC 3.86 L Hgb 13.6 Hct 38.6 L MCV 100.0 MCH 35.3 H MCHC 35.3 RDW 13.9 Plt Count 72 L Sodium 132 L Potassium 3.6 Chloride 106 Carbon Dioxide 24 BUN 3 L Creatinine 0.61 L Estimated GFR > 60.0 BUN/Creatinine Ratio 4.9 L Glucose 99 Calcium 8.1 L Magnesium 1.7 Urine Color Yellow Urine Appearance Cloudy Urine pH 8.5 H Ur Specific [place] 1.015 Urine Protein 2+ H Urine Glucose (UA) Negative Urine Ketones Trace H Urine Occult Blood 2+ H Urine Nitrate Negative Urine Bilirubin 1+ H Ur Bilirubin Confirm Negative Urine Urobilinogen 2.0 H Ur Leukocyte Esterase 2+ H Urine RBC 5-10/hpf H Urine WBC 30-100/hpf H Ur Squamous Epith Cells 0-1 /hpf D Urine Bacteria Many (>30) H Ur Culture Indicated? Specimen cultured [facility] Medical History Fatty liver due to alcoholism History of alcohol abuse Pancreatitis Surgical History S/P cholecystectomy Social History Smoking Status: Former smoker alcohol intake: former Assessment & Plan Assessment & Plan narrative: 61-year-old male with history of chronic pancreatitis and EtOH use in the past admitted with intractable nausea and vomiting, slowly improving today. 1. Intractable vomiting suspect recurrence of chronic condition which is multi factorial etiology.? - may be in setting of chronic gastritis, also with a history of chronic pancreatitis, and also has symptoms of possible mild alcohol withdrawal though patient states he hasn't been drinking. - despite negative lipase level, still could be acute on chronic pancreatitis. - continue anti-nauseal medications and start oral pain control today to see if improvement. Continue home PPI. - take diet back to clears today. - continue IV fluids. 2. History of alcohol abuse and possible alcohol withdrawal - patient denies recent EtOH, but symptoms could certainly be consistent with EtOH withdrawal as well. - continue ativan 1mg prn for possible withdrawal. 3.? Hypo magnesemia repleted, continue to follow. 4. Hypokalemia repleted, continue to follow. 5. HTN - will continue to hold home amlodipine today. restart if hypertensive consistently. Code status is full code Time Spent With Patient Critical Care time: I spent a total of [] minutes of critical care time on this patient's care today; this time is exclusive of procedural time.
--- NOTE | 2021-10-15 15:19 | CM.DPC ---
DCP Cont: Per MD, pt continues to have n/v and not tolerating diet and reverted back to clears and pt visually not feeling well. Per RN, pt still getting antinausea medication and pain management and no bowel tones yet. Pt still quite sick. Plan: SW to follow closely tomorrow for bedside assessment if pt more medically appropriate to participate in discussion to determine if any d/c planning needs. KAN Laird
--- NOTE | 2021-10-15 20:51 | PC.NURSE ---
Patient is alert and oriented; anxious earlier but now calm after having received Ativan. Denies any visual/auditory hallucinations. Breath sounds CTA with RA sat of 100%. HRR. States is slightly nauseated but not in need of any antiemetic. filter tank tender helper across upper abdomen but rating pain only as 4-5/10 and declines need for pain medication at this time. BT present and abdomen is soft. Denies dysuria, frequency or urgency with urination; voiding per urinal. Independent with bed mobility. Gait not assessed. Agreeable to having bilateral calf SCD's put on for the night. Seizure pads in place. Fall risk score is high and bed alarm is activated.
[2021-10-16 03:25] VITALS: BP 127/80; PULSE 68; RESP 18; TEMP 36.8; O2SAT 99
[2021-10-16] MEDS: ACETAMINOPHEN 325 MG TABLET 650 MG PO ×3 (05:17→18:25)
[2021-10-16] MEDS: OXYCODONE IR 5 MG TABLET PO ×2 (06:04→21:51)
[2021-10-16] MEDS: SODIUM CHLORIDE 0.9% 1,000 ML 150 ML IV ×2 (06:06→12:36)
[2021-10-16 06:19] LABS: BUN Creatinine Ratio 5.7 (6-22); Blood Urea Nitrogen 3 mg/dL (9-20); Calcium 8.3 mg/dL (8.4-10.2); Carbon Dioxide 21 mmol/L (22-32); Chloride 105 mmol/L (98-107); Estimated Glomerular Filt Rate > 60.0 mL/min (>60); Glucose 97 mg/dL (80-110); HEMOLYSIS < 15 (0-50); Magnesium 1.6 mg/dL (1.6-2.3); Potassium 3.3 mmol/L (3.4-5.1); Sodium 130 mmol/L (137-145)
[2021-10-16 07:00] VITALS: BP 145/93; PULSE 62; RESP 18; TEMP 36.8; O2SAT 95
[2021-10-16] MEDS: FOLIC ACID 1 MG TABLET PO (09:53)
[2021-10-16] MEDS: MAGNESIUM CHLORIDE 64 MG TABLET 128 MG PO (09:53)
[2021-10-16] MEDS: MULTIVITAMIN 1 TABLET 1 TAB PO (09:53)
[2021-10-16] MEDS: THIAMINE 100 MG TABLET PO (09:53)
[2021-10-16] MEDS: POTASSIUM CHLORIDE 20 MEQ TAB 40 MEQ PO ×2 (09:53→15:55)
[2021-10-16] MEDS: PANTOPRAZOLE 40 MG VIAL IV ×2 (09:53→21:44)
[2021-10-16 11:00] VITALS: BP 142/96; PULSE 72; RESP 18; TEMP 36.7; O2SAT 100
--- NOTE | 2021-10-16 11:14 | PC.NURSE ---
Addendum entered by Chely Swartz R.N. 10/16/21 13:37: Patient incontinent in bed, states that the urinal spilled. Patient is going to get a shower soon and bed will be changed. He has not had any more dry heaving and is resting comfortably. Original Note: Patient is feeling better today, upon assessing patient him, he had his genitalia showing in bed. This Rn told him that he needs to cover himself up. He took all of his medications fine with water. Denies pain. LABOR CREW SUPERVISOR just in room and patient breathing hard, he states that he always does this. Patient was not doing this earlier today. He does have some dry heaves but nothing is coming up. said if patient is feeling better he could possibly go home. Will check on patient in a bit to see how he is doing.
--- NOTE | 2021-10-16 11:39 | CM.DPNOTE ---
DCP Note According to Dr Shay; it's possible patient can DC home today depending on toleration of diet Checked in w/RN Chely; she denies needs for patient from this INDUCTION MACHINE OPERATOR and has already spoken w/patient about ETOH/resource need-Patient denies need for ESTER treatment/outpatient resources at this time, states he has been sober for weeks No DC needs identified from this INDUCTION MACHINE OPERATOR at this time, will remain available in case this changes before DC Plan: DC home,via pov JW
--- NOTE | 2021-10-16 12:15 | DIET.CONS ---
Dietary Consultation Note Admission Date: 10/14/2021 01:31 Assessment: 61y M admitted for N/V thought to be pancreatitis secondary to etoh use referred to nutrition for same. Pt has hx heavy etoh use, has been having N/V over the past month with associated 12.6% unintentional weight loss over the same time. Pt tolerating clear liquid diet, consuming 25-50% with zofran and reglan on board. Ht: 193.04 cm Wt: 79.379 kg BMI: 21.2 Last BM: 10/13/21 (10/14/21 01:42) MNA: 6 Selvin Score: 20 Diet: 10/15/21 Breakfast Clear Liquid Diet Diet Modifications: Nutrition Percent Meal Consumed 50% 10/16/21 08:45 Percent Meal Consumed 25% 10/15/21 18:05 Percent Meal Consumed 50% 10/15/21 13:26 Percent Meal Consumed 25% 10/15/21 12:10 Percent Meal Consumed pt refused meal 10/15/21 09:55 Percent Meal Consumed 25% 10/14/21 18:26 Labs: RBC 3.86 X10^6/uL (4.5-5.9) L 10/15/21 04:36 Hgb 13.6 g/dL (13.5-17.5) 10/15/21 04:36 Hct 38.6 % (41-53) L 10/15/21 04:36 Creatinine 0.53 mg/dL (0.66-1.25) L 10/16/21 05:55 Nutrition Diagnosis: Severe Acute Protein Calorie Malnutrition r/t intractable N/V aeb 12.6% unintentional weight loss in 1mo, pt c pancreatitis secondary to etoh use, pt tolerating 25-50% clear liquid diet c use of antiemetics. Interventions: 1. Recc ONS Ensure Clear c meal trays to support pts protein and kcal needs until able to tolerate regular diet. 2. Recc cessation of etoh use. Monitoring/Evaluations: following POs Electronically Signed by: Kelli Bland 10/16/21 12:15 Clinical Dietitian [address] [address]
[2021-10-16] MEDS: cefTRIAXone 1,000 MG in SODIUM CHLORIDE 0.9% 100 ML 200 ML IV (12:36)
[2021-10-16 15:00] VITALS: BP 147/94; RESP 16; TEMP 36.2; O2SAT 100
--- NOTE | 2021-10-16 17:45 | P.PN_ITS ---
Subjective Subjective Interval history: The patient endorses continued n/v today. He reports occassionally having a shot of liquor at home. However, he denies regular EtOH use. He does state that his current girlfriend drinks heavily, and was recently diagnosed with liver cancer. Exam Vital Signs (past 8 hours): - 10/16/21 11:00 Temperature 98.0 F Pulse Rate 72 Respiratory Rate 18 Blood Pressure 142/96 H Pulse Oximetry 100 Oxygen Delivery Method Room Air Oxygen Flow Rate 0 Const Other: Patient laying in bed comfortably upon my entering the room, in no apparent acu te distress. Eyes Other: No scleral icterus appreciated. Resp Other: Lungs clear to auscultation bilaterally. Cardio Other: RRR. S1 and S2 heart sounds normal, with no extra heart sounds or murmurs appreciated. No peripheral edema noted. GI Other: Soft, non-distended, non-tender. Bowel sounds present. Neuro Other: No signs of agitation, tremulousness, or anxiety appreciated. Extrem Other: Palpable dorsalis pedis pulses bilaterally. Objective Labs Result Diagrams: 10/15/21 04:36 10/16/21 05:55 Labs: Laboratory Results - last 24 hr 10/16/21 05:55 Sodium 130 L Potassium 3.3 L Chloride 105 Carbon Dioxide 21 L BUN 3 L Creatinine 0.53 L Estimated GFR > 60.0 BUN/Creatinine Ratio 5.7 L Glucose 97 Calcium 8.3 L Magnesium 1.6 PFSH Medical History Fatty liver due to alcoholism History of alcohol abuse Pancreatitis Surgical History S/P cholecystectomy Social History Smoking Status: Former smoker alcohol intake: former Assessment & Plan Assessment & Plan narrative: 61-year-old male with history of chronic pancreatitis and EtOH use in the past admitted with intractable nausea and vomiting, slowly improving today. 1. Intractable vomiting suspect recurrence of chronic condition which is multi factorial etiology.? ? - may be in setting of chronic gastritis, also with a history of chronic pancreatitis, and also has symptoms of possible mild alcohol withdrawal though patient states he hasn't been drinking. ?- despite negative lipase level, still could be acute on chronic pancreatitis. ?- continue anti-nauseal medications and start oral pain control today to see if improvement. Continue home PPI. ?- advance diet as tolerated today. ?- continue IV fluids. 2. History of alcohol abuse and possible alcohol withdrawal ?- patient denies recent EtOH, but symptoms could certainly be consistent with EtOH withdrawal as well. ?- continue ativan 1mg prn for possible withdrawal. 3.? Hypomagnesemia repleted, continue to follow. 4. Hypokalemia repleted, continue to follow. 5. HTN ?- will continue to hold home amlodipine today. restart if hypertensive consistently. Code status: Full code I have utilized all available immediate resources to reconcile the patient's current medications. Time Spent With Patient Critical Care time: I spent a total of [] minutes of critical care time on this patient's care today; this time is exclusive of procedural time. Quality MIPS - Admit I confirm the patient?s Advance Care Plan is present, Code status is documented, Surrogate decision maker is in patient?s record [If Yes, STOP here]: Yes
[2021-10-16] MEDS: NICOTINE 14 PATCH 14 MG TOP (18:25)
[2021-10-16 19:50] VITALS: BP 142/96; PULSE 68; RESP 18; TEMP 36.6; O2SAT 100
[2021-10-16] MEDS: LORazepam 2 MG/ML INJ 1 MG IV (21:59)
[2021-10-17] VITALS (7 sets, daily range): BP systolic 122–148; BP diastolic 80–93; PULSE 70–83; RESP 16–20; TEMP 36.1–36.6; O2SAT 98–99
[2021-10-17 05:18] LABS: BUN Creatinine Ratio 6.9 (6-22); Blood Urea Nitrogen 4 mg/dL (9-20); Calcium 8.6 mg/dL (8.4-10.2); Carbon Dioxide 24 mmol/L (22-32); Chloride 104 mmol/L (98-107); Estimated Glomerular Filt Rate > 60.0 mL/min (>60); Glucose 99 mg/dL (80-110); HEMOLYSIS < 15 (0-50); Magnesium 1.6 mg/dL (1.6-2.3); Potassium 3.8 mmol/L (3.4-5.1); Sodium 130 mmol/L (137-145)
--- NOTE | 2021-10-17 10:27 | DI.RAD.S_ITS ---
PROCEDURE: XR ABDOMEN 1V INDICATIONS: nausea and vomiting. TECHNIQUE: One view of the abdomen acquired. COMPARISON: [facility], CT, CT ABDOMEN PELVIS W CON, 09/17/2021, 12:55. [facility], US, US ABDOMEN LIMITED, 10/14/2021, 0:40. FINDINGS: Surgical changes and devices: Cholecystectomy clips are seen. Bowel: Bowel gas pattern is normal. Soft tissues: No suspicious abdominal calcifications. Visualized solid organ contours appear normal in size. Bones: No suspicious bony lesions. Age-appropriate bony degenerative changes are seen. IMPRESSION: A nonobstructive bowel gas pattern is seen. If clinically appropriate, please consider a repeat plain film study or a dedicated CT of the abdomen and pelvis, if the patient's symptoms persist or worsen. Dictated by: Colt Schwab M.D. on 10/17/2021 at 10:28 Approved by: Colt Schwab M.D. on 10/17/2021 at 10:28
--- NOTE | 2021-10-17 11:50 | PM.PN.1 ---
Subjective Subjective Interval history: The patient endorses continued nausea/vomiting, with 2 episodes of non-bloody, bilious emesis this morning. He endorses some ortiz-umbilical abd pain with it. He denies passing much gas, and did not have a BM yesterday. However, he was able to tolerate water sips. Will likely re-image today with abd X-ray 1 view, to start with. Exam Vital Signs (past 8 hours): - 10/17/21 04:49 10/17/21 08:00 Temperature 97.0 F L 97.7 F Pulse Rate 70 75 Respiratory Rate 16 16 Blood Pressure 148/91 H 142/93 H Pulse Oximetry 99 98 Oxygen Delivery Method Room Air Oxygen Flow Rate 0 Narrative Exam Narrative: Const Other: Patient laying in bed comfortably upon my entering the room, in no apparent acute distress. Eyes Other: No scleral icterus appreciated. Resp Other: Lungs clear to auscultation bilaterally. Cardio Other: RRR. S1 and S2 heart sounds normal, with no extra heart sounds or murmurs appreciated. No peripheral edema noted. GI Other: Soft, non-distended, slight tenderness with palpation over ortiz-umbilical area. Bowel sounds present. Neuro Other: No signs of agitation, tremulousness, or anxiety appreciated. Extrem Other: Palpable dorsalis pedis pulses bilaterally. Objective Labs Result Diagrams: 10/15/21 04:36 10/17/21 04:24 Labs: Laboratory Results - last 24 hr 10/17/21 04:24 Sodium 130 L Potassium 3.8 Chloride 104 Carbon Dioxide 24 BUN 4 L Creatinine 0.58 L Estimated GFR > 60.0 BUN/Creatinine Ratio 6.9 Glucose 99 Calcium 8.6 Magnesium 1.6 [facility] Medical History Fatty liver due to alcoholism History of alcohol abuse Pancreatitis Surgical History S/P cholecystectomy Social History Smoking Status: Former smoker alcohol intake: former Assessment & Plan Assessment & Plan narrative: 61-year-old male with history of chronic pancreatitis and EtOH use in the past admitted with intractable nausea and vomiting, slowly improving today. 1. Intractable vomiting suspect recurrence of chronic condition which is multi factorial etiology.? - May be in setting of chronic gastritis, also with a history of chronic pancreatitis, and also has symptoms of possible mild alcohol withdrawal though patient states he hasn't been drinking. - Despite negative lipase level, still could be acute on chronic pancreatitis. - Continue anti-nausea medications and start oral pain control today to see if improvement - Advance diet as tolerated today 2. History of alcohol abuse and possible alcohol withdrawal - Patient denies recent EtOH, but symptoms could be consistent with EtOH withdrawal as well - Continue ativan 1mg prn for possible withdrawal 3. UTI, with urine culture growing E. coli - IV ceftriaxone on-board 3.?Hypomagnesemia - Repleted, continue to follow 4. Hypokalemia - Repleted, continue to follow 5. HTN ?- Will resume home amlodipine with max dose VTE prophylaxis: Heparin 5000 units tid Time Spent With Patient Critical Care time: I spent a total of [] minutes of critical care time on this patient's care today; this time is exclusive of procedural time.
--- NOTE | 2021-10-17 12:08 | PC.NURSE ---
Addendum entered by Chely Swartz R.N. 10/17/21 18:45: CIWA score a 0. Patient is resting comfortably. Addendum entered by Chely Swartz R.N. 10/17/21 17:44: Patient resting comfortably and denies pain or nausea. Addendum entered by Chely Swartz R.N. 10/17/21 14:03: Gave patient his medications and he tolerated well without any nausea. Up in the chair for a couple of hours and denies any discomfort. IV antibiotic infusing now. Original Note: Assess- Patient complained of nausea x1, had a 100cc emesis . PO medication not given yet, he has been sleeping in his bed comfortably and tolerating some clear liquids. Will reapproach patient after he wakes up.
[2021-10-17] MEDS: cefTRIAXone 1,000 MG in SODIUM CHLORIDE 0.9% 100 ML 200 ML IV (13:29)
[2021-10-17] MEDS: MULTIVITAMIN 1 TABLET 1 TAB PO (13:29)
[2021-10-17] MEDS: CITALOPRAM 10 MG TABLET 40 MG PO (13:29)
[2021-10-17] MEDS: ACETAMINOPHEN 325 MG TABLET 650 MG PO (13:31)
[2021-10-17] MEDS: AMLODIPINE 5 MG TABLET 10 MG PO (13:31)
[2021-10-17] MEDS: FOLIC ACID 1 MG TABLET PO (13:32)
[2021-10-17] MEDS: THIAMINE 100 MG TABLET PO (13:34)
[2021-10-17] MEDS: NICOTINE 14 PATCH 14 MG TOP (13:34)
[2021-10-17] MEDS: MAGNESIUM CHLORIDE 64 MG TABLET 128 MG PO (13:35)
[2021-10-17] MEDS: HEPARIN 5,000 UNIT/ML VIAL 5000 UNIT SUBCUT (20:50)
[2021-10-17] MEDS: LORazepam 1 MG TABLET PO (20:51)
[2021-10-17] MEDS: OXYCODONE IR 5 MG TABLET PO (20:51)
[2021-10-17] MEDS: SODIUM CHLORIDE 0.9% FLUSH 10 ML IV (21:37)
[2021-10-18 00:51] VITALS: BP 135/85; PULSE 85; RESP 16; TEMP 37.3; O2SAT 99
[2021-10-18 05:00] VITALS: BP 151/87; PULSE 94; RESP 16; TEMP 36.6; O2SAT 99
[2021-10-18 05:24] LABS: BUN Creatinine Ratio 13.2 (6-22); Blood Urea Nitrogen 7 mg/dL (9-20); Calcium 8.2 mg/dL (8.4-10.2); Carbon Dioxide 24 mmol/L (22-32); Chloride 101 mmol/L (98-107); Estimated Glomerular Filt Rate > 60.0 mL/min (>60); Glucose 98 mg/dL (80-110); HEMOLYSIS < 15 (0-50); Magnesium 1.5 mg/dL (1.6-2.3); Potassium 3.4 mmol/L (3.4-5.1); Sodium 129 mmol/L (137-145)
[2021-10-18] MEDS: PANTOPRAZOLE DR 40 MG TABLET PO (06:07)
[2021-10-18] MEDS: OXYCODONE IR 5 MG TABLET PO (06:09)
--- NOTE | 2021-10-18 06:11 | PC.NURSE ---
Pt. reported feels a lot better this morning the last evening. Denies any anxiety, nausea, headache, no tremors noted & no hallucination. C/O abdominal pain rated pain level 5-6/10, medicated with 5 mg. of Oxycodone. Will cont. POC & monitor.
[2021-10-18] MEDS: MAGNESIUM SULFATE 4 GM/100 ML PIGGYBACK IV (08:46)
[2021-10-18] MEDS: AMLODIPINE 5 MG TABLET 10 MG PO (09:18)
[2021-10-18] MEDS: CITALOPRAM 10 MG TABLET 40 MG PO (09:18)
[2021-10-18] MEDS: THIAMINE 100 MG TABLET PO (09:18)
[2021-10-18] MEDS: MULTIVITAMIN 1 TABLET 1 TAB PO (09:19)
[2021-10-18] MEDS: FOLIC ACID 1 MG TABLET PO (09:19)
[2021-10-18] MEDS: HEPARIN 5,000 UNIT/ML VIAL 5000 UNIT SUBCUT (09:19)
[2021-10-18 10:17] VITALS: BP 124/75; PULSE 73; RESP 18; TEMP 36.3; O2SAT 98
--- NOTE | 2021-10-18 11:28 | P.PN_ITS ---
Subjective Subjective Interval history: The patient endorses resolution of his n/v this morning, along with his abd pain. He requests to go home as he feels back to baseline. Will discharge home on PO cefdinir to complete abx therapy for UTI. Exam Vital Signs (past 8 hours): - 10/18/21 05:00 10/18/21 10:17 Temperature 97.8 F 97.3 F L Pulse Rate 94 H 73 Respiratory Rate 16 18 Blood Pressure 151/87 H 124/75 Pulse Oximetry 99 98 Oxygen Delivery Method Room Air Oxygen Flow Rate 0 Narrative Exam Narrative: Const Other: Patient laying in bed comfortably upon my entering the room, in no apparent acute distress. Eyes Other: No scleral icterus appreciated. Resp Other: Lungs clear to auscultation bilaterally. Cardio Other: RRR. S1 and S2 heart sounds normal, with no extra heart sounds or murmurs appreciated. No peripheral edema noted. GI Other: Soft, non-distended, non-tender. Bowel sounds present. Neuro Other: No signs of agitation, tremulousness, or anxiety appreciated. Extrem Other: Palpable dorsalis pedis pulses bilaterally. Objective Labs Result Diagrams: 10/15/21 04:36 10/18/21 04:46 Labs: Laboratory Results - last 24 hr 10/18/21 04:46 Sodium 129 L Potassium 3.4 Chloride 101 Carbon Dioxide 24 BUN 7 L Creatinine 0.53 L Estimated GFR > 60.0 BUN/Creatinine Ratio 13.2 Glucose 98 Calcium 8.2 L Magnesium 1.5 L PFSH Medical History Fatty liver due to alcoholism History of alcohol abuse Pancreatitis Surgical History S/P cholecystectomy Social History Smoking Status: Former smoker alcohol intake: former Assessment & Plan Assessment & Plan narrative: 61-year-old male with history of chronic pancreatitis and EtOH use in the past admitted with intractable nausea and vomiting, improving today. 1. Intractable vomiting suspect recurrence of chronic condition which is multi factorial etiology, resolved - May be in setting of chronic gastritis, also with a history of chronic pancreatitis, and also has symptoms of possible mild alcohol withdrawal though patient states he hasn't been drinking - Despite negative lipase level, still could be acute on chronic pancreatitis 2. History of alcohol abuse and possible alcohol withdrawal, improving - Patient denies recent EtOH, but symptoms could be consistent with EtOH withdra wal as well - Continue ativan 1mg prn for possible withdrawal 3. UTI, with urine culture growing E. coli - IV ceftriaxone on-board, and will continue PO cefdinir 300 mg bid as outpatient to complete abx therapy 4.?Hypomagnesemia - Repleted, continue to follow 5. Hypokalemia - Repleted, continue to follow 6. HTN ?- Will resume home amlodipine with max dose VTE prophylaxis: Heparin 5000 units tid Time Spent With Patient Critical Care time: I spent a total of [] minutes of critical care time on this patient's care toda y; this time is exclusive of procedural time.
--- NOTE | 2021-10-18 11:31 | PM.DS.1 ---
History of Present Illness History of Present Illness Chief complaint: vomiting/chest burning Narrative: This is a pleasant 61-year-old male who presents to the emergency department for intractable vomiting.? Patient has a long history of same.? He has been to the ER multiple times for the same reason.? He has a long history of pancreatitis, esophagitis, alcohol disuse syndrome and pancreatic pseudocyst.? He underwent an EGD at [facility] September 17.? It showed esophagitis and use placed on Protonix 40 mg twice daily.? He has been taking this.? He has not had any alcohol for 6 weeks.? He is now not been able to hold anything down.? He was given IV fluids and Zofran and and the relative am and still with persistent vomiting even of water.? He was found have profound hypokalemia and hypomagnesemia and those have both been replaced while in the ER..? Due to persistent vomiting despite at times it was determined to admit him to the hospital. Past medical history: Esophagitis Pancreatitis Recurrent bouts of intractable vomiting Fatty liver disease Alcohol disuse syndrome Allergies: Sulfa Past surgical history: Cholecystectomy Social history:? Patient is currently living in an at [facility].? Patient's girlfriend is currently being treated for cancer. Patient is to grown children who are healthy. Health related behavior: Patient has not had alcohol for 6 weeks.? Patient previously drank on a regular basis. Patient does not smoke Family history:? Mom in her mid 60s.? Had a stroke and then developed diabetes. Father from a massive acute [place] in his late 60s Patient has 2 children who are alive and healthy Review of systems Patient denies any chest pain or shortness of breath.? Patient denies any fever or chills.? Patient denies any cough Patient denies any headache Patient denies any bloody stools Patient is losing weight.? He is not able to eat much.? Constant abdominal pain and not much appetite Written by admitting provider. Discharge Providers Provider Date of admission: 10/14/21 01:31 Discharge Date: 10/18/21 Primary care physician: Adore Garcia Consults: 10/13/21 23:25 Consult to [facility] [place] - Dancing Teacher Stat Comment: [employer] Consult needed for:: Social Determinants issue 10/14/21 02:16 Consult to Dietitian, Adult Routine Comment: Reason For Exam: severe nausea, unable to tolerate PO anything Consult to [employer] - Dancing Teacher Routine Comment: Discharge provider: Kenyatta Shay MD Summary Hospital Course Discharge Diagnosis: 61-year-old male with history of chronic pancreatitis and EtOH use in the past admitted with intractable nausea and vomiting, improving today. 1. Intractable vomiting suspect recurrence of chronic condition which is multi factorial etiology, resolved - May be in setting of chronic gastritis, also with a history of chronic pancreatitis, and also has symptoms of possible mild alcohol withdrawal though patient states he hasn't been drinking - Despite negative lipase level, still could be acute on chronic pancreatitis 2. History of alcohol abuse and possible alcohol withdrawal, improving - Patient denies recent EtOH, but symptoms could be consistent with EtOH withdrawal as well 3. UTI, with urine culture growing E. coli, improving - IV ceftriaxone inpatient, and will continue PO cefdinir 300 mg bid as outpatient to complete abx therapy 4. Hypomagnesemia - Repleted, continue to follow 5. Hypokalemia - Repleted, continue to follow 6. HTN ?- Will resume home amlodipine with max dose Exam Vital Signs (past 8 hours): - 10/18/21 05:00 10/18/21 10:17 Temperature 97.8 F 97.3 F L Pulse Rate 94 H 73 Respiratory Rate 16 18 Blood Pressure 151/87 H 124/75 Pulse Oximetry 99 98 Oxygen Delivery Method Room Air Oxygen Flow Rate 0 Objective Labs Result Diagrams: 10/15/21 04:36 10/18/21 04:46 Labs: Laboratory Results - last 24 hr 10/18/21 04:46 Sodium 129 L Potassium 3.4 Chloride 101 Carbon Dioxide 24 BUN 7 L Creatinine 0.53 L Estimated GFR > 60.0 BUN/Creatinine Ratio 13.2 Glucose 98 Calcium 8.2 L Magnesium 1.5 L [facility] Medical History Fatty liver due to alcoholism History of alcohol abuse Pancreatitis Surgical History S/P cholecystectomy Social History Smoking Status: Former smoker alcohol intake: former Discharge Assessment & Plan Assessment and Plan Assessment: 61-year-old male with history of chronic pancreatitis and EtOH use in the past admitted with intractable nausea and vomiting, improving today. 1. Intractable vomiting suspect recurrence of chronic condition which is multi factorial etiology, resolved - May be in setting of chronic gastritis, also with a history of chronic pancreatitis, and also has symptoms of possible mild alcohol withdrawal though patient states he hasn't been drinking - Despite negative lipase level, still could be acute on chronic pancreatitis 2. History of alcohol abuse and possible alcohol withdrawal, improving - Patient denies recent EtOH, but symptoms could be consistent with EtOH withdrawal as well 3. UTI, with urine culture growing E. coli, improving - IV ceftriaxone inpatient, and will continue PO cefdinir 300 mg bid as outpatient to complete abx therapy 4. Hypomagnesemia - Repleted, continue to follow 5. Hypokalemia - Repleted, continue to follow 6. HTN ?- Will resume home amlodipine with max dose Discharge Plan Discharge Plan Patient Disposition: Home Discharge orders & Medications Prescriptions: New cefdinir 300 mg capsule 300 mg PO BID Qty: 7 0RF Continued citalopram 40 mg tablet 40 mg PO DAILY 0RF Label Comments: TAKE 1 TABLET (40mg) BY MOUTH EVERY DAY amlodipine 2.5 mg tablet 2.5 mg PO DAILY 0RF Label Comments: TAKE 1 TABLET (2.5mg) BY MOUTH EVERY DAY omeprazole 40 mg capsule,delayed release(DR/EC) 40 mg PO DAILY 0RF Label Comments: TAKE 1 CAPSULE (40mg) BY MOUTH EVERY MORNING BEFORE BREAKFAST lorazepam 0.5 mg tablet 0.5 mg PO BID PRN (Reason: nausea and vomiting) Qty: 14 0RF ondansetron 4 mg tablet,disintegrating 4 mg PO Q8H PRN (Reason: nausea and vomiting) Qty: 10 0RF Follow up/Referrals: [facility], [Other]
--- NOTE | 2021-10-18 12:36 | PC.NURSE ---
Pt denies any discomfort. Orders for D/C after Mg rider. Lungs clear, SpO2 98% RA Denies nausea. D/C instructions & RX given to pt w/understanding. Pt okayed by to drive self home. pt has had no narcotics. Pt escorted by staff to personal vehicle in stable condition.
== END 2021-10-18 13:42 | disposition home or self-care (01) | DRG 241 ==
LOC: ED 10-14 01:31 → AC 10-14 01:32
PROVIDERS: Family Medicine; Internal Medicine; Admitting Provider Internal Medicine; Emergency Provider Emergency Medicine; Referring Provider Emergency Medicine; Visit Provider Internal Medicine
DX: K29.70 Gastritis, unspecified, without bleeding (principal); E87.6 Hypokalemia; K85.90 Acute pancreatitis without necrosis or infection, unspecified; E43 Unspecified severe protein-calorie malnutrition; K86.1 Other chronic pancreatitis; E83.42 Hypomagnesemia; N39.0 Urinary tract infection, site not specified; B96.20 Unspecified Escherichia coli [E. coli] as the cause of diseases classified elsewhere; I10 Essential (primary) hypertension; E86.0 Dehydration; F10.21 Alcohol dependence, in remission; Y90.0 Blood alcohol level of less than 20 mg/100 ml; Z68.21 Body mass index [BMI] 21.0-21.9, adult; Z20.822 Contact with and (suspected) exposure to COVID-19; Z87.891 Personal history of nicotine dependence
CPT/HCPCS: 36415; 74018; 76705; 80048; 80053; 80305; 80320; 81001; 83690; 83735; 85025; 85027; 85610; 87077; 87086; 87186; 87635; 99284; 99285; C9803; C9113; J0696; J1644; J2060; J2405; J3475